=== PATIENT | male | born 1945 | race Caucasian/White ===

== ENCOUNTER 2020-12-20 13:42 | Inpatient (IN) ==
[2020-12-20] MEDS ORDERED: SODIUM CHLORIDE 0.9% 1000ML 1,000 ML IV STA (14:36)
[2020-12-20] MEDS ORDERED: ONDANSETRON INJ 2 MG/ML 2 ML VIAL IV STA (14:36)
[2020-12-20] MEDS ORDERED: SODIUM CHLORIDE 0.9% 500 ML IV STA (14:36)
[2020-12-20 15:02] LABS: Basophils # (auto) 0.02 K/uL (0-0.2); Basophils % (auto) 0.2 %; Eosinophils # (auto) 0.01 K/uL (0-0.5); Eosinophils % (auto) 0.1 %; Hematocrit (blood only) 46.1 % (42-52); Hemoglobin 15.9 g/dL (14.0-18.0); Immature Granulocytes # (auto) 0.05 K/uL (0.00-0.02); Immature Granulocytes % (auto) 0.5 %; Lymphocytes # (auto) 0.74 K/uL (1.2-3.4); Lymphocytes % (auto) 7.6 %; Mean Corpuscular Hemoglobin 32.1 pg (25-34); Mean Corpuscular Hgb Conc 34.5 g/dL (32-36); Mean Corpuscular Volume 92.9 fL (80-100); Monocytes # (auto) 0.66 K/uL (0.11-0.59); Monocytes % (auto) 6.8 %; Neutrophils # (auto) 8.23 K/uL (1.4-6.5); Neutrophils % (auto) 84.8 %; Platelet Count 401 K/uL (130-400); RDW Coefficient of Variation 13.6 % (11.5-14.5); RDW Standard Deviation 46.5 fL (36.4-46.3); Red Blood Count 4.96 M/uL (4.7-6.1); White Blood Count 9.71 K/uL (4.8-10.8)
--- NOTE | 2020-12-20 15:09 | XRay Report ---
XR chest 1V portable CLINICAL HISTORY: Dyspnea, +covid TECHNIQUE: Single frontal radiograph of the chest was obtained. Comparison: None available at the time of this dictation. FINDINGS: No lines and tubes are seen. The cardiomediastinal silhouette is normal. Multifocal airspace opacitie s are seen. No evidence of pleural effusion or pneumothorax. IMPRESSION: Multifocal airspace opacities are seen which likely represent atelectasis, pneumonia, and/or aspirati on. ACT 112: Negative or not required by law. Electronically signed by: Tung Dias M.D. 12/20/2020 3:07 PM
[2020-12-20 15:44] LABS: Alanine Aminotransferase 83 U/L (12-78); Albumin Globulin Ratio 0.6 (0.9-2); Albumin Level 2.8 gm/dl (3.4-5.0); Alkaline Phosphatase 72 U/L (45-117); BUN Creatinine Ratio 23.1 (10-20); Bilirubin,Total 1.3 mg/dl (0.2-1); Blood Urea Nitrogen 24 mg/dl (7-18); Calcium 9.4 mg/dl (8.5-10.1); Carbon Dioxide 23 mmol/L (21-32); Chloride 108 mmol/L (98-107); Est GFR (African American) 83.5 ml/min; Est GFR (Non-African American) 72.1 ml/min; Globulin 4.8 gm/dl (2.5-4.0); Glucose 136 mg/dl (70-99); NT Pro B Type Natriuretic Pept 152 pg/ml (0-900); Sodium 138 mmol/L (136-145); Total Protein 7.6 gm/dl (6.4-8.2); Troponin I < 0.015 ng/ml (0-0.045)
[2020-12-20] MEDS ORDERED: dexAMETHasone**PF** 10 MG/ML VIAL IV ONE (15:49)
[2020-12-20] MEDS ORDERED: ALBUT/IPRATROP 3MG/0.5MG NEB 3 ML VIAL NEB STA (15:52)
[2020-12-20 16:13] LABS: Appearance Urine Clear (Clear); Bacteria Urine Automated Negative (Negative); Bilirubin Urine Negative (Negative); Blood Urine Negative (Negative); Color Urine Orange; Glucose Urine UA Negative (Negative); Ketones Urine Trace (Negative); Leukocyte Esterase Urine Negative (Negative); Nitrite Urine Negative (Negative); Protein Urine 1+ (Negative); RBC Urine Automated 0-4 /hpf (0-4); Specific Gravity Urine 1.029 (1.000-1.030); Urobilinogen Urine Positive (Negative); pH Urine 5.5 (4.5-7.5)
[2020-12-20 16:21] LABS: Potassium 4.2 mmol/L (3.5-5.1)
[2020-12-20 16:26] LABS: Magnesium 2.8 mg/dl (1.8-2.4)
--- NOTE | 2020-12-20 17:06 | Emergency Department Note ---
Impression & Plan COVID-19, Hypoxia, Pneumonia ED Provider Note INFORMANT: Patient ED PROVIDER(S): Jose Purvis MD CHIEF COMPLAINT: Shortness of breath PLAN: Disposition: Admitted Condition: Guarded Outpatient prescription management: none Referral: None MEDICAL DECISION MAKING: Patient presented because of shortness of breath and known Covid infection. A work-up was initiated. His chest x-ray shows significant pneumonia consistent with COVID-19. He was requiring supplemental oxygen via nasal cannula and this had to be increased. He was titrated anoxia mask and then went to high flow oxygen. He was doing better with a high flow oxygen. He was given IV Decadron. He was also given albuterol nebulizer treatment. His hypoxia resolved with the above therapies. He will need further management in the hospital. [facility] Case was discussed. Patient was evaluated in the ER admitted for further management. Triage Nursing notes reviewed and agree them. Vital Signs: reviewed and remarkable for hypoxia Differential diagnosis: Reactive airway disease, pneumonia, pneumothorax, COPD, CHF, infections, cardiac ischemia, pulmonary embolism, musculoskeletal, gastrointestinal, as well as other pathologies. COVID-19, Diagnostics interpreted by me: ECG: Twelve-lead ECG reveals sinus rhythm with PACs at 97 bpm. Poor R wave progression. No ST elevation or depression. No PVCs. Cardiac Monitoring: Cardiac monitoring ordered by me: The patient was placed on continuous cardiac monitoring and observed. It revealed a normal sinus rhythm at 77 beats per minute without ectopy or evidence of dysrhythmia. Imaging studies: Chest x-ray consistent with Covid pneumonia. I refer you to the EMR for further details. HPI: The patient is a 75 year old male who presents to the Emergency Room with complaints of shortness of breath. This started over a week ago and is worsening. The patient also notes the following associated symptoms, cough, fat igue. The patient has been seen at the [facility] and was admitted overnight 5 days ago. He was treated with steroids and discharged with oxygen. The patient states that he has been struggling at home due to the shortness of breath. Current pain is rated as 0/10. Patient is unvaccinated. Pt denies LOC, headache, fevers, chills, diaphoresis, visual changes, neck pain, chest pain, nausea, vomiting, abdominal pain, back pain, melena, hematochezia, urinary symptoms, numbness, focal weakness, lymphadenopathy, rash, or other complaints. ROS: See above HPI for pertinent positives & negatives. A total of 10 systems reviewed and were otherwise negative. PAST MEDICAL HISTORY:See Below , patient denies PAST SURGICAL HISTORY:See Below, appendectomy FAMILY HISTORY:See Below SOCIAL HISTORY:See Below, never-smoker HOME MEDICATIONS:See Below ALLERGIES:See Below VITALS:See Below PHYSICAL EXAMINATION: GENERAL: Awake, alert, dyspneic-appearing, in no distress HENT: Normocephalic, atraumatic. Oropharynx unremarkable. EYES: Normal conjunctiva. Sclera non-icteric. NECK: Inspection normal. Non-tender. Supple. No nuchal rigidity. FROM. No m asses. RESPIRATORY: No wheezes. Scattered rales. Increased respiratory effort. CARDIAC: Normal rate. Normal rhythm. No murmurs. No rubs. Extremities warm and well perfused. Pulses equal. No JVD. GI: Soft, non-distended. No tenderness to palpation. No rebound or guarding. No masses. RECTAL: Deferred. MUSCULOSKELETAL: Atraumatic. Chest examination reveals no tenderness. The back is symmetrical on inspection without obvious abnormality. There is no CVA tenderness to palpation. No joint edema. LOWER EXTREMITIES: Calves are equal size bilaterally and non-tender. Trace edema. No discoloration. NEURO: Normal sensorium. No sensory or motor deficits noted. SKIN: No rash or jaundice noted. CRITICAL CARE: I have personally spent greater than 35 minutes of critical care time in the direct management of this patient. This includes bedside care, interpretation of diagnostic studies, and testing, discussion with consultants, patient, and other required patient management activities. These minutes are in excess of all separately billable procedures. Jose Purvis MD Past Med/Surg History Social History Smoking Status: Never smoker Feels Safe at Home: Yes Results & Data (ED) Vital Signs Vital Signs - 24 hr 12/20/20 13:51 12/20/20 13:56 12/20/20 14:39 Temperature 36.3 C L Temperature Source Temporal Artery Scan Pulse Rate 103 H Pulse Rate [Finger] Respiratory Rate 20 Respiratory Effort / Characteristics Non-Labored Spontaneous Respiratory Depth Normal Respiratory Pattern Regular Blood Pressure 119/83 Blood Pressure [Left Arm] Blood Pressure Mean 95 Blood Pressure Mean [Left Arm] Blood Pressure Position Sitting Pulse Oximetry 83 L 93 Oxygen Delivery Method Room Air Nasal Cannula Oxymask Oxygen Flow Rate 4 6 Fraction of Inspired Oxygen SaO2/FiO2 Ratio Sepsis Recent Fever Within 48 Hours No Sepsis New/Unexplained Change in Mental Status No Sepsis Action Taken by Nursing No Action Required 12/20/20 15:44 12/20/20 16:23 12/20/20 17:05 Temperature Temperature Source Pulse Rate Pulse Rate [Finger] 89 86 77 Respiratory Rate 20 20 24 Respiratory Effort / Characteristics Non-Labored Spontaneous Respiratory Depth Respiratory Pattern Blood Pressure Blood Pressure [Left Arm] 134/94 117/75 Blood Pressure Mean Blood Pressure Mean [Left Arm] 107 89 Blood Pressure Position Pulse Oximetry 83 L 93 93 Oxygen Delivery Method Oxymask High Flow Nasal Cannula High Flow Nasal Cannula Oxygen Flow Rate 7 50 50 Fraction of Inspired Oxygen 100 100 SaO2/FiO2 Ratio 93 Sepsis Recent Fever Within 48 Hours Sepsis New/Unexplained Change in Mental Status Sepsis Action Taken by Nursing Laboratory Data Result diagrams: 12/20/20 14:51 12/20/20 15:57 Lab Results 12/20/20 12/20/20 12/20/20 Range/Units 14:51 14:51 14:55 WBC 9.71 (4.8-10.8) K/uL RBC 4.96 (4.7-6.1) M/uL Hgb 15.9 (14.0-18.0) g/dL Hct 46.1 (42-52) % MCV 92.9 (80-100) fL MCH 32.1 (25-34) pg MCHC 34.5 (32-36) g/dL RDW Std Deviation 46.5 H (36.4-46.3) fL RDW Coeff of Gabriel 13.6 (11.5-14.5) % Plt Count 401 H (130-400) K/uL MPV 10.0 (7.4-10.4) fL Immature Gran % (Auto) 0.5 % Neut % (Auto) 84.8 % Lymph % (Auto) 7.6 % Patrick % (Auto) 6.8 % Eos % (Auto) 0.1 % Baso % (Auto) 0.2 % Neut # (Auto) 8.23 H (1.4-6.5) K/uL Lymph # (Auto) 0.74 L (1.2-3.4) K/uL Patrick # (Auto) 0.66 H (0.11-0.59) K/uL Eos # (Auto) 0.01 (0-0.5) K/uL Baso # (Auto) 0.02 (0-0.2) K/uL Immature Gran # (Auto) 0.05 H (0.00-0.02) K/uL Sodium 138 (136-145) mmol/L Potassium (3.5-5.1) mmol/L Chloride 108 H (98-107) mmol/L Carbon Dioxide 23 (21-32) mmol/L Anion Gap 7.0 (3-11) BUN 24 H (7-18) mg/dl Creatinine 1.02 (0.6-1.4) mg/dl Est Cr Clr Drug Dosing Not Reportable Est GFR ( Amer) 83.5 ml/min Est GFR (Non-Af Amer) 72.1 ml/min BUN/Creatinine Ratio 23.1 H (10-20) Glucose 136 H (70-99) mg/dl Calcium 9.4 (8.5-10.1) mg/dl Magnesium (1.8-2.4) mg/dl Total Bilirubin 1.3 H (0.2-1) mg/dl AST (15-37) U/L ALT 83 H (12-78) U/L Alkaline Phosphatase 72 (45-117) U/L Troponin I < 0.015 (0-0.045) ng/ml NT-Pro-B Natriuret Pep 152 (0-900) pg/ml Total Protein 7.6 (6.4-8.2) gm/dl Albumin 2.8 L (3.4-5.0) gm/dl Globulin 4.8 H (2.5-4.0) gm/dl Albumin/Globulin Ratio 0.6 L (0.9-2) Urine Color Urine Appearance (Clear) Urine pH (4.5-7.5) Ur Specific [place] (1.000-1.030) Urine Protein (Negative) Urine Glucose (UA) (Negative) Urine Ketones (Negative) Urine Blood (Negative) Urine Nitrite (Negative) Urine Bilirubin (Negative) Urine Urobilinogen (Negative) Ur Leukocyte Esterase (Negative) Urine WBC (Auto) (0-5) /hpf Urine RBC (Auto) (0-4) /hpf U Hyaline Cast (Auto) (0-5) /lpf U Epithel Cells (Auto) (0-5) /lpf Urine Bacteria (Auto) (Negative) COVID-19 Eval Order Covid19 at [facility] SARS-CoV-2 (PCR) (Negative) 12/20/20 12/20/20 12/20/20 Range/Units 14:55 15:57 16:05 WBC (4.8-10.8) K/uL RBC (4.7-6.1) M/uL Hgb (14.0-18.0) g/dL Hct (42-52) % MCV (80-100) fL MCH (25-34) pg MCHC (32-36) g/dL RDW Std Deviation (36.4-46.3) fL RDW Coeff of Gabriel (11.5-14.5) % Plt Count (130-400) K/uL MPV (7.4-10.4) fL Immature Gran % (Auto) % Neut % (Auto) % Lymph % (Auto) % Patrick % (Auto) % Eos % (Auto) % Baso % (Auto) % Neut # (Auto) (1.4-6.5) K/uL Lymph # (Auto) (1.2-3.4) K/uL Patrick # (Auto) (0.11-0.59) K/uL Eos # (Auto) (0-0.5) K/uL Baso # (Auto) (0-0.2) K/uL Immature Gran # (Auto) (0.00-0.02) K/uL Sodium (136-145) mmol/L Potassium 4.2 (3.5-5.1) mmol/L Chloride (98-107) mmol/L Carbon Dioxide (21-32) mmol/L Anion Gap (3-11) BUN (7-18) mg/dl Creatinine (0.6-1.4) mg/dl Est Cr Clr Drug Dosing Est GFR ( Amer) ml/min Est GFR (Non-Af Amer) ml/min BUN/Creatinine Ratio (10-20) Glucose (70-99) mg/dl Calcium (8.5-10.1) mg/dl Magnesium 2.8 H (1.8-2.4) mg/dl Total Bilirubin (0.2-1) mg/dl AST 40 H (15-37) U/L ALT (12-78) U/L Alkaline Phosphatase (45-117) U/L Troponin I (0-0.045) ng/ml NT-Pro-B Natriuret Pep (0-900) pg/ml Total Protein (6.4-8.2) gm/dl Albumin (3.4-5.0) gm/dl Globulin (2.5-4.0) gm/dl Albumin/Globulin Ratio (0.9-2) Urine Color [place] Urine Appearance Clear (Clear) Urine pH 5.5 (4.5-7.5) Ur Specific [place] 1.029 (1.000-1.030) Urine Protein 1+ H (Negative) Urine Glucose (UA) Negative (Negative) Urine Ketones Trace H (Negative) Urine Blood Negative (Negative) Urine Nitrite Negative (Negative) Urine Bilirubin Negative (Negative) Urine Urobilinogen Positive H (Negative) Ur Leukocyte Esterase Negative (Negative) Urine WBC (Auto) 1-5 (0-5) /hpf Urine RBC (Auto) 0-4 (0-4) /hpf U Hyaline Cast (Auto) 5-10 H (0-5) /lpf U Epithel Cells (Auto) 5-10 H (0-5) /lpf Urine Bacteria (Auto) Negative (Negative) COVID-19 Eval Order SARS-CoV-2 (PCR) POSITIVE A* (Negative) Administered Medications Sodium Chloride (Nss 1000ml) 1,000 mls @ 125 mls/hr IV .Q8H STA Stop: 12/20/20 22:35 Last Infusion: 12/20/20 16:24 Dose: 0 mls/hr Documented by: [id number] Admin: 12/20/20 15:39 Dose: 125 mls/hr Documented by: [id number] Discontinued Medications Albuterol (Albut/Ipratrop 3mg/0.5mg Neb 3 Ml Vial) 3 ml NEB NOW STA Stop: 12/20/20 15:53 Last Admin: 12/20/20 16:08 Dose: 3 ml Documented by: [id number] Dexamethasone Sodium Phosphate (DexamethasonePf 10 Mg/Ml Vial) 6 mg IV NOW ONE Stop: 12/20/20 15:50 Last Admin: 12/20/20 16:04 Dose: 6 mg Documented by: [id number] Sodium Chloride (Nss) 500 mls @ 999 mls/hr IV .Q31M STA Stop: 12/20/20 15:06 Last Infusion: 12/20/20 16:24 Dose: 0 mls/hr Documented by: [id number] Admin: 12/20/20 15:39 Dose: 999 mls/hr Documented by: [id number] Ondansetron HCl (Ondansetron Inj 2 Mg/Ml 2 Ml Vial) 4 mg IV NOW STA Stop: 12/20/20 14:37 Last Admin: 12/20/20 15:39 Dose: 4 mg Documented by: [id number] Imaging Data Radiologist's Impression: Chest X-Ray 12/20/20 14:36 XR chest 1V portable CLINICAL HISTORY: Dyspnea, +covid TECHNIQUE: Single frontal radiograph of the chest was obtained. Comparison: None available at the time of this dictation. FINDINGS: No lines and tubes are seen. The cardiomediastinal silhouette is normal. Multifocal airspace opacities are seen. No evidence of pleural effusion or pneumothorax. IMPRESSION: Multifocal airspace opacities are seen which likely represent atelectasis, pneumonia, and/or aspiration. ACT 112: Negative or not required by law. Electronically signed by: Tung Dais M.D. 12/20/2020 3:07 PM Discharge Plan Visit Data Chief Complaint: Illness Stated Complaint: PNEUMONIA, COVID+, SOB ED Provider: Jose Purvis Discharge Problem: COVID-19, Hypoxia, Pneumonia Forms Stand Alone Forms: My [facility] Referrals Referrals: PCP,NO [Primary Care Provider] -
--- NOTE | 2020-12-20 17:32 | History & Physical Report ---
Date of Service December 20, 2020 Assessment & Plan (1) Acute respiratory failure: Plan: Approx 12-13 days of symptoms at this point-no remdesivir offered. Pt questioned me about hydroxychloroquine and we discussed why this is inappropriate. He denied using this or other methods of treating this current pneumonia. He reports taking vitamins at home. He was taking prednisone at home but not eating much and ultimately needs hi flow oxygen support at this time. Cont to provide hi flow support and encourage to prone as often as possible. Cont decadron daily. Trend CRP. (2) Pneumonia due to COVID-19 virus: Plan: Cont plan as above. (3) Appetite loss: Plan: 2/2 viral illness. Regular unrestricted diet ordered. Monitor PO intake as this has been poor at home. (4) DVT prophylaxis: Plan: Lovenox Full Code Dispo-to PCU. [facility] History of Present Illness Chief Complaint: worsening shortness of breath Primary Care Provider: NO PCP 75 yo M who presents with worsening shortness of breath. He reports having a nonproductive cough and generalized malaise with some nausea and low appetite since mid November. He then went to an urgent care where he was found to be hypoxic and was then sent to the ER in [place], [place]. There he reports being admitted overnight and was given steroids. He reports a "workup for blood clot" which was negative. He was diagnosed at that time with covid pneumonia and was sent home after one day with oxygen at 4LPM. He reports feeling weak and uncertain on his feet at home, with increasing worsening shortness of breath. His cough has resolved. He denies any fevers, chills, abdominal pain, chest pain, headache, urinary symptoms, GI symptoms. He is still not eating much reportedly eating only applesauce yesterday and nothing today. He is requiring hi flow oxygen supplementation in the ER. He has persistent pneumonia on chest imaging. I contacted his by phone who has similar symptoms and corroborates his story. Allergies Allergy/AdvReac Type Severity Reaction Status Date / Time No Known Allergies Allergy Unverified 12/20/20 18:19 Home Medications Medication Instructions Recorded Confirmed Type albuterol sulfate 90 mcg/actuation 2 puff INHALATION Q4 PRN 12/20/20 12/20/20 History aerosol inhaler prednisone 20 mg tablet 40 mg PO BID 12/20/20 12/20/20 History Past Med/Surg History Medical History No significant medical problems Surgical History History of prostate biopsy S/P appy S/P left rotator cuff repair Family History Family/Other Silicosis Social History Smoking Status: Former smoker Tobacco Type: Cigarettes Years Smoked: 11; Smoking End Date: 1980; Number of Years Since Quit: 49; Hx Alcohol Use: No Hx Substance Use: No Preferred Language: Sami Communication Ability: Effective Check Services Clerk Required: No Beliefs That Will Affect Care: None marital status: Current Living Situation: Spouse Feels Safe at Home: Yes Safety Concerns: Feels Safe At This Time Review of Systems Review of Systems: CONSTITUTIONAL: no fevers or chills ENT: denies sore throat or cough RESPIRATORY: denies cough, +SOB worsening. CARDIOVASCULAR: denies chest pain GASTROINTESTINAL: +malaise, +nausea, -pain MUSCULOSKELETAL: +weakness, +unsteady on his feet. SKIN: no rashes NEUROLOGIC: no sensation loss, denies headache Physical Exam Physical Exam: CONSTITUTIONAL: WNWD, vitals as above, generally well- appearing, NAD EYES: normal conjunctivae, no scleral icterus ENT: external ear and nose normal, oropharynx clear, MMM NECK: trachea midline RESPIRATORY: course rhonchi at bases bilaterally, no wheezing or rales, no increased respiratory effort. CARDIOVASCULAR: regular rate and rhythm, S1 and 2 heard without murmurs, gallops or rubs, no JVD, no peripheral edema CHEST: inspection of chest was normal GASTROINTESTINAL: soft, nontender, ND MUSCULOSKELETAL: strength 5/5 throughout, head is normocephalic and atraumatic SKIN: warm and dry NEUROLOGIC: No facial palsy, no dysarthria. CN 2-12 grossly intact, no sensory deficit, normal cognition, normal speech, no tremor PSYCHIATRIC: alert cooperative and oriented to person, place and time. Results & Data Results & Data ([facility]) Vital Signs (Past 12 Hours) Vital Signs Temp Pulse Pulse Resp BP BP Pulse Ox 12/20/20 17:05 77 24 117/75 93 12/20/20 16:23 86 20 93 12/20/20 15:44 89 20 134/94 83 L 12/20/20 14:39 93 12/20/20 13:51 36.3 C L 103 H 20 119/83 83 L Laboratory Results Short CBC 12/20/20 Range/Units 14:51 WBC 9.71 (4.8-10.8) K/uL Hgb 15.9 (14.0-18.0) g/dL Hct 46.1 (42-52) % Plt Count 401 H (130-400) K/uL BMP 12/20/20 12/20/20 14:51 15:57 Sodium 138 Potassium 4.2 Chloride 108 H Carbon Dioxide 23 BUN 24 H Creatinine 1.02 Glucose 136 H Calcium 9.4 Cardiac Enzymes 12/20/20 Range/Units 14:51 Troponin I < 0.015 (0-0.045) ng/ml Liver Function 12/20/20 12/20/20 Range/Units 14:51 15:57 Total Bilirubin 1.3 H (0.2-1) mg/dl AST 40 H (15-37) U/L ALT 83 H (12-78) U/L Alkaline Phosphatase 72 (45-117) U/L Albumin 2.8 L (3.4-5.0) gm/dl Urine 12/20/20 Range/Units 16:05 Urine Color [place] Urine Appearance Clear (Clear) Urine pH 5.5 (4.5-7.5) Ur Specific [place] 1.029 (1.000-1.030) Urine Protein 1+ H (Negative) Urine Glucose (UA) Negative (Negative) Diagnostic Findings Chest X-Ray 12/20/20 14:36 XR chest 1V portable CLINICAL HISTORY: Dyspnea, +covid TECHNIQUE: Single frontal radiograph of the chest was obtained. Comparison: None available at the time of this dictation. FINDINGS: No lines and tubes are seen. The cardiomediastinal silhouette is normal. Multifocal airspace opacities are seen. No evidence of pleural effusion or pneumothorax. IMPRESSION: Multifocal airspace opacities are seen which likely represent atelectasis, pneumonia, and/or aspiration. ACT 112: Negative or not required by law. Electronically signed by: Tung Dias M.D. 12/20/2020 3:07 PM Medications Administered Code Status & VTE Plan VTE Prophylaxis Plan VTE Prophylaxis will be ordered: Yes
[2020-12-20] MEDS ORDERED: ONDANSETRON INJ 2 MG/ML 2 ML VIAL IV PRN ×2 (18:30→19:19)
[2020-12-20] MEDS ORDERED: POLYETHYLENE (MIRALAX) 17 GM PACK PO PRN (19:19)
[2020-12-20] MEDS ORDERED: PROMETHAZINE HCL 25 MG TAB PO PRN (19:35)
[2020-12-20] MEDS: ASCORBIC ACID 500 MG TAB PO SCH (21:39)
[2020-12-20] MEDS: ENOXAPARIN INJ 40 MG/0.4 ML SYR SQ SCH (21:39)
--- NOTE | 2020-12-21 06:14 | Electrocardiogram Report ---
Test Reason : Blood Pressure : / mmHG Vent. Rate : 097 BPM Atrial Rate : 097 BPM P-R Int : 162 ms QRS Dur : 082 ms QT Int : 338 ms P-R-T Axes : 039 013 047 degrees QTc Int : 429 ms Poor data quality, interpretation may be adversely affected Sinus rhythm with Premature atrial complexes Possible Anterior infarct , age undetermined Abnormal ECG No previous ECGs available Confirmed by Farhad Morel ([id number]) on 12/21/2020 6:14:01 AM Referred By: Confirmed By:Farhad Morel
[2020-12-21 08:24] LABS: Hematocrit (blood only) 45.4 % (42-52); Hemoglobin 15.1 g/dL (14.0-18.0); Mean Corpuscular Hemoglobin 31.7 pg (25-34); Mean Corpuscular Hgb Conc 33.3 g/dL (32-36); Mean Corpuscular Volume 95.4 fL (80-100); Mean Platelet Volume 10.1 fL (7.4-10.4); Platelet Count 351 K/uL (130-400); RDW Coefficient of Variation 13.8 % (11.5-14.5); RDW Standard Deviation 48.4 fL (36.4-46.3); Red Blood Count 4.76 M/uL (4.7-6.1); White Blood Count 10.41 K/uL (4.8-10.8)
[2020-12-21 08:56] LABS: Albumin Level 2.3 gm/dl (3.4-5.0); C Reactive Protein 2.72 mg/dl (0-0.29); Calcium 8.7 mg/dl (8.5-10.1); Creatinine Clr Calc Pharmacy 104.7 ml/min; Est GFR (African American) 105.3 ml/min; Est GFR (Non-African American) 90.9 ml/min; Magnesium 2.8 mg/dl (1.8-2.4); Potassium 4.4 mmol/L (3.5-5.1)
[2020-12-21 08:59] LABS: Albumin Globulin Ratio 0.6 (0.9-2); Globulin 4.1 gm/dl (2.5-4.0); Phosphorus 3.7 mg/dl (2.5-4.9); Total Protein 6.4 gm/dl (6.4-8.2)
[2020-12-21] MEDS: dexAMETHasone 6 MG in SYRINGE 0 ML IV SCH (09:03)
[2020-12-21] MEDS: ZINC SULFATE 220 MG CAPSULE PO SCH (09:04)
[2020-12-21] MEDS: ASCORBIC ACID 500 MG TAB PO SCH ×2 (09:04→19:36)
[2020-12-21] MEDS: CHOLECALCIFEROL 1,000 UNITS 25 MCG TAB PO SCH (09:04)
[2020-12-21 10:44] LABS: Estimated Average Glucose 134 mg/dl; Hemoglobin A1C 6.3 % (4.5-5.6)
[2020-12-21] MEDS ORDERED: FUROSEMIDE 40 MG/4 ML VIAL IV ONE (13:05)
--- NOTE | 2020-12-21 14:24 | Hospitalist Progress Note ---
Date of Service December 21, 2020 Assessment & Plan (1) Acute respiratory failure: Plan: Not being vaccinated for COVID-19 Approx 12-13 days of symptoms at this point-no remdesivir offered. Pt questioned me about hydroxychloroquine and we discussed why this is inappropriate. He denied using this or other methods of treating this current pneumonia. He reports taking vitamins at home. He was taking prednisone at home but not eating much and ultimately needs hi flow oxygen support at this time. Cont to provide hi flow support and encourage to prone as often as possible. Cont decadron daily. Clinically not any better and has been requiring high flow nasal cannula oxygen to maintain saturation CRP has been down to 2.72 from 3.50 on admission We will continue current management and give Lasix 40 mg x 1 today (2) Pneumonia due to COVID-19 virus: Plan: Cont plan as above. (3) Appetite loss: Plan: 2/2 viral illness. Regular unrestricted diet ordered. Monitor PO intake as this has been poor at home. (4) DVT prophylaxis: Plan: Lovenox Full Code Dispo-to PCU. Admission and Anticipated Discharge Date Admission Date: December 20, 2020 Subjective 12/21/2020 The patient was seen and examined in telemetry unit and in the Covid room He has been stable but requiring maximum high flow nasal cannula oxygen to maintain saturation Has cough but denies any pain Review of Systems Review of Systems: All systems reviewed and are unremarkable except as noted below Respiratory: Moderate shortness of breath at rest Physical Exam Physical Exam: Lying in bed with moderate shortness of breath Constitutional: + acute distress (Due to shortness of breath), + ill appearing and average body habitus Eyes: PERRL, conjunctivae normal, anicteric sclerae ENMT: external ear and nose normal, oropharynx normal Neck: trachea midline, no thyromegaly Respiratory: + respiratory distress, + labored breathing and + cough Auscultation: + diminished lung sounds and + crackles (At the bases) Cardiovascular: Rate/Rhythm: regular rate and regular rhythm; not tachycardic Heart Sounds: normal S1 and normal S2; no murmur Extremities: + edema (Trace edema bilaterally) Gastrointestinal (Abdomen): Inspection/Auscultation: normal bowel sounds; abdomen not distended Percussion/Palpation: abdomen soft; abdomen nontender Musculoskeletal: No acute arthritis in any joint Neurologic: Alert, awake and oriented x3. Generally weak and lethargic Lymphatic: no cervical or axillary lymphadenopathy Results & Data Results & Data ([facility]) Vital Signs (Past 12 Hours) Vital Signs Temp Pulse Pulse Resp BP Pulse Ox 12/21/20 11:13 37.0 C 91 H 20 120/77 89 L 12/21/20 10:39 78 28 H 94 12/21/20 08:00 61 12/21/20 07:50 37.0 C 98 H 20 127/83 93 12/21/20 07:29 87 22 95 12/21/20 04:51 70 12/21/20 04:47 37.0 C 101 H 13 114/78 94 12/21/20 03:05 22 94 Laboratory Results Short CBC 12/20/20 12/21/20 Range/Units 14:51 07:39 WBC 9.71 10.41 (4.8-10.8) K/uL Hgb 15.9 15.1 (14.0-18.0) g/dL Hct 46.1 45.4 (42-52) % Plt Count 401 H 351 (130-400) K/uL BMP 12/20/20 12/20/20 12/21/20 14:51 15:57 07:39 Sodium 138 142 Potassium 4.2 4.4 Chloride 108 H 113 H Carbon Dioxide 23 22 BUN 24 H 22 H Creatinine 1.02 0.74 Glucose 136 H 81 Calcium 9.4 8.7 Cardiac Enzymes 12/20/20 Range/Units 14:51 Troponin I < 0.015 (0-0.045) ng/ml Liver Function 12/20/20 12/20/20 12/21/20 Range/Units 14:51 15:57 07:39 Total Bilirubin 1.3 H 1.0 (0.2-1) mg/dl AST 40 H 35 (15-37) U/L ALT 83 H 60 (12-78) U/L Alkaline Phosphatase 72 58 (45-117) U/L Albumin 2.8 L 2.3 L (3.4-5.0) gm/dl Urine 12/20/20 Range/Units 16:05 Urine Color [place] Urine Appearance Clear (Clear) Urine pH 5.5 (4.5-7.5) Ur Specific [place] 1.029 (1.000-1.030) Urine Protein 1+ H (Negative) Urine Glucose (UA) Negative (Negative) Medications Administered Current Inpatient Medications Acetaminophen (Acetaminophen 325 Mg Tab) 650 mg PO Q4H PRN PRN Reason: Pain or Fever Stop: 01/19/21 19:18 Ascorbic Acid (Ascorbic Acid 500 Mg Tab) 500 mg PO BID [facility] Stop: 01/19/21 20:59 Last Admin: 12/21/20 09:04 Dose: 500 mg Documented by: Enoxaparin Sodium (Enoxaparin Inj 40 Mg/0.4 Ml Syr) 40 mg SQ HS [facility] Stop: 01/19/21 20:59 Last Admin: 12/20/20 21:39 Dose: 40 mg Documented by: Dexamethasone 6 mg/ Syringe 1.5 mls @ 1 mls/min IV DAILY [facility] Stop: 01/20/21 08:59 Last Admin: 12/21/20 09:03 Dose: 1 mls/min Documented by: Ondansetron HCl (Ondansetron Inj 2 Mg/Ml 2 Ml Vial) 4 mg IV Q6H PRN PRN Reason: Nausea Stop: 01/19/21 19:18 Polyethylene Glycol (Polyethylene (Miralax) 17 Gm Pack) 17 gm PO DAILY PRN PRN Reason: Constipation Stop: 01/19/21 19:18 Promethazine HCl (Promethazine Hcl 25 Mg Tab) 25 mg PO Q6H PRN PRN Reason: Nausea And Vomiting Stop: 01/19/21 19:34 Vitamin D (Cholecalciferol 1,000 Units 25 Mcg Tab) 1,000 units PO [facility] Stop: 01/20/21 08:59 Last Admin: 12/21/20 09:04 Dose: 1,000 units Documented by: Zinc Sulfate (Zinc Sulfate 220 Mg Capsule) [facility] [place] Stop: 01/20/21 08:59 Last Admin: 12/21/20 09:04 Dose: 220 mg Documented by:
[2020-12-21] MEDS: ENOXAPARIN INJ 40 MG/0.4 ML SYR SQ SCH (19:35)
[2020-12-22 07:17] LABS: BUN Creatinine Ratio 29.2 (10-20); Creatinine Clr Calc Pharmacy 101.7 ml/min; Est GFR (African American) 100.5 ml/min; Est GFR (Non-African American) 86.7 ml/min; Magnesium 2.6 mg/dl (1.8-2.4); Phosphorus 3.2 mg/dl (2.5-4.9); Potassium 3.7 mmol/L (3.5-5.1)
[2020-12-22] MEDS: ASCORBIC ACID 500 MG TAB PO SCH ×2 (08:37→19:35)
[2020-12-22] MEDS: CHOLECALCIFEROL 1,000 UNITS 25 MCG TAB PO SCH (08:37)
[2020-12-22] MEDS: ZINC SULFATE 220 MG CAPSULE PO SCH (08:37)
[2020-12-22] MEDS: dexAMETHasone 6 MG in SYRINGE 0 ML IV SCH (08:38)
[2020-12-22] MEDS ORDERED: POTASSIUM CHLORIDE CRTAB 20 MEQ TABCR PO STA (14:59)
[2020-12-22] MEDS ORDERED: FUROSEMIDE 40 MG/4 ML VIAL IV ONE (14:59)
--- NOTE | 2020-12-22 14:59 | Hospitalist Progress Note ---
Date of Service December 22, 2020 Assessment & Plan (1) Acute respiratory failure: Plan: Not being vaccinated for COVID-19 Approx 12-13 days of symptoms at this point-no remdesivir offered. Pt questioned me about hydroxychloroquine and we discussed why this is inappropriate. He denied using this or other methods of treating this current pneumonia. He reports taking vitamins at home. He was taking prednisone at home but not eating much and ultimately needs hi flow oxygen support at this time. Cont to provide hi flow support and encourage to prone as often as possible. Cont decadron daily. Clinically not any better and has been requiring high flow nasal cannula oxygen to maintain saturation CRP has been down to 2.72 from 3.50 on admission We will continue current management and give Lasix 40 mg x 1 today Clinically better and will give another dose of Lasix today Continue current management (2) Pneumonia due to COVID-19 virus: Plan: Cont plan as above. (3) Appetite loss: Plan: 2/2 viral illness. Regular unrestricted diet ordered. Monitor PO intake as this has been poor at home. (4) DVT prophylaxis: Plan: Lovenox Full Code Dispo-to PCU. Admission and Anticipated Discharge Date Admission Date: December 20, 2020 Subjective 12/21/2020 The patient was seen and examined in telemetry unit and in the Covid room He has been stable but requiring maximum high flow nasal cannula oxygen to maintain saturation Has cough but denies any pain 12/22/2020 The patient was seen and examined in telemetry unit and in the Covid room He has been feeling better but is still requiring 50 L of oxygen with 0.9 FiO2 to maintain saturation Denies any significant symptoms at rest Review of Systems Review of Systems: All systems reviewed and are unremarkable except as noted below Respiratory: Moderate shortness of breath at rest Physical Exam Physical Exam: Lying in bed with moderate shortness of breath Constitutional: + acute distress (Due to shortness of breath), + ill appearing and average body habitus Eyes: PERRL, conjunctivae normal, anicteric sclerae ENMT: external ear and nose normal, oropharynx normal Neck: trachea midline, no thyromegaly Respiratory: + respiratory distress, + labored breathing and + cough Auscultation: + diminished lung sounds and + crackles (At the bases) Cardiovascular: Rate/Rhythm: regular rate and regular rhythm; not tachycardic Heart Sounds: normal S1 and normal S2; no murmur Extremities: + edema (Trace edema bilaterally) Gastrointestinal (Abdomen): Inspection/Auscultation: normal bowel sounds; abdomen not distended Percussion/Palpation: abdomen soft; abdomen nontender Musculoskeletal: No acute arthritis in any joint Neurologic: Alert, awake and oriented x3. Generally weak but no focal sensory and motor deficit appreciated Psychiatric: A+Ox3, euthymic affect Lymphatic: no cervical or axillary lymphadenopathy Results & Data Results & Data ([facility]) Vital Signs (Past 12 Hours) Vital Signs Temp Pulse Pulse Resp BP Pulse Ox 12/22/20 14:52 106 H 24 95 12/22/20 11:21 36.9 C 93 H 20 107/75 91 12/22/20 11:15 89 21 96 12/22/20 08:06 82 20 91 12/22/20 08:00 86 12/22/20 07:00 37.2 C 100 H 20 109/74 87 L Laboratory Results [facility] 12/22/20 05:26 Sodium 136 Potassium 3.7 D Chloride 105 Carbon Dioxide 24 BUN 24 H Creatinine 0.83 Glucose 99 Calcium 9.0 Medications Administered Current Inpatient Medications Acetaminophen (Acetaminophen 325 Mg Tab) 650 mg PO Q4H PRN PRN Reason: Pain or Fever Stop: 01/19/21 19:18 Ascorbic Acid (Ascorbic Acid 500 Mg Tab) 500 mg PO BID EN Stop: 01/19/21 20:59 Last Admin: 12/22/20 08:37 Dose: 500 mg Documented by: Enoxaparin Sodium (Enoxaparin Inj 40 Mg/0.4 Ml Syr) 40 mg SQ HS EN Stop: 01/19/21 20:59 Last Admin: 12/21/20 19:35 Dose: 40 mg Documented by: Dexamethasone 6 mg/ Syringe 1.5 mls @ 1 mls/min IV DAILY EN Stop: 01/20/21 08:59 Last Admin: 12/22/20 08:38 Dose: 1 mls/min Documented by: Ondansetron HCl (Ondansetron Inj 2 Mg/Ml 2 Ml Vial) 4 mg IV Q6H PRN PRN Reason: Nausea Stop: 01/19/21 19:18 Polyethylene Glycol (Polyethylene (Miralax) 17 Gm Pack) 17 gm PO DAILY PRN PRN Reason: Constipation Stop: 01/19/21 19:18 Promethazine HCl (Promethazine Hcl 25 Mg Tab) 25 mg PO Q6H PRN PRN Reason: Nausea And Vomiting Stop: 01/19/21 19:34 Vitamin D (Cholecalciferol 1,000 Units 25 Mcg Tab) 1,000 units PO [facility] Stop: 01/20/21 08:59 Last Admin: 12/22/20 08:37 Dose: 1,000 units Documented by: Zinc Sulfate (Zinc Sulfate 220 Mg Capsule) 220 mg PO [facility] Stop: 01/20/21 08:59 Last Admin: 12/22/20 08:37 Dose: 220 mg Documented by:
[2020-12-22] MEDS: ENOXAPARIN INJ 40 MG/0.4 ML SYR SQ SCH (19:35)
[2020-12-22] MEDS: ACETAMINOPHEN 325 MG TAB PO PRN (19:42)
[2020-12-23] MEDS: CHOLECALCIFEROL 1,000 UNITS 25 MCG TAB PO SCH (08:28)
[2020-12-23] MEDS: ASCORBIC ACID 500 MG TAB PO SCH ×2 (08:28→20:45)
[2020-12-23] MEDS: ZINC SULFATE 220 MG CAPSULE PO SCH (08:28)
[2020-12-23] MEDS: dexAMETHasone 6 MG in SYRINGE 0 ML IV SCH (08:28)
--- NOTE | 2020-12-23 13:50 | Hospitalist Progress Note ---
Date of Service December 23, 2020 Assessment & Plan (1) Acute respiratory failure: Plan: Not being vaccinated for COVID-19 Approx 12-13 days of symptoms at this point-no remdesivir offered. Pt questioned me about hydroxychloroquine and we discussed why this is inappropriate. He denied using this or other methods of treating this current pneumonia. He reports taking vitamins at home. He was taking prednisone at home but not eating much and ultimately needs hi flow oxygen support at this time. Cont to provide hi flow support and encourage to prone as often as possible. Cont decadron daily. Clinically not any better and has been requiring high flow nasal cannula oxygen to maintain saturation CRP has been down to 2.72 from 3.50 on admission Has been getting Lasix intravenously on a day-to-day basis Condition has not improved and is still requiring very high flow oxygen We will check again the inflammatory markers tomorrow (2) Pneumonia due to COVID-19 virus: Plan: Cont plan as above. (3) Appetite loss: Plan: 2/2 viral illness. Regular unrestricted diet ordered. Monitor PO intake as this has been poor at home. (4) DVT prophylaxis: Plan: Lovenox Full Code Dispo-to PCU. We will discuss with the significant other Admission and Anticipated Discharge Date Admission Date: December 20, 2020 Subjective 12/21/2020 The patient was seen and examined in telemetry unit and in the Covid room He has been stable but requiring maximum high flow nasal cannula oxygen to maintain saturation Has cough but denies any pain 12/22/2020 The patient was seen and examined in telemetry unit and in the Covid room He has been feeling better but is still requiring 50 L of oxygen with 0.9 FiO2 to maintain saturation Denies any significant symptoms at rest 12/23/2020 The patient was seen and examined in telemetry unit in the Covid room He has been feeling better but is still requiring very high flow oxygen to maintain saturation So in other words he has not improved Remains weak and lethargic Review of Systems Review of Systems: All systems reviewed and are unremarkable except as noted below Respiratory: Moderate shortness of breath at rest Physical Exam Physical Exam: Lying in bed with moderate shortness of breath Constitutional: + acute distress (Due to shortness of breath), + ill appearing and average body habitus Eyes: PERRL, conjunctivae normal, anicteric sclerae ENMT: external ear and nose normal, oropharynx normal Neck: trachea midline, no thyromegaly Respiratory: + respiratory distress, + labored breathing and + cough Auscultation: + diminished lung sounds and + crackles (At the bases) Cardiovascular: Rate/Rhythm: regular rate and regular rhythm; not tachycardic Heart Sounds: normal S1 and normal S2; no murmur Extremities: + edema (Trace edema bilaterally) Gastrointestinal (Abdomen): Inspection/Auscultation: normal bowel sounds; abdomen not distended Percussion/Palpation: abdomen soft; abdomen nontender Musculoskeletal: No acute arthritis in any joint Neurologic: Alert, awake and oriented x3. Generally very weak and lethargic Psychiatric: A+Ox3, euthymic affect Lymphatic: no cervical or axillary lymphadenopathy Results & Data Results & Data ([facility]) Vital Signs (Past 12 Hours) Vital Signs Temp Pulse Pulse Resp BP Pulse Ox 12/23/20 11:56 36.7 C 85 22 100/61 91 12/23/20 11:10 79 20 91 12/23/20 08:10 36.6 C 85 30 H 119/70 93 12/23/20 08:00 81 12/23/20 05:30 79 25 H 92 12/23/20 03:21 36.8 C 83 22 111/72 90 12/23/20 02:47 73 18 88 L Medications Administered Current Inpatient Medications Acetaminophen (Acetaminophen 325 Mg Tab) 650 mg PO Q4H PRN PRN Reason: Pain or Fever Stop: 01/19/21 19:18 Last Admin: 12/22/20 19:42 Dose: 650 mg Documented by: Ascorbic Acid (Ascorbic Acid 500 Mg Tab) 500 mg PO BID EN Stop: 01/19/21 20:59 Last Admin: 12/23/20 08:28 Dose: 500 mg Documented by: Enoxaparin Sodium (Enoxaparin Inj 40 Mg/0.4 Ml Syr) 40 mg SQ HS EN Stop: 01/19/21 20:59 Last Admin: 12/22/20 19:35 Dose: 40 mg Documented by: Dexamethasone 6 mg/ Syringe 1.5 mls @ 1 mls/min IV DAILY EN Stop: 01/20/21 08:59 Last Admin: 12/23/20 08:28 Dose: 1 mls/min Documented by: Ondansetron HCl (Ondansetron Inj 2 Mg/Ml 2 Ml Vial) 4 mg IV Q6H PRN PRN Reason: Nausea Stop: 01/19/21 19:18 Polyethylene Glycol (Polyethylene (Miralax) 17 Gm Pack) 17 gm PO DAILY PRN PRN Reason: Constipation Stop: 01/19/21 19:18 Promethazine HCl (Promethazine Hcl 25 Mg Tab) 25 mg PO Q6H PRN PRN Reason: Nausea And Vomiting Stop: 01/19/21 19:34 Vitamin D (Cholecalciferol 1,000 Units 25 Mcg Tab) 1,000 units PO [facility] Stop: 01/20/21 08:59 Last Admin: 12/23/20 08:28 Dose: 1,000 units Documented by: Zinc Sulfate (Zinc Sulfate 220 Mg Capsule) 220 mg PO [facility] Stop: 01/20/21 08:59 Last Admin: 12/23/20 08:28 Dose: 220 mg Documented by:
[2020-12-23] MEDS: ENOXAPARIN INJ 40 MG/0.4 ML SYR SQ SCH (20:45)
[2020-12-24 06:34] LABS: Est GFR (African American) 102.5 ml/min; Est GFR (Non-African American) 88.5 ml/min
[2020-12-24] MEDS: ZINC SULFATE 220 MG CAPSULE PO SCH (08:37)
[2020-12-24] MEDS: CHOLECALCIFEROL 1,000 UNITS 25 MCG TAB PO SCH (08:37)
[2020-12-24] MEDS: ASCORBIC ACID 500 MG TAB PO SCH ×2 (08:37→20:07)
[2020-12-24] MEDS: dexAMETHasone 6 MG in SYRINGE 0 ML IV SCH (08:38)
[2020-12-24] MEDS ORDERED: SALINE NASAL 225 SPRAYS, GENTAMICIN SULFATE 60 MG, BARCODE IDENTIFIER 0 EA PRN (11:01)
[2020-12-24] MEDS ORDERED: SODIUM CHLORIDE 0.65% NA SOLN 45 ML (OCEAN) NAE SCH (11:15)
[2020-12-24] MEDS ORDERED: SODIUM CHLORIDE 0.65% NA SOLN 45 ML (OCEAN) PRN (11:28)
--- NOTE | 2020-12-24 13:06 | Hospitalist Progress Note ---
Date of Service December 24, 2020 Assessment & Plan (1) Acute respiratory failure: Plan: Not being vaccinated for COVID-19 Approx 12-13 days of symptoms at this point-no remdesivir offered. Pt questioned me about hydroxychloroquine and we discussed why this is inappropriate. He denied using this or other methods of treating this current pneumonia. He reports taking vitamins at home. He was taking prednisone at home but not eating much and ultimately needs hi flow oxygen support at this time. Cont to provide hi flow support and encourage to prone as often as possible. Cont decadron daily. Clinically not any better and has been requiring high flow nasal cannula oxygen to maintain saturation CRP has been down to 2.72 from 3.50 on admission Has been getting Lasix intravenously on a day-to-day basis Condition has not improved and is still requiring very high flow oxygen Not being any better and the is being informed daily May need intubation for continued care-we will discuss with pulmonary tomorrow (2) Pneumonia due to COVID-19 virus: Plan: Cont plan as above. Condition has not been improving (3) Appetite loss: Plan: 2/2 viral illness. Regular unrestricted diet ordered. Monitor PO intake as this has been poor at home. (4) DVT prophylaxis: Plan: Lovenox Full Code Dispo-to PCU. We will discuss with the significant other Admission and Anticipated Discharge Date Admission Date: December 20, 2020 Subjective 12/21/2020 The patient was seen and examined in telemetry unit and in the Covid room He has been stable but requiring maximum high flow nasal cannula oxygen to maintain saturation Has cough but denies any pain 12/22/2020 The patient was seen and examined in telemetry unit and in the Covid room He has been feeling better but is still requiring 50 L of oxygen with 0.9 FiO2 to maintain saturation Denies any significant symptoms at rest 12/23/2020 The patient was seen and examined in telemetry unit in the Covid room He has been feeling better but is still requiring very high flow oxygen to maintain saturation So in other words he has not improved Remains weak and lethargic 12/24/2020 The patient was seen and examined in telemetry unit and in the Covid room His condition has not improved in any way Still requiring up to 60 L of oxygen with 100% FiO2 to maintain saturation Review of Systems Review of Systems: All systems reviewed and are unremarkable except as noted below Respiratory: Moderate shortness of breath at rest Physical Exam Physical Exam: Lying in bed with moderate shortness of breath Constitutional: + acute distress (Due to shortness of breath), + ill appearing and average body habitus Eyes: PERRL, conjunctivae normal, anicteric sclerae ENMT: external ear and nose normal, oropharynx normal Neck: trachea midline, no thyromegaly Respiratory: + respiratory distress, + labored breathing and + cough Auscultation: + diminished lung sounds and + crackles (At the bases) Cardiovascular: Rate/Rhythm: regular rate and regular rhythm; not tachycardic Heart Sounds: normal S1 and normal S2; no murmur Extremities: + edema (Trace edema bilaterally) Gastrointestinal (Abdomen): Inspection/Auscultation: normal bowel sounds; abdomen not distended Percussion/Palpation: abdomen soft; abdomen nontender Musculoskeletal: No acute arthritis in any joint Neurologic: Alert, awake and oriented x3. He generally very weak and lethargic Psychiatric: A+Ox3, euthymic affect Lymphatic: no cervical or axillary lymphadenopathy Results & Data Results & Data ([facility]) Vital Signs (Past 12 Hours) Vital Signs Temp Pulse Pulse Pulse Resp BP Pulse Ox 12/24/20 12:38 36.8 C 77 20 110/75 94 12/24/20 10:53 87 23 12/24/20 09:36 90 12/24/20 07:38 93 H 25 H 90 12/24/20 07:12 36.6 C 100 H 20 108/71 90 12/24/20 03:32 36.6 C 89 24 107/72 90 12/24/20 01:59 82 20 90 Laboratory Results [facility] 12/24/20 05:35 Creatinine 0.79 Medications Administered Current Inpatient Medications Acetaminophen (Acetaminophen 325 Mg Tab) 650 mg PO Q4H PRN PRN Reason: Pain or Fever Stop: 01/19/21 19:18 Last Admin: 12/22/20 19:42 Dose: 650 mg Documented by: Ascorbic Acid (Ascorbic Acid 500 Mg Tab) 500 mg PO BID [facility] Stop: 01/19/21 20:59 Last Admin: 12/24/20 08:37 Dose: 500 mg Documented by: Enoxaparin Sodium (Enoxaparin Inj 40 Mg/0.4 Ml Syr) 40 mg SQ HS EN Stop: 01/19/21 20:59 Last Admin: 12/23/20 20:45 Dose: 40 mg Documented by: Dexamethasone 6 mg/ Syringe 1.5 mls @ 1 mls/min IV DAILY [facility] Stop: 01/20/21 08:59 Last Admin: 12/24/20 08:38 Dose: 1 mls/min Documented by: Ondansetron HCl (Ondansetron Inj 2 Mg/Ml 2 Ml Vial) 4 mg IV Q6H PRN PRN Reason: Nausea Stop: 01/19/21 19:18 Polyethylene Glycol (Polyethylene (Miralax) 17 Gm Pack) 17 gm PO DAILY PRN PRN Reason: Constipation Stop: 01/19/21 19:18 Promethazine HCl (Promethazine Hcl 25 Mg Tab) 25 mg PO Q6H PRN PRN Reason: Nausea And Vomiting Stop: 01/19/21 19:34 Sodium Chloride (Sodium Chloride 0.65% Na Soln 45 Ml ([place])) 0 sprays NA QID PRN PRN Reason: Dryness Stop: 01/23/21 11:27 Vitamin D (Cholecalciferol 1,000 Units 25 Mcg Tab) 1,000 units PO [facility] Stop: 01/20/21 08:59 Last Admin: 12/24/20 08:37 Dose: 1,000 units Documented by: Zinc Sulfate (Zinc Sulfate 220 Mg Capsule) 220 mg PO [facility] Stop: 01/20/21 08:59 Last Admin: 12/24/20 08:37 Dose: 220 mg Documented by:
[2020-12-24] MEDS: ENOXAPARIN INJ 40 MG/0.4 ML SYR SQ SCH (20:07)
[2020-12-25 07:20] LABS: Basophils # (auto) 0.01 K/uL (0-0.2); Basophils % (auto) 0.1 %; Eosinophils # (auto) 0.16 K/uL (0-0.5); Eosinophils % (auto) 1.2 %; Hematocrit (blood only) 44.7 % (42-52); Hemoglobin 15.2 g/dL (14.0-18.0); Immature Granulocytes # (auto) 0.07 K/uL (0.00-0.02); Immature Granulocytes % (auto) 0.5 %; Lymphocytes # (auto) 0.83 K/uL (1.2-3.4); Lymphocytes % (auto) 6.4 %; Mean Corpuscular Hemoglobin 32.1 pg (25-34); Mean Corpuscular Volume 94.5 fL (80-100); Mean Platelet Volume 10.4 fL (7.4-10.4); Monocytes # (auto) 0.72 K/uL (0.11-0.59); Monocytes % (auto) 5.6 %; Neutrophils % (auto) 86.2 %; Platelet Count 363 K/uL (130-400); RDW Coefficient of Variation 13.5 % (11.5-14.5); RDW Standard Deviation 46.8 fL (36.4-46.3); Red Blood Count 4.73 M/uL (4.7-6.1); White Blood Count 12.89 K/uL (4.8-10.8)
[2020-12-25 08:08] LABS: BUN Creatinine Ratio 30.9 (10-20); C Reactive Protein 7.64 mg/dl (0-0.29); Calcium 9.2 mg/dl (8.5-10.1); Creatinine Clr Calc Pharmacy 93.3 ml/min; Est GFR (African American) 100.5 ml/min; Est GFR (Non-African American) 86.7 ml/min; Potassium 4.1 mmol/L (3.5-5.1)
[2020-12-25 08:09] LABS: Phosphorus 3.4 mg/dl (2.5-4.9)
[2020-12-25] MEDS: ASCORBIC ACID 500 MG TAB PO SCH ×2 (08:25→20:36)
[2020-12-25] MEDS: ZINC SULFATE 220 MG CAPSULE PO SCH (08:25)
[2020-12-25] MEDS: dexAMETHasone 6 MG in SYRINGE 0 ML IV SCH (08:25)
[2020-12-25] MEDS: CHOLECALCIFEROL 1,000 UNITS 25 MCG TAB PO SCH (08:25)
--- NOTE | 2020-12-25 15:05 | Hospitalist Progress Note ---
Date of Service December 25, 2020 Assessment & Plan (1) Acute respiratory failure: Plan: Not being vaccinated for COVID-19 Approx 12-13 days of symptoms at this point-no remdesivir offered. Pt questioned me about hydroxychloroquine and we discussed why this is inappropriate. He denied using this or other methods of treating this current pneumonia. He reports taking vitamins at home. He was taking prednisone at home but not eating much and ultimately needs hi flow oxygen support at this time. Cont to provide hi flow support and encourage to prone as often as possible. Cont decadron daily. Clinically not any better and has been requiring high flow nasal cannula oxygen to maintain saturation CRP has been down to 2.72 from 3.50 on admission Has been getting Lasix intravenously on a day-to-day basis Condition has not improved and is still requiring very high flow oxygen Not being any better and the is being informed daily May need intubation for continued care-we will discuss with pulmonary tomorrow Condition has been deteriorating and discussed with him about possible intubation to continue care but he disagreed He does not need any artificial ventilation We will continue current management (2) Pneumonia due to COVID-19 virus: Plan: Cont plan as above. Condition has not been improving Condition has been deteriorating (3) Appetite loss: Plan: 2/2 viral illness. Regular unrestricted diet ordered. Monitor PO intake as this has been poor at home. (4) DVT prophylaxis: Plan: Lovenox Full Code Dispo-to PCU. We will discuss with the significant other and let her know about the decision of no ventilator Admission and Anticipated Discharge Date Admission Date: December 20, 2020 Subjective 12/21/2020 The patient was seen and examined in telemetry unit and in the Covid room He has been stable but requiring maximum high flow nasal cannula oxygen to maintain saturation Has cough but denies any pain 12/22/2020 The patient was seen and examined in telemetry unit and in the Covid room He has been feeling better but is still requiring 50 L of oxygen with 0.9 FiO2 to maintain saturation Denies any significant symptoms at rest 12/23/2020 The patient was seen and examined in telemetry unit in the Covid room He has been feeling better but is still requiring very high flow oxygen to maintain saturation So in other words he has not improved Remains weak and lethargic 12/24/2020 The patient was seen and examined in telemetry unit and in the Covid room His condition has not improved in any way Still requiring up to 60 L of oxygen with 100% FiO2 to maintain saturation 12/25/2020 The patient was seen and examined in telemetry unit and in the Covid room He has not been doing well Still requiring 60 L of oxygen to maintain saturation Remains very weak and lethargic Review of Systems Review of Systems: All systems reviewed and are unremarkable except as noted below Respiratory: Moderate shortness of breath at rest Physical Exam Physical Exam: Lying in bed with moderate shortness of breath Constitutional: + acute distress (Due to shortness of breath), + ill appearing and average body habitus Eyes: PERRL, conjunctivae normal, anicteric sclerae ENMT: external ear and nose normal, oropharynx normal Neck: trachea midline, no thyromegaly Respiratory: + respiratory distress, + labored breathing and + cough Auscultation: + diminished lung sounds and + crackles (At the bases) Cardiovascular: Rate/Rhythm: regular rate and regular rhythm; not tachycardic Heart Sounds: normal S1 and normal S2; no murmur Extremities: + edema (Trace edema bilaterally) Gastrointestinal (Abdomen): Inspection/Auscultation: normal bowel sounds; abdomen not distended Percussion/Palpation: abdomen soft; abdomen nontender Musculoskeletal: Extremely weak and lethargic but no acute arthritis in any joint Psychiatric: A+Ox3, euthymic affect Lymphatic: no cervical or axillary lymphadenopathy Results & Data Results & Data ([facility]) Vital Signs (Past 12 Hours) Vital Signs Temp Pulse Pulse Pulse Resp BP Pulse Ox 12/25/20 14:19 97 H 23 93 12/25/20 11:13 36.6 C 83 22 115/77 94 12/25/20 11:10 80 22 90 12/25/20 09:00 91 H 12/25/20 07:48 71 24 90 12/25/20 07:25 71 22 91 12/25/20 07:00 36.6 C 109 H 22 115/68 92 12/25/20 03:47 36.4 C L 88 23 117/77 91 Laboratory Results Short CBC 12/25/20 Range/Units 06:07 WBC 12.89 H (4.8-10.8) K/uL Hgb 15.2 (14.0-18.0) g/dL Hct 44.7 (42-52) % Plt Count 363 (130-400) K/uL BMP 12/25/20 06:07 Sodium 139 Potassium 4.1 Chloride 106 Carbon Dioxide 24 BUN 26 H Creatinine 0.83 Glucose 95 Calcium 9.2 Medications Administered Current Inpatient Medications Acetaminophen (Acetaminophen 325 Mg Tab) 650 mg PO Q4H PRN PRN Reason: Pain or Fever Stop: 01/19/21 19:18 Last Admin: 12/22/20 19:42 Dose: 650 mg Documented by: Ascorbic Acid (Ascorbic Acid 500 Mg Tab) 500 mg PO BID EN Stop: 01/19/21 20:59 Last Admin: 12/25/20 08:25 Dose: 500 mg Documented by: Enoxaparin Sodium (Enoxaparin Inj 40 Mg/0.4 Ml Syr) 40 mg SQ HS EN Stop: 01/19/21 20:59 Last Admin: 12/24/20 20:07 Dose: 40 mg Documented by: Dexamethasone 6 mg/ Syringe 1.5 mls @ 1 mls/min IV DAILY EN Stop: 01/20/21 08:59 Last Admin: 12/25/20 08:25 Dose: 1 mls/min Documented by: Ondansetron HCl (Ondansetron Inj 2 Mg/Ml 2 Ml Vial) 4 mg IV Q6H PRN PRN Reason: Nausea Stop: 01/19/21 19:18 Polyethylene Glycol (Polyethylene (Miralax) 17 Gm Pack) 17 gm PO DAILY PRN PRN Reason: Constipation Stop: 01/19/21 19:18 Promethazine HCl (Promethazine Hcl 25 Mg Tab) 25 mg PO Q6H PRN PRN Reason: Nausea And Vomiting Stop: 01/19/21 19:34 Sodium Chloride (Sodium Chloride 0.65% Na Soln 45 Ml ([place])) 0 sprays NA QID PRN PRN Reason: Dryness Stop: 01/23/21 11:27 Vitamin D (Cholecalciferol 1,000 Units 25 Mcg Tab) 1,000 units PO [facility] Stop: 01/20/21 08:59 Last Admin: 12/25/20 08:25 Dose: 1,000 units Documented by: Zinc Sulfate (Zinc Sulfate 220 Mg Capsule) 220 mg PO [facility]AM EN Stop: 01/20/21 08:59 Last Admin: 12/25/20 08:25 Dose: 220 mg Documented by:
[2020-12-25] MEDS: ENOXAPARIN INJ 40 MG/0.4 ML SYR SQ SCH (20:36)
[2020-12-26] MEDS: dexAMETHasone 6 MG in SYRINGE 0 ML IV SCH (09:57)
[2020-12-26] MEDS: ZINC SULFATE 220 MG CAPSULE PO SCH (09:58)
[2020-12-26] MEDS: ASCORBIC ACID 500 MG TAB PO SCH ×2 (09:58→20:06)
[2020-12-26] MEDS: CHOLECALCIFEROL 1,000 UNITS 25 MCG TAB PO SCH (09:58)
--- NOTE | 2020-12-26 15:19 | Hospitalist Progress Note ---
Date of Service December 26, 2020 Assessment & Plan (1) Acute respiratory failure: Plan: Not being vaccinated for COVID-19 Approx 12-13 days of symptoms at this point-no remdesivir offered. Pt questioned me about hydroxychloroquine and we discussed why this is inappropriate. He denied using this or other methods of treating this current pneumonia. He reports taking vitamins at home. He was taking prednisone at home but not eating much and ultimately needs hi flow oxygen support at this time. Cont to provide hi flow support and encourage to prone as often as possible. Cont decadron daily. Clinically not any better and has been requiring high flow nasal cannula oxygen to maintain saturation CRP has been down to 2.72 from 3.50 on admission Has been getting Lasix intravenously on a day-to-day basis Condition has not improved and is still requiring very high flow oxygen Not being any better and the is being informed daily May need intubation for continued care-we will discuss with pulmonary tomorrow Condition has been deteriorating and discussed with him about possible intubation to continue care but he disagreed He does not need any artificial ventilation Condition has been changed and still requiring very high flow oxygen to maintain saturation. Cumulative balance is -245 6 mL (2) Pneumonia due to COVID-19 virus: Plan: Cont plan as above. Condition has not been improving Condition has been deteriorating (3) Appetite loss: Plan: 2/2 viral illness. Regular unrestricted diet ordered. Monitor PO intake as this has been poor at home. (4) DVT prophylaxis: Plan: Lovenox Full Code Dispo-to PCU. We will discuss with the significant other and let her know about the decision of no ventilator Admission and Anticipated Discharge Date Admission Date: December 20, 2020 Subjective 12/21/2020 The patient was seen and examined in telemetry unit and in the Covid room He has been stable but requiring maximum high flow nasal cannula oxygen to maintain saturation Has cough but denies any pain 12/22/2020 The patient was seen and examined in telemetry unit and in the Covid room He has been feeling better but is still requiring 50 L of oxygen with 0.9 FiO2 to maintain saturation Denies any significant symptoms at rest 12/23/2020 The patient was seen and examined in telemetry unit in the Covid room He has been feeling better but is still requiring very high flow oxygen to maintain saturation So in other words he has not improved Remains weak and lethargic 12/24/2020 The patient was seen and examined in telemetry unit and in the Covid room His condition has not improved in any way Still requiring up to 60 L of oxygen with 100% FiO2 to maintain saturation 12/25/2020 The patient was seen and examined in telemetry unit and in the Covid room He has not been doing well Still requiring 60 L of oxygen to maintain saturation Remains very weak and lethargic 12/26/2020 The patient was seen and examined in telemetry unit and in the Covid room He has not been feeling any better and is still requiring 50 to 60 L of 95% oxygen to maintain saturation Discussed about CODE STATUS and he mentioned he does not want to be intubated Remains very lethargic Review of Systems Review of Systems: All systems reviewed and are unremarkable except as noted below Respiratory: Moderate shortness of breath at rest Physical Exam Physical Exam: Lying in bed with moderate shortness of breath Constitutional: + acute distress (Due to shortness of breath), + ill appearing and average body habitus Eyes: PERRL, conjunctivae normal, anicteric sclerae ENMT: external ear and nose normal, oropharynx normal Neck: trachea midline, no thyromegaly Respiratory: + respiratory distress, + labored breathing and + cough Auscultation: + diminished lung sounds and + crackles (At the bases) Cardiovascular: Rate/Rhythm: regular rate and regular rhythm; not tachycardic Heart Sounds: normal S1 and normal S2; no murmur Extremities: + edema (Trace edema bilaterally) Gastrointestinal (Abdomen): Inspection/Auscultation: normal bowel sounds; abdomen not distended Percussion/Palpation: abdomen soft; abdomen nontender Musculoskeletal: No acute arthritis in any joint Neurologic: Alert, awake. Generally very weak and lethargic. Moving all the limbs equally Psychiatric: A+Ox3, euthymic affect Lymphatic: no cervical or axillary lymphadenopathy Results & Data Results & Data ([facility]) Vital Signs (Past 12 Hours) Vital Signs Temp Pulse Pulse Pulse Resp BP Pulse Ox 12/26/20 14:42 90 22 94 12/26/20 11:27 36.6 C 90 20 116/75 94 12/26/20 10:45 96 H 23 91 12/26/20 08:00 36.6 C 102 H 89 20 131/89 94 12/26/20 06:11 102 H 30 H 93 12/26/20 04:39 92 H 23 93 Medications Administered Current Inpatient Medications Acetaminophen (Acetaminophen 325 Mg Tab) 650 mg PO Q4H PRN PRN Reason: Pain or Fever Stop: 01/19/21 19:18 Last Admin: 12/22/20 19:42 Dose: 650 mg Documented by: Ascorbic Acid (Ascorbic Acid 500 Mg Tab) 500 mg PO BID [facility] Stop: 01/19/21 20:59 Last Admin: 12/26/20 09:58 Dose: 500 mg Documented by: Enoxaparin Sodium (Enoxaparin Inj 40 Mg/0.4 Ml Syr) 40 mg SQ HS [facility] Stop: 01/19/21 20:59 Last Admin: 12/25/20 20:36 Dose: 40 mg Documented by: Dexamethasone 6 mg/ Syringe 1.5 mls @ 1 mls/min IV DAILY [facility] Stop: 01/20/21 08:59 Last Admin: 12/26/20 09:57 Dose: 1 mls/min Documented by: Ondansetron HCl (Ondansetron Inj 2 Mg/Ml 2 Ml Vial) 4 mg IV Q6H PRN PRN Reason: Nausea Stop: 01/19/21 19:18 Polyethylene Glycol (Polyethylene (Miralax) 17 Gm Pack) 17 gm PO DAILY PRN PRN Reason: Constipation Stop: 01/19/21 19:18 Promethazine HCl (Promethazine Hcl 25 Mg Tab) 25 mg PO Q6H PRN PRN Reason: Nausea And Vomiting Stop: 01/19/21 19:34 Sodium Chloride (Sodium Chloride 0.65% Na Soln 45 Ml ([place])) 0 sprays NA QID PRN PRN Reason: Dryness Stop: 01/23/21 11:27 Vitamin D (Cholecalciferol 1,000 Units 25 Mcg Tab) 1,000 units PO QAM [facility] Stop: 01/20/21 08:59 Last Admin: 12/26/20 09:58 Dose: 1,000 units Documented by: Zinc Sulfate (Zinc Sulfate 220 Mg Capsule) 220 mg PO QAM [facility] Stop: 01/20/21 08:59 Last Admin: 12/26/20 09:58 Dose: 220 mg Documented by:
[2020-12-26] MEDS ORDERED: FUROSEMIDE 40 MG/4 ML VIAL IV ONE (15:29)
[2020-12-26] MEDS: ENOXAPARIN INJ 40 MG/0.4 ML SYR SQ SCH (20:06)
[2020-12-27 06:33] LABS: Basophils # (auto) 0.02 K/uL (0-0.2); Basophils % (auto) 0.1 %; Eosinophils # (auto) 0.18 K/uL (0-0.5); Eosinophils % (auto) 1.3 %; Hematocrit (blood only) 43.6 % (42-52); Hemoglobin 14.8 g/dL (14.0-18.0); Immature Granulocytes # (auto) 0.07 K/uL (0.00-0.02); Immature Granulocytes % (auto) 0.5 %; Lymphocytes # (auto) 1.11 K/uL (1.2-3.4); Mean Corpuscular Hgb Conc 33.9 g/dL (32-36); Mean Corpuscular Volume 94.4 fL (80-100); Mean Platelet Volume 10.2 fL (7.4-10.4); Monocytes # (auto) 0.82 K/uL (0.11-0.59); Monocytes % (auto) 5.9 %; Neutrophils % (auto) 84.2 %; Platelet Count 359 K/uL (130-400); RDW Coefficient of Variation 13.4 % (11.5-14.5); RDW Standard Deviation 46.1 fL (36.4-46.3); Red Blood Count 4.62 M/uL (4.7-6.1)
[2020-12-27 07:02] LABS: BUN Creatinine Ratio 37.8 (10-20); Calcium 9.1 mg/dl (8.5-10.1); Creatinine Clr Calc Pharmacy 101.9 ml/min; Est GFR (African American) 104.2 ml/min; Est GFR (Non-African American) 89.9 ml/min; Magnesium 2.2 mg/dl (1.8-2.4); Potassium 3.9 mmol/L (3.5-5.1)
[2020-12-27] MEDS: ZINC SULFATE 220 MG CAPSULE PO SCH (08:47)
[2020-12-27] MEDS: CHOLECALCIFEROL 1,000 UNITS 25 MCG TAB PO SCH (08:47)
[2020-12-27] MEDS: ASCORBIC ACID 500 MG TAB PO SCH ×2 (08:48→19:58)
[2020-12-27] MEDS: dexAMETHasone 6 MG in SYRINGE 0 ML IV SCH (08:58)
--- NOTE | 2020-12-27 16:14 | Hospitalist Progress Note ---
Date of Service December 27, 2020 Assessment & Plan (1) Acute respiratory failure: Plan: Not being vaccinated for COVID-19 Approx 12-13 days of symptoms at this point-no remdesivir offered. Pt questioned me about hydroxychloroquine and we discussed why this is inappropriate. He denied using this or other methods of treating this current pneumonia. He reports taking vitamins at home. He was taking prednisone at home but not eating much and ultimately needs hi flow oxygen support at this time. Cont to provide hi flow support and encourage to prone as often as possible. Cont decadron daily. Clinically not any better and has been requiring high flow nasal cannula oxygen to maintain saturation CRP has been down to 2.72 from 3.50 on admission Has been getting Lasix intravenously on a day-to-day basis Condition has not improved and is still requiring very high flow oxygen Not being any better and the is being informed daily May need intubation for continued care-we will discuss with pulmonary tomorrow Condition has been deteriorating and discussed with him about possible intubation to continue care but he disagreed He feels better but still requiring high flow oxygen to maintain saturation He has been in cumulative negative balance so far and will not give any Lasix due to low blood pressure (2) Pneumonia due to COVID-19 virus: Plan: Cont plan as above. Condition has not been improving Condition has been deteriorating His questions were answered appropriately (3) Appetite loss: Plan: 2/2 viral illness. Regular unrestricted diet ordered. Monitor PO intake as this has been poor at home. (4) DVT prophylaxis: Plan: Lovenox Full Code Dispo-to PCU. We will discuss with the significant other and let her know about the decision of no ventilator Discussed with his in detail who wanted to have hydroxychloroquine for her which was denied Admission and Anticipated Discharge Date Admission Date: December 20, 2020 Subjective 12/21/2020 The patient was seen and examined in telemetry unit and in the Covid room He has been stable but requiring maximum high flow nasal cannula oxygen to maintain saturation Has cough but denies any pain 12/22/2020 The patient was seen and examined in telemetry unit and in the Covid room He has been feeling better but is still requiring 50 L of oxygen with 0.9 FiO2 to maintain saturation Denies any significant symptoms at rest 12/23/2020 The patient was seen and examined in telemetry unit in the Covid room He has been feeling better but is still requiring very high flow oxygen to maintain saturation So in other words he has not improved Remains weak and lethargic 12/24/2020 The patient was seen and examined in telemetry unit and in the Covid room His condition has not improved in any way Still requiring up to 60 L of oxygen with 100% FiO2 to maintain saturation 12/25/2020 The patient was seen and examined in telemetry unit and in the Covid room He has not been doing well Still requiring 60 L of oxygen to maintain saturation Remains very weak and lethargic 12/26/2020 The patient was seen and examined in telemetry unit and in the Covid room He has not been feeling any better and is still requiring 50 to 60 L of 95% oxygen to maintain saturation Discussed about CODE STATUS and he mentioned he does not want to be intubated Remains very lethargic 12/27/2020 The patient was seen and examined in telemetry unit and in the Covid room He feels better but is still requiring very high flow nasal cannula oxygen to maintain saturation He remains weak and lethargic His cough seems to be controlled Review of Systems Review of Systems: All systems reviewed and are unremarkable except as noted below Respiratory: Moderate shortness of breath at rest Physical Exam Physical Exam: Lying in bed with moderate shortness of breath Constitutional: + acute distress (Due to shortness of breath), + ill appearing and average body habitus Eyes: PERRL, conjunctivae normal, anicteric sclerae ENMT: external ear and nose normal, oropharynx normal Neck: trachea midline, no thyromegaly Respiratory: + respiratory distress, + labored breathing and + cough Auscultation: + diminished lung sounds and + crackles (At the bases) Cardiovascular: Rate/Rhythm: regular rate and regular rhythm; not tachycardic Heart Sounds: normal S1 and normal S2; no murmur Extremities: + edema (Trace edema bilaterally) Gastrointestinal (Abdomen): Inspection/Auscultation: normal bowel sounds; abdomen not distended Percussion/Palpation: abdomen soft; abdomen nontender Musculoskeletal: No acute arthritis in any joint Neurologic: Alert, awake and oriented x3. Generally very weak and lethargic. No focal neuro deficit Psychiatric: A+Ox3, euthymic affect Lymphatic: no cervical or axillary lymphadenopathy Results & Data Results & Data ([facility]) Vital Signs (Past 12 Hours) Vital Signs Temp Pulse Pulse Resp BP Pulse Ox 12/27/20 15:03 37.1 C 89 20 97/73 L 98 12/27/20 11:16 103 H 24 91 12/27/20 08:00 99 H 12/27/20 07:08 36.3 C L 86 20 106/78 96 12/27/20 06:15 116 H 23 88 L Laboratory Results Short CBC 12/27/20 Range/Units 06:01 WBC 13.90 H (4.8-10.8) K/uL Hgb 14.8 (14.0-18.0) g/dL Hct 43.6 (42-52) % Plt Count 359 (130-400) K/uL BMP 12/27/20 06:01 Sodium 138 Potassium 3.9 Chloride 105 Carbon Dioxide 27 BUN 29 H Creatinine 0.76 Glucose 95 Calcium 9.1 Medications Administered Current Inpatient Medications Acetaminophen (Acetaminophen 325 Mg Tab) 650 mg PO Q4H PRN PRN Reason: Pain or Fever Stop: 01/19/21 19:18 Last Admin: 12/22/20 19:42 Dose: 650 mg Documented by: Ascorbic Acid (Ascorbic Acid 500 Mg Tab) 500 mg PO BID EN Stop: 01/19/21 20:59 Last Admin: 12/27/20 08:48 Dose: 500 mg Documented by: Enoxaparin Sodium (Enoxaparin Inj 40 Mg/0.4 Ml Syr) 40 mg SQ HS EN Stop: 01/19/21 20:59 Last Admin: 12/26/20 20:06 Dose: 40 mg Documented by: Dexamethasone 6 mg/ Syringe 1.5 mls @ 1 mls/min IV DAILY EN Stop: 01/20/21 08:59 Last Admin: 12/27/20 08:58 Dose: 1 mls/min Documented by: Ondansetron HCl (Ondansetron Inj 2 Mg/Ml 2 Ml Vial) 4 mg IV Q6H PRN PRN Reason: Nausea Stop: 01/19/21 19:18 Polyethylene Glycol (Polyethylene (Miralax) 17 Gm Pack) 17 gm PO DAILY PRN PRN Reason: Constipation Stop: 01/19/21 19:18 Promethazine HCl (Promethazine Hcl 25 Mg Tab) 25 mg PO Q6H PRN PRN Reason: Nausea And Vomiting Stop: 01/19/21 19:34 Sodium Chloride (Sodium Chloride 0.65% Na Soln 45 Ml ([place])) 0 sprays NA QID PRN PRN Reason: Dryness Stop: 01/23/21 11:27 Vitamin D (Cholecalciferol 1,000 Units 25 Mcg Tab) 1,000 units PO [facility] Stop: 01/20/21 08:59 Last Admin: 12/27/20 08:47 Dose: 1,000 units Documented by: Zinc Sulfate (Zinc Sulfate 220 Mg Capsule) 220 mg PO [facility] Stop: 01/20/21 08:59 Last Admin: 12/27/20 08:47 Dose: 220 mg Documented by:
[2020-12-27] MEDS: ENOXAPARIN INJ 40 MG/0.4 ML SYR SQ SCH (19:57)
[2020-12-28] MEDS: ASCORBIC ACID 500 MG TAB PO SCH ×2 (08:04→20:52)
[2020-12-28] MEDS: ZINC SULFATE 220 MG CAPSULE PO SCH (08:05)
[2020-12-28] MEDS: CHOLECALCIFEROL 1,000 UNITS 25 MCG TAB PO SCH (08:05)
[2020-12-28] MEDS: dexAMETHasone 6 MG in SYRINGE 0 ML IV SCH (08:05)
[2020-12-28] MEDS ORDERED: FUROSEMIDE INJ 20 MG/2 ML VIAL IV ONE (14:52)
--- NOTE | 2020-12-28 14:53 | Hospitalist Progress Note ---
Date of Service December 28, 2020 Assessment & Plan (1) Acute respiratory failure: Plan: Not being vaccinated for COVID-19 Approx 12-13 days of symptoms at this point-no remdesivir offered. He was taking prednisone at home but not eating much and ultimately needs hi flow oxygen support at this time. Cont to provide hi flow support and encourage to prone as often as possible. Cont decadron daily. Currently remains on the high flow nasal cannula. We will give IV Lasix 20 mg now. (2) Pneumonia due to COVID-19 virus: Plan: Management as above. (3) Appetite loss: Plan: 2/2 viral illness. Remains on regular diet. Monitor PO intake as this has been poor at home. (4) DVT prophylaxis: Plan: Lovenox Full Code Dispo-to PCU. Admission and Anticipated Discharge Date Admission Date: December 20, 2020 Subjective Patient is awake and alert. Reports he is doing okay but shortness of breath persist. Does have minimal nonproductive cough. Denies any chest pain or abdominal pain. Has any nausea or vomiting. Appetite is okay. Review of Systems Review of Systems: All systems reviewed & are unremarkable except as noted in HPI & below Physical Exam Physical Exam: General: A&Ox3 HENT: NCAT, MMM, EOMI Eyes: PERRLA Neck: Supple, normal range of motion CVS: normal rate and rhythm Resp: b/l coarse breath sounds Abdomen: Soft, ND/NT, +BS Extremities: No c/c/e Neuro: face symmetric, no gross focal deficits appreciated Skin: warm and dry MSK: no joint swelling/erythema Results & Data Results & Data ([facility]) Vital Signs (Past 12 Hours) Vital Signs Temp Pulse Pulse Pulse Resp BP Pulse Ox 12/28/20 14:44 36.5 C 99 H 20 109/80 89 L 12/28/20 10:59 36.5 C 88 21 96/74 L 91 12/28/20 10:58 90 22 92 12/28/20 08:05 93/68 L 12/28/20 08:00 83 12/28/20 07:37 37.5 C 80 18 84/52 L 94 12/28/20 07:03 75 18 96 12/28/20 03:34 97 12/28/20 03:12 37.0 C 85 17 90/65 L 92
[2020-12-28] MEDS: ENOXAPARIN INJ 40 MG/0.4 ML SYR SQ SCH (20:52)
[2020-12-28] MEDS: ACETAMINOPHEN 325 MG TAB PO PRN (20:52)
[2020-12-29 07:12] LABS: Basophils # (auto) 0.02 K/uL (0-0.2); Basophils % (auto) 0.2 %; Eosinophils # (auto) 0.19 K/uL (0-0.5); Eosinophils % (auto) 1.5 %; Hematocrit (blood only) 43.7 % (42-52); Hemoglobin 14.7 g/dL (14.0-18.0); Immature Granulocytes # (auto) 0.06 K/uL (0.00-0.02); Immature Granulocytes % (auto) 0.5 %; Lymphocytes # (auto) 1.51 K/uL (1.2-3.4); Lymphocytes % (auto) 11.6 %; Mean Corpuscular Hemoglobin 32.1 pg (25-34); Mean Corpuscular Hgb Conc 33.6 g/dL (32-36); Mean Corpuscular Volume 95.4 fL (80-100); Mean Platelet Volume 10.4 fL (7.4-10.4); Monocytes # (auto) 0.85 K/uL (0.11-0.59); Monocytes % (auto) 6.5 %; Neutrophils % (auto) 79.7 %; Platelet Count 347 K/uL (130-400); RDW Coefficient of Variation 13.3 % (11.5-14.5); RDW Standard Deviation 46.4 fL (36.4-46.3); Red Blood Count 4.58 M/uL (4.7-6.1); White Blood Count 13.03 K/uL (4.8-10.8)
[2020-12-29 07:45] LABS: BUN Creatinine Ratio 35.4 (10-20); Creatinine Clr Calc Pharmacy 99.3 ml/min; Est GFR (African American) 103.1 ml/min; Est GFR (Non-African American) 88.9 ml/min; Potassium 3.8 mmol/L (3.5-5.1)
[2020-12-29] MEDS: dexAMETHasone 6 MG in SYRINGE 0 ML IV SCH (08:31)
[2020-12-29] MEDS: CHOLECALCIFEROL 1,000 UNITS 25 MCG TAB PO SCH (08:32)
[2020-12-29] MEDS: ASCORBIC ACID 500 MG TAB PO SCH ×2 (08:32→21:15)
[2020-12-29] MEDS: ZINC SULFATE 220 MG CAPSULE PO SCH (08:32)
[2020-12-29] MEDS ORDERED: DOCUSATE SODIUM 100 MG CAP PO ONE (11:53)
[2020-12-29] MEDS ORDERED: bisacodyL 10 MG SUPP PR PRN (11:53)
--- NOTE | 2020-12-29 11:54 | Hospitalist Progress Note ---
Date of Service December 29, 2020 Assessment & Plan (1) Acute respiratory failure: Plan: Not being vaccinated for COVID-19 Approx 12-13 days of symptoms at this point-no remdesivir offered. He was taking prednisone at home but not eating much and ultimately needs hi flow oxygen support at this time. Cont to provide hi flow support and encourage to prone as often as possible. Cont decadron daily. Currently remains on the high flow nasal cannula. Adequate urine output. Negative balance. Work with therapy once he is more stable. (2) Pneumonia due to COVID-19 virus: Plan: Management as above. (3) Appetite loss: Plan: 2/2 viral illness. Remains on regular diet. Monitor PO intake as this has been poor at home. Remains on Senna/Colace/MiraLAX and lsuppository as needed for constipation. (4) DVT prophylaxis: Plan: Lovenox Full Code Dispo-to PCU. Admission and Anticipated Discharge Date Admission Date: December 20, 2020 Subjective Awake, alert and oriented. Remains on the high flow nasal cannula. Desaturated into the seventies this morning when attempting to get out of the bed. Denies any shortness of breath or any worsening cough. Appetite is improving. Review of Systems Review of Systems: All systems reviewed & are unremarkable except as noted in HPI & below Physical Exam Physical Exam: General: A&Ox3 HENT: NCAT, MMM, EOMI Eyes: PERRLA Neck: Supple, normal range of motion CVS: normal rate and rhythm Resp: b/l coarse breath sounds Abdomen: Soft, ND/NT Extremities: No c/c/e Neuro: face symmetric, no gross focal deficits appreciated Skin: warm and dry MSK: no joint swelling/erythema Results & Data Results & Data ([facility]) Vital Signs (Past 12 Hours) Vital Signs Temp Pulse Pulse Pulse Resp BP Pulse Ox 12/29/20 11:14 36.7 C 108 H 31 H 103/73 90 12/29/20 10:53 116 H 24 91 12/29/20 08:00 81 12/29/20 07:19 100 H 22 91 12/29/20 07:15 36.8 C 105 H 19 108/75 92 12/29/20 03:40 37.0 C 74 16 105/68 92 12/29/20 02:02 66 16 97 12/28/20 23:58 85
[2020-12-29] MEDS: SENNA 8.6 MG TAB PO SCH (13:41)
[2020-12-29] MEDS: ACETAMINOPHEN 325 MG TAB PO PRN (21:14)
[2020-12-29] MEDS: ENOXAPARIN INJ 40 MG/0.4 ML SYR SQ SCH (21:15)
[2020-12-30 06:56] LABS: Creatinine Clr Calc Pharmacy 113.9 ml/min; Est GFR (Non-African American) 94.1 ml/min
[2020-12-30] MEDS: ASCORBIC ACID 500 MG TAB PO SCH ×2 (08:11→20:43)
[2020-12-30] MEDS: ZINC SULFATE 220 MG CAPSULE PO SCH (08:12)
[2020-12-30] MEDS: CHOLECALCIFEROL 1,000 UNITS 25 MCG TAB PO SCH (08:12)
[2020-12-30] MEDS: SENNA 8.6 MG TAB PO SCH (08:12)
[2020-12-30] MEDS: dexAMETHasone 6 MG in SYRINGE 0 ML IV SCH (09:48)
--- NOTE | 2020-12-30 14:26 | Hospitalist Progress Note ---
Date of Service December 30, 2020 Assessment & Plan (1) Acute respiratory failure: Plan: 2/2 covid pneumonia. Unvaccinated patient with prolonged symptoms so no antiviral therapy offered. He has completed ten days of decadron therapy at this time. Will hold for now. Cont hi flow oxygen support at this time. (2) Pneumonia due to COVID-19 virus: Plan: Plan as above. (3) Appetite loss: Plan: 2/2 viral illness. This is improved per his report. Remains on regular diet. Monitor PO intake as this has been poor at home. Remains on Senna/Colace/MiraLAX and suppository as needed for constipation. Ambulate with assistance as tolerated. (4) DVT prophylaxis: Plan: Lovenox Full Code Dispo-cont PCU monitoring. I contacted his by phone for an update. She was asking about giving him hydroxychloroquine and we went through some of the side effects and the lack of evidence on this. Amena Smith [facility] and Anticipated Discharge Date Admission Date: December 20, 2020 Subjective 75 yo M admitted with acute respiratory failure 2/2 covid pneumonia. He remains on the hi flow nasal canula Denies worsening of SOB PRoning every night Reports unsuccessful attempt 3 days ago to get out of bed to chair. Constipated, recent suppository. No BM for 4 days per his report. Tolerating PO and no fevers, or chills Overall he feels he is improving. Review of Systems Review of Systems: All systems were reviewed and negative except as indicated in subjective above. Physical Exam Physical Exam: CONSTITUTIONAL: WNWD, vitals as above, generally well- appearing, NAD EYES: normal conjunctivae, no scleral icterus ENT: external ear and nose normal, oropharynx clear, MMM NECK: trachea midline RESPIRATORY: course rhonchi at bases bilaterally, no wheezing or rales, no increased respiratory effort. CARDIOVASCULAR: regular rate and rhythm, S1 and 2 heard without murmurs, gallops or rubs, no JVD, no peripheral edema CHEST: inspection of chest was normal GASTROINTESTINAL: soft, nontender, ND MUSCULOSKELETAL: generalized weakness, head is normocephalic and atraumatic, no gross focal deficits. SKIN: warm and dry NEUROLOGIC: No facial palsy, no dysarthria. CN 2-12 grossly intact, no sensory deficit, normal cognition, normal speech, no tremor PSYCHIATRIC: alert cooperative and oriented to person, place and time. Results & Data Results & Data ([facility]) Vital Signs (Past 12 Hours) Vital Signs Temp Pulse Pulse Resp BP Pulse Ox 12/30/20 13:53 95 H 26 H 91 12/30/20 11:31 36.7 C 88 16 126/86 92 12/30/20 11:04 97 H 16 92 12/30/20 08:03 36.9 C 92 H 18 122/82 88 L 12/30/20 07:20 91 H 16 91 12/30/20 04:21 105 H 12/30/20 03:55 37.1 C 94 H 16 93/60 L 92 Laboratory Results BMP 12/30/20 05:27 Creatinine 0.68 Medications Administered Current Inpatient Medications Acetaminophen (Acetaminophen 325 Mg Tab) 650 mg PO Q4H PRN PRN Reason: Pain or Fever Stop: 01/19/21 19:18 Last Admin: 12/29/20 21:14 Dose: 650 mg Documented by: Ascorbic Acid (Ascorbic Acid 500 Mg Tab) 500 mg PO BID EN Stop: 01/19/21 20:59 Last Admin: 12/30/20 08:11 Dose: 500 mg Documented by: Bisacodyl (Bisacodyl 10 Mg Supp) 10 mg MA DAILY PRN PRN Reason: Constipation Stop: 01/28/21 11:52 Last Admin: 12/30/20 13:45 Dose: 10 mg Documented by: Enoxaparin Sodium (Enoxaparin Inj 40 Mg/0.4 Ml Syr) 40 mg SQ HS EN Stop: 01/19/21 20:59 Last Admin: 12/29/20 21:15 Dose: 40 mg Documented by: Dexamethasone 6 mg/ Syringe 1.5 mls @ 1 mls/min IV DAILY EN Stop: 01/20/21 08:59 Last Admin: 12/30/20 09:48 Dose: 1 mls/min Documented by: Ondansetron HCl (Ondansetron Inj 2 Mg/Ml 2 Ml Vial) 4 mg IV Q6H PRN PRN Reason: Nausea Stop: 01/19/21 19:18 Polyethylene Glycol (Polyethylene (Miralax) 17 Gm Pack) 17 gm PO DAILY PRN PRN Reason: Constipation Stop: 01/19/21 19:18 Promethazine HCl (Promethazine Hcl 25 Mg Tab) 25 mg PO Q6H PRN PRN Reason: Nausea And Vomiting Stop: 01/19/21 19:34 Sennosides (Senna 8.6 Mg Tab) 8.6 mg PO [facility] Stop: 01/28/21 11:59 Last Admin: 12/30/20 08:12 Dose: 8.6 mg Documented by: Sodium Chloride (Sodium Chloride 0.65% Na Soln 45 Ml ([place])) 0 sprays NA QID PRN PRN Reason: Dryness Stop: 01/23/21 11:27 Vitamin D (Cholecalciferol 1,000 Units 25 Mcg Tab) 1,000 units PO [facility] Stop: 01/20/21 08:59 Last Admin: 12/30/20 08:12 Dose: 1,000 units Documented by: Zinc Sulfate (Zinc Sulfate 220 Mg Capsule) 220 mg PO [facility] Stop: 01/20/21 08:59 Last Admin: 12/30/20 08:12 Dose: 220 mg Documented by:
[2020-12-30] MEDS: ENOXAPARIN INJ 40 MG/0.4 ML SYR SQ SCH (20:42)
[2020-12-31] MEDS: CHOLECALCIFEROL 1,000 UNITS 25 MCG TAB PO SCH (08:37)
[2020-12-31] MEDS: ASCORBIC ACID 500 MG TAB PO SCH ×2 (08:37→20:30)
[2020-12-31] MEDS: ZINC SULFATE 220 MG CAPSULE PO SCH (08:38)
[2020-12-31] MEDS: SENNA 8.6 MG TAB PO SCH (08:38)
--- NOTE | 2020-12-31 11:01 | Hospitalist Progress Note ---
Date of Service December 31, 2020 Assessment & Plan (1) Acute respiratory failure: Plan: 2/2 covid pneumonia. Unvaccinated patient with prolonged symptoms so no antiviral therapy offered. He has completed ten days of decadron therapy at this time. Holding further steroids. Cont hi flow oxygen support at this time. Adding daily Lasix to elp deal with inflammation. Monitor daily lytes, renal function. (2) Pneumonia due to COVID-19 virus: Plan: Plan as above. (3) Appetite loss: Plan: 2/2 viral illness. This is improved per his report. Remains on regular diet. Monitor PO intake as this has been poor at home. Remains on Senna/Colace/MiraLAX and suppository as needed for constipation. Ambulate with assistance as tolerated. (4) Acute urinary retention: Plan: 700cc urinary retention on bladder scan, Wagoner placed. TOV in a few days. (5) Constipation: Plan: resolved overnight (6) DVT prophylaxis: Plan: Lovenox Full Code Dispo-cont PCU monitoring. Amena Smith DO [facility] Hospitalist Admission and Anticipated Discharge Date Admission Date: December 20, 2020 Subjective 75 yo M admitted with acute respiratory failure 2/2 covid pneumonia. He remains on the hi flow nasal canula Denies worsening of SOB Acute urinary retention developed overnight Constipation somewhat improved today Wagoner catheter placed and he feels much better Not coughing or having any fever. Tolerating PO Review of Systems Review of Systems: All systems were reviewed and negative except as indicated in subjective above. Physical Exam Physical Exam: CONSTITUTIONAL: WNWD, vitals as above, generally well- appearing, NAD EYES: normal conjunctivae, no scleral icterus ENT: external ear and nose normal, oropharynx clear, MMM NECK: trachea midline RESPIRATORY: crackles on right lung palumbo, no wheezing or rales, no increased respiratory effort. CARDIOVASCULAR: regular rate and rhythm, S1 and 2 heard without murmurs, gallops or rubs, no JVD, no peripheral edema CHEST: inspection of chest was normal GASTROINTESTINAL: soft, nontender, ND, no guarding. MUSCULOSKELETAL: generalized weakness, head is normocephalic and atraumatic, no gross focal deficits. SKIN: warm and dry NEUROLOGIC: No facial palsy, no dysarthria. CN 2-12 grossly intact, no sensory deficit, normal cognition, normal speech, no tremor PSYCHIATRIC: alert cooperative and oriented to person, place and time. Results & Data Results & Data ([facility]) Vital Signs (Past 12 Hours) Vital Signs Temp Pulse Pulse Resp BP Pulse Ox 12/31/20 08:00 87 12/31/20 07:50 36.6 C 95 H 22 121/77 93 12/31/20 07:21 81 18 91 12/31/20 03:30 86 22 90 12/31/20 03:13 37 C 97 H 14 112/65 12/31/20 01:17 EST 96 H Medications Administered Current Inpatient Medications Acetaminophen (Acetaminophen 325 Mg Tab) 650 mg PO Q4H PRN PRN Reason: Pain or Fever Stop: 01/19/21 19:18 Last Admin: 12/29/20 21:14 Dose: 650 mg Documented by: Ascorbic Acid (Ascorbic Acid 500 Mg Tab) 500 mg PO BID EN Stop: 01/19/21 20:59 Last Admin: 12/31/20 08:37 Dose: 500 mg Documented by: Bisacodyl (Bisacodyl 10 Mg Supp) 10 mg [place] DAILY PRN PRN Reason: Constipation Stop: 01/28/21 11:52 Last Admin: 12/30/20 13:45 Dose: 10 mg Documented by: Enoxaparin Sodium (Enoxaparin Inj 40 Mg/0.4 Ml Syr) 40 mg SQ HS EN Stop: 01/19/21 20:59 Last Admin: 12/30/20 20:42 Dose: 40 mg Documented by: Dexamethasone 6 mg/ Syringe 1.5 mls @ 1 mls/min IV DAILY EN Stop: 01/20/21 08:59 Last Admin: 12/30/20 09:48 Dose: 1 mls/min Documented by: Ondansetron HCl (Ondansetron Inj 2 Mg/Ml 2 Ml Vial) 4 mg IV Q6H PRN PRN Reason: Nausea Stop: 01/19/21 19:18 Polyethylene Glycol (Polyethylene (Miralax) 17 Gm Pack) 17 gm PO DAILY PRN PRN Reason: Constipation Stop: 01/19/21 19:18 Promethazine HCl (Promethazine Hcl 25 Mg Tab) 25 mg PO Q6H PRN PRN Reason: Nausea And Vomiting Stop: 01/19/21 19:34 Sennosides (Senna 8.6 Mg Tab) [facility] Stop: 01/28/21 11:59 Last Admin: 12/31/20 08:38 Dose: 8.6 mg Documented by: Sodium Chloride (Sodium Chloride 0.65% Na Soln 45 Ml ([place])) 0 sprays NA QID PRN PRN Reason: Dryness Stop: 01/23/21 11:27 Vitamin D (Cholecalciferol 1,000 Units 25 Mcg Tab) 1,000 units PO [facility] Stop: 01/20/21 08:59 Last Admin: 12/31/20 08:37 Dose: 1,000 units Documented by: Zinc Sulfate (Zinc Sulfate 220 Mg Capsule) 220 mg PO [facility] Stop: 01/20/21 08:59 Last Admin: 12/31/20 08:38 Dose: 220 mg Documented by:
[2020-12-31] MEDS ORDERED: FUROSEMIDE INJ 20 MG/2 ML VIAL IV ONE (19:51)
[2020-12-31] MEDS: ENOXAPARIN INJ 40 MG/0.4 ML SYR SQ SCH (20:30)
[2021-01-01 07:03] LABS: Hematocrit (blood only) 41.3 % (42-52); Hemoglobin 14.1 g/dL (14.0-18.0); Mean Corpuscular Hemoglobin 31.8 pg (25-34); Mean Corpuscular Hgb Conc 34.1 g/dL (32-36); Mean Platelet Volume 9.7 fL (7.4-10.4); Platelet Count 331 K/uL (130-400); RDW Coefficient of Variation 13.5 % (11.5-14.5); RDW Standard Deviation 46.2 fL (36.4-46.3); Red Blood Count 4.44 M/uL (4.7-6.1); White Blood Count 8.04 K/uL (4.8-10.8)
[2021-01-01 07:47] LABS: BUN Creatinine Ratio 31.1 (10-20); C Reactive Protein 1.4 mg/dl (0-0.29); Calcium 8.7 mg/dl (8.5-10.1); Creatinine Clr Calc Pharmacy 104.7 ml/min; Est GFR (African American) 105.3 ml/min; Est GFR (Non-African American) 90.9 ml/min; Potassium 4.2 mmol/L (3.5-5.1)
[2021-01-01] MEDS: ASCORBIC ACID 500 MG TAB PO SCH ×2 (07:54→20:09)
[2021-01-01] MEDS: CHOLECALCIFEROL 1,000 UNITS 25 MCG TAB PO SCH (07:55)
[2021-01-01] MEDS: ZINC SULFATE 220 MG CAPSULE PO SCH (07:55)
[2021-01-01] MEDS: SENNA 8.6 MG TAB PO SCH (07:55)
[2021-01-01] MEDS: FUROSEMIDE INJ 20 MG/2 ML VIAL IV SCH (08:08)
[2021-01-01] MEDS: POTASSIUM CHLORIDE CRTAB 20 MEQ TABCR PO SCH (08:08)
--- NOTE | 2021-01-01 13:49 | Hospitalist Progress Note ---
Date of Service January 01, 2021 Assessment & Plan (1) Acute respiratory failure: Plan: 2/2 covid pneumonia. Unvaccinated patient with prolonged symptoms so no antiviral therapy offered. He has completed ten days of decadron therapy at this time. Holding further steroids. Continue IV Lasix 20 mg daily to keep a negative balance. Continue to monitor ins and outs along with daily weights. Courage incentive spirometer. Continue to work with PT/OT. (2) Pneumonia due to COVID-19 virus: Plan: Plan as above. (3) Appetite loss: Plan: 2/2 viral illness. It is improving. Remains on Senna/Colace/MiraLAX and suppository as needed for constipation. Ambulate with assistance as tolerated. (4) Acute urinary retention: Plan: Plan to have voiding trial prior to discharge. (5) Constipation: Plan: resolved overnight (6) DVT prophylaxis: Plan: Lovenox Full Code Dispo-cont PCU monitoring. Admission and Anticipated Discharge Date Admission Date: December 20, 2020 Subjective Doing okay this morning. Sitting on the recliner. Remains on high flow nasal cannula. No new symptoms or worsening of his respiratory symptoms. Review of system is negative. Review of Systems Review of Systems: All systems reviewed & are unremarkable except as noted in HPI & below Physical Exam Physical Exam: General: A&Ox3 HENT: NCAT, MMM, EOMI Eyes: PERRLA Neck: Supple, normal range of motion CVS: normal rate and rhythm Resp: b/l coarse breath sounds Abdomen: Soft, ND/NT Extremities: No c/c/e Neuro: face symmetric, no gross focal deficits appreciated Skin: warm and dry MSK: no joint swelling/erythema Results & Data Results & Data ([facility]) Vital Signs (Past 12 Hours) Vital Signs Temp Pulse Resp BP Pulse Ox 01/01/21 11:00 35.6 C L 106 H 24 91/66 L 95 01/01/21 07:27 36.6 C 84 17 100/69 95 01/01/21 02:57 36.8 C 94 H 25 H 116/78 94
[2021-01-01] MEDS: ENOXAPARIN INJ 40 MG/0.4 ML SYR SQ SCH (20:10)
[2021-01-02 08:32] LABS: Creatinine Clr Calc Pharmacy 104.7 ml/min; Est GFR (African American) 105.3 ml/min; Est GFR (Non-African American) 90.9 ml/min
[2021-01-02] MEDS: CHOLECALCIFEROL 1,000 UNITS 25 MCG TAB PO SCH (08:46)
[2021-01-02] MEDS: ASCORBIC ACID 500 MG TAB PO SCH ×2 (08:46→19:31)
[2021-01-02] MEDS: FUROSEMIDE INJ 20 MG/2 ML VIAL IV SCH (08:46)
[2021-01-02] MEDS: POTASSIUM CHLORIDE CRTAB 20 MEQ TABCR PO SCH (08:46)
[2021-01-02] MEDS: ZINC SULFATE 220 MG CAPSULE PO SCH (08:46)
[2021-01-02] MEDS: SENNA 8.6 MG TAB PO SCH (08:47)
--- NOTE | 2021-01-02 12:30 | Hospitalist Progress Note ---
Date of Service January 02, 2021 Assessment & Plan (1) Acute respiratory failure: Plan: 2/2 covid pneumonia. Unvaccinated patient with prolonged symptoms so no antiviral therapy offered. He has completed ten days of decadron therapy at this time. Holding further steroids. Continue IV Lasix 20 mg daily to keep a negative balance. Continue to monitor ins and outs along with daily weights. Courage incentive spirometer. Continue to work with PT/OT. Urine output of 1 L in the last 24 hours. (2) Pneumonia due to COVID-19 virus: Plan: Plan as above. (3) Appetite loss: Plan: 2/2 viral illness. It is improving. (4) Acute urinary retention: Plan: Plan to have voiding trial prior to discharge. (5) Constipation: Plan: resolved Remains on Senna/Colace/MiraLAX and suppository as needed for constipation. Ambulate with assistance as tolerated. (6) DVT prophylaxis: Plan: Lovenox Full Code Dispo-cont PCU monitoring. Admission and Anticipated Discharge Date Admission Date: December 20, 2020 Subjective Patient is resting comfortably. Did have a bowel movement earlier this morning. Appetite is improving. Remains on 13 L of nasal cannula today. Review of Systems Review of Systems: All systems reviewed & are unremarkable except as noted in HPI & below Physical Exam 2 Physical Exam: General: A&Ox3 HENT: NCAT, MMM, EOMI Eyes: PERRLA Neck: Supple, normal range of motion CVS: normal rate and rhythm Resp: b/l coarse breath sounds Abdomen: Soft, ND/NT Extremities: No c/c/e Neuro: face symmetric, no gross focal deficits appreciated Skin: warm and dry MSK: no joint swelling/erythema Wagoner catheter in place. Results & Data Results & Data ([facility]) Vital Signs (Past 12 Hours) Vital Signs Temp Pulse Pulse Resp BP Pulse Ox 01/02/21 11:13 36.9 C 100 H 19 92/69 L 90 01/02/21 08:00 98 H 01/02/21 07:20 36.7 C 92 H 19 102/69 95 01/02/21 06:45 94 01/02/21 04:30 95 01/02/21 03:07 37.2 C 98 H 18 101/69 91
[2021-01-02] MEDS: ENOXAPARIN INJ 40 MG/0.4 ML SYR SQ SCH (19:32)
[2021-01-03] MEDS: CHOLECALCIFEROL 1,000 UNITS 25 MCG TAB PO SCH (08:33)
[2021-01-03] MEDS: SENNA 8.6 MG TAB PO SCH (08:33)
[2021-01-03] MEDS: ZINC SULFATE 220 MG CAPSULE PO SCH (08:33)
[2021-01-03] MEDS: ASCORBIC ACID 500 MG TAB PO SCH ×2 (08:33→20:08)
[2021-01-03] MEDS: POTASSIUM CHLORIDE CRTAB 20 MEQ TABCR PO SCH (08:33)
[2021-01-03] MEDS: FUROSEMIDE INJ 20 MG/2 ML VIAL IV SCH (19:04)
[2021-01-03] MEDS: ENOXAPARIN INJ 40 MG/0.4 ML SYR SQ SCH (20:08)
--- NOTE | 2021-01-03 20:27 | Hospitalist Progress Note ---
Date of Service January 03, 2021 Assessment & Plan (1) Acute respiratory failure: Plan: 2/2 covid pneumonia. Unvaccinated patient with prolonged symptoms so no antiviral therapy offered. He has completed ten days of decadron therapy at this time. Holding further steroids. Continues IV Lasix 20 mg daily to keep a negative balance--somewhat hypotensive today so this was stopped. Continue to monitor ins and outs along with daily weights. Courage incentive spirometer. Continue to work with PT/OT to improve strength and endurance. (2) Pneumonia due to COVID-19 virus: Plan: Plan as above. (3) Appetite loss: Plan: 2/2 viral illness. It is improving. Cont to encourage PO intake. (4) Acute urinary retention: Plan: Paiz catheter placed several days ago, TOV now as patient is experiencing some discomfort with the catheter. (5) Constipation: Plan: resolved. Remains on Senna/Colace/MiraLAX and suppository as needed for constipation. Ambulate with assistance as tolerated. (6) DVT prophylaxis: Plan: Lovenox Full Code Dispo-cont PCU monitoring. Amena Smith DO [facility] Hospitalist Admission and Anticipated Discharge Date Admission Date: December 20, 2020 Subjective 75 yo M admitted with acute respiratory failure 2/2 covid pneumonia. Denies worsening of SOB Some penile tip pain related to paiz catheter, we discussed a TOV. denies cough, fevers, chills, pain or other issues today Reports being OOB to chair. Review of Systems Review of Systems: All systems were reviewed and negative except as indicated in subjective above. Physical Exam Physical Exam: CONSTITUTIONAL: WNWD, vitals as above, generally well- appearing, NAD EYES: normal conjunctivae, no scleral icterus ENT: external ear and nose normal, oropharynx clear, MMM NECK: trachea midline RESPIRATORY: crackles to left base, no wheezing or rales, no increased respiratory effort. CARDIOVASCULAR: regular rate and rhythm, S1 and 2 heard without murmurs, gallops or rubs, no JVD, no peripheral edema CHEST: inspection of chest was normal GASTROINTESTINAL: soft, nontender, ND, no guarding. MUSCULOSKELETAL: generalized weakness, head is normocephalic and atraumatic, no gross focal deficits. SKIN: warm and dry NEUROLOGIC: No facial palsy, no dysarthria. CN 2-12 grossly intact, no sensory deficit, normal cognition, normal speech, no tremor PSYCHIATRIC: alert cooperative and oriented to person, place and time. Results & Data Results & Data ([facility]) Vital Signs (Past 12 Hours) Vital Signs Temp Pulse Pulse Resp BP Pulse Ox 01/03/21 19:14 36.8 C 102 H 14 97/62 L 91 01/03/21 15:48 36.9 C 97 H 25 H 101/74 92 01/03/21 15:25 87 01/03/21 11:20 36 C L 103 H 18 93/57 L 95 01/03/21 09:00 110 H 17 95/70 L 95 Medications Administered Current Inpatient Medications Acetaminophen (Acetaminophen 325 Mg Tab) 650 mg PO Q4H PRN PRN Reason: Pain or Fever Stop: 01/19/21 19:18 Last Admin: 12/29/20 21:14 Dose: 650 mg Documented by: Ascorbic Acid (Ascorbic Acid 500 Mg Tab) 500 mg PO BID EN Stop: 01/19/21 20:59 Last Admin: 01/03/21 20:08 Dose: 500 mg Documented by: Bisacodyl (Bisacodyl 10 Mg Supp) 10 mg [place] DAILY PRN PRN Reason: Constipation Stop: 01/28/21 11:52 Last Admin: 12/30/20 13:45 Dose: 10 mg Documented by: Enoxaparin Sodium (Enoxaparin Inj 40 Mg/0.4 Ml Syr) 40 mg SQ HS EN Stop: 01/19/21 20:59 Last Admin: 01/03/21 20:08 Dose: 40 mg Documented by: Furosemide (Furosemide Inj 20 Mg/2 Ml Vial) 20 mg IV DAILY EN Stop: 01/31/21 08:59 Last Admin: 01/03/21 19:04 Dose: Not Given Documented by: Dexamethasone 6 mg/ Syringe 1.5 mls @ 1 mls/min IV DAILY EN Stop: 01/20/21 08:59 Last Admin: 12/30/20 09:48 Dose: 1 mls/min Documented by: Ondansetron HCl (Ondansetron Inj 2 Mg/Ml 2 Ml Vial) 4 mg IV Q6H PRN PRN Reason: Nausea Stop: 01/19/21 19:18 Polyethylene Glycol (Polyethylene (Miralax) 17 Gm Pack) 17 gm PO DAILY PRN PRN Reason: Constipation Stop: 01/19/21 19:18 Last Admin: 01/02/21 03:30 Dose: 17 gm Documented by: Potassium Chloride (Potassium Chloride Crtab 20 Meq Tabcr) 20 meq PO [facility] Stop: 01/31/21 08:59 Last Admin: 01/03/21 08:33 Dose: 20 meq Documented by: Promethazine HCl (Promethazine Hcl 25 Mg Tab) 25 mg PO Q6H PRN PRN Reason: Nausea And Vomiting Stop: 01/19/21 19:34 Sennosides (Senna 8.6 Mg Tab) 8.6 mg PO [facility] Stop: 01/28/21 11:59 Last Admin: 01/03/21 08:33 Dose: 8.6 mg Documented by: Sodium Chloride (Sodium Chloride 0.65% Na Soln 45 Ml ([place])) 0 sprays NA QID PRN PRN Reason: Dryness Stop: 01/23/21 11:27 Vitamin D (Cholecalciferol 1,000 Units 25 Mcg Tab) 1,000 units PO [facility] Stop: 01/20/21 08:59 Last Admin: 01/03/21 08:33 Dose: 1,000 units Documented by: Zinc Sulfate (Zinc Sulfate 220 Mg Capsule) 220 mg PO [facility] Stop: 01/20/21 08:59 Last Admin: 01/03/21 08:33 Dose: 220 mg Documented by:
[2021-01-04 06:02] LABS: Hematocrit (blood only) 38.6 % (42-52); Hemoglobin 13.1 g/dL (14.0-18.0); Mean Corpuscular Hemoglobin 31.6 pg (25-34); Mean Corpuscular Hgb Conc 33.9 g/dL (32-36); Mean Platelet Volume 9.6 fL (7.4-10.4); Platelet Count 320 K/uL (130-400); RDW Coefficient of Variation 13.6 % (11.5-14.5); RDW Standard Deviation 46.5 fL (36.4-46.3); Red Blood Count 4.15 M/uL (4.7-6.1); White Blood Count 7.25 K/uL (4.8-10.8)
[2021-01-04 06:34] LABS: BUN Creatinine Ratio 24.4 (10-20); Calcium 8.5 mg/dl (8.5-10.1); Creatinine Clr Calc Pharmacy 96.8 ml/min; Magnesium 2.2 mg/dl (1.8-2.4); Phosphorus 3.3 mg/dl (2.5-4.9); Potassium 4.3 mmol/L (3.5-5.1)
[2021-01-04] MEDS: ASCORBIC ACID 500 MG TAB PO SCH ×2 (08:21→20:25)
[2021-01-04] MEDS: POTASSIUM CHLORIDE CRTAB 20 MEQ TABCR PO SCH (08:21)
[2021-01-04] MEDS: CHOLECALCIFEROL 1,000 UNITS 25 MCG TAB PO SCH (08:22)
[2021-01-04] MEDS: ZINC SULFATE 220 MG CAPSULE PO SCH (08:22)
[2021-01-04] MEDS: SENNA 8.6 MG TAB PO SCH (08:23)
--- NOTE | 2021-01-04 10:59 | Hospitalist Progress Note ---
Date of Service January 04, 2021 Assessment & Plan (1) Acute respiratory failure: Plan: 2/2 covid pneumonia. Unvaccinated patient with prolonged symptoms so no antiviral therapy offered. He has completed ten days of decadron therapy at this time. Holding further steroids. Was receiving daily Lasix but this was held 2/2 relative hypotension. Continue to monitor ins and outs along with daily weights. Courage incentive spirometer. Continue to work with PT/OT to improve strength and endurance. (2) Pneumonia due to COVID-19 virus: Plan: Plan as above. (3) Appetite loss: Plan: 2/2 viral illness. It is improving. Cont to encourage PO intake. (4) Acute urinary retention: Plan: Wagoner catheter placed several days ago, TOV successful overnight. (5) Constipation: Plan: resolved. Remains on current bowel regimen. Ambulate with assistance as tolerated. (6) DVT prophylaxis: Plan: Lovenox Full Code Dispo-cont PCU monitoring. Discussed with Dr. Garcia from infection control that patient should be fine to come off isolation when bed available. Amena Smith DO [facility] Hospitalist Admission and Anticipated Discharge Date Admission Date: December 20, 2020 Subjective 75 yo M admitted with acute respiratory failure 2/2 covid pneumonia. Denies worsening of SOB Passed his TOV overnight and penile tip discomfort is resolved. denies cough, fevers, chills, pain or other issues today Continues to try and get OOB to chair Review of Systems Review of Systems: All systems were reviewed and negative except as indicated in subjective above. Physical Exam Physical Exam: CONSTITUTIONAL: WNWD, vitals as above, generally well- appearing, NAD EYES: normal conjunctivae, no scleral icterus ENT: external ear and nose normal, oropharynx clear, MMM NECK: trachea midline RESPIRATORY: crackles to bilateral bases, no wheezing or rales, no increased respiratory effort. CARDIOVASCULAR: regular rate and rhythm, S1 and 2 heard without murmurs, gallops or rubs, no JVD, no peripheral edema CHEST: inspection of chest was normal GASTROINTESTINAL: soft, nontender, ND, no guarding. MUSCULOSKELETAL: generalized weakness, head is normocephalic and atraumatic, no gross focal deficits. SKIN: warm and dry NEUROLOGIC: No facial palsy, no dysarthria. CN 2-12 grossly intact, no sensory deficit, normal cognition, normal speech, no tremor PSYCHIATRIC: alert cooperative and oriented to person, place and time. Results & Data Results & Data ([facility]) Vital Signs (Past 12 Hours) Vital Signs Temp Pulse Pulse Resp BP Pulse Ox 01/04/21 07:07 36.6 C 97 H 20 104/73 94 01/04/21 03:14 36.5 C 94 H 23 83/58 L 93 01/03/21 23:47 90 Laboratory Results Short CBC 01/04/21 Range/Units 05:47 WBC 7.25 (4.8-10.8) K/uL Hgb 13.1 L (14.0-18.0) g/dL Hct 38.6 L (42-52) % Plt Count 320 (130-400) K/uL BMP 01/04/21 05:47 Sodium 135 L Potassium 4.3 Chloride 104 Carbon Dioxide 30 BUN 20 H Creatinine 0.80 Glucose 106 H Calcium 8.5 Medications Administered Current Inpatient Medications Acetaminophen (Acetaminophen 325 Mg Tab) 650 mg PO Q4H PRN PRN Reason: Pain or Fever Stop: 01/19/21 19:18 Last Admin: 12/29/20 21:14 Dose: 650 mg Documented by: Ascorbic Acid (Ascorbic Acid 500 Mg Tab) 500 mg PO BID EN Stop: 01/19/21 20:59 Last Admin: 01/04/21 08:21 Dose: 500 mg Documented by: Bisacodyl (Bisacodyl 10 Mg Supp) 10 mg [place] DAILY PRN PRN Reason: Constipation Stop: 01/28/21 11:52 Last Admin: 12/30/20 13:45 Dose: 10 mg Documented by: Enoxaparin Sodium (Enoxaparin Inj 40 Mg/0.4 Ml Syr) 40 mg SQ HS EN Stop: 01/19/21 20:59 Last Admin: 01/03/21 20:08 Dose: 40 mg Documented by: Furosemide (Furosemide Inj 20 Mg/2 Ml Vial) 20 mg IV DAILY EN Stop: 01/31/21 08:59 Last Admin: 01/03/21 19:04 Dose: Not Given Documented by: Dexamethasone 6 mg/ Syringe 1.5 mls @ 1 mls/min IV DAILY EN Stop: 01/20/21 08:59 Last Admin: 12/30/20 09:48 Dose: 1 mls/min Documented by: Ondansetron HCl (Ondansetron Inj 2 Mg/Ml 2 Ml Vial) 4 mg IV Q6H PRN PRN Reason: Nausea Stop: 01/19/21 19:18 Polyethylene Glycol (Polyethylene (Miralax) 17 Gm Pack) 17 gm PO DAILY PRN PRN Reason: Constipation Stop: 01/19/21 19:18 Last Admin: 01/02/21 03:30 Dose: 17 gm Documented by: Potassium Chloride (Potassium Chloride Crtab 20 Meq Tabcr) [address] [facility] Stop: 01/31/21 08:59 Last Admin: 01/04/21 08:21 Dose: 20 meq Documented by: Promethazine HCl (Promethazine Hcl 25 Mg Tab) 25 mg PO Q6H PRN PRN Reason: Nausea And Vomiting Stop: 01/19/21 19:34 Sennosides (Senna 8.6 Mg Tab) 8.[address] [facility] Stop: 01/28/21 11:59 Last Admin: 01/04/21 08:23 Dose: Not Given Documented by: Sodium Chloride (Sodium Chloride 0.65% Na Soln 45 Ml ([place])) 0 sprays NA QID PRN PRN Reason: Dryness Stop: 01/23/21 11:27 Vitamin D (Cholecalciferol 1,000 Units 25 Mcg Tab) 1,[address] [facility] Stop: 01/20/21 08:59 Last Admin: 01/04/21 08:22 Dose: 1,000 units Documented by: Zinc Sulfate (Zinc Sulfate 220 Mg Capsule) [address] [facility] Stop: 01/20/21 08:59 Last Admin: 01/04/21 08:22 Dose: 220 mg Documented by:
[2021-01-04] MEDS: ENOXAPARIN INJ 40 MG/0.4 ML SYR SQ SCH (20:24)
[2021-01-05 05:04] LABS: Creatinine Clr Calc Pharmacy 93.3 ml/min; Est GFR (African American) 100.5 ml/min; Est GFR (Non-African American) 86.7 ml/min
[2021-01-05] MEDS: CHOLECALCIFEROL 1,000 UNITS 25 MCG TAB PO SCH (08:34)
[2021-01-05] MEDS: POTASSIUM CHLORIDE CRTAB 20 MEQ TABCR PO SCH (08:34)
[2021-01-05] MEDS: ASCORBIC ACID 500 MG TAB PO SCH ×2 (08:34→20:23)
[2021-01-05] MEDS: ZINC SULFATE 220 MG CAPSULE PO SCH (08:34)
[2021-01-05] MEDS: SENNA 8.6 MG TAB PO SCH (08:34)
[2021-01-05] MEDS ORDERED: SODIUM CHLORIDE 0.9% 1000ML 500 ML IV ONE (12:36)
[2021-01-05] MEDS ORDERED: OPTIRAY 320 125ml IV ONE (17:12)
--- NOTE | 2021-01-05 18:02 | CT Scan Report ---
CT angio chest PE protocol CLINICAL HISTORY: PE Covid positive. Chest pain. TECHNIQUE: Multidetector row helical CT of the chest was performed. Coronal and sagittal reformations were obtained. Automated dose lowering techniques and/or adjustment according to patient size were u tilized for this exam. Comparison: Comparison is made to chest one view 12/20/2020 FINDINGS: Lungs and pleura: Diffuse groundglass, consolidative, and reticular opacities are seen in the bilater al lungs. Heart and pericardium: Heart size is normal. No pericardial effusion. Vessels: No evidence of pulmonary embolism. The ascending aorta measures 41 mm. Mediastinum and chelita: Pneumomediastinum is noted. Chest wall and lower neck: Unremarkable. Abdomen: A hiatal hernia is seen. Scattered hepatic cysts are seen. Bones: Degenerative changes in the thoracic spine. IMPRESSION: 1. No evidence of pulmonary embolism. 2. Multifocal groundglass and consolidative opacities are compatible with history of Covid pneumonia . ACT 112: Negative or not required by law. Electronically signed by: Tung Dias M.D. 01/05/2021 6:01 PM
--- NOTE | 2021-01-05 18:11 | Hospitalist Progress Note ---
Date of Service January 05, 2021 Assessment & Plan (1) Acute respiratory failure: Plan: 2/2 covid pneumonia. Unvaccinated patient with prolonged symptoms so no antiviral therapy offered. He has completed ten days of decadron therapy at this time. Holding further steroids. Was receiving daily Lasix but this was held 2/2 relative hypotension. Continue to monitor ins and outs along with daily weights. Courage incentive spirometer. Continue to work with PT/OT to improve strength and endurance. (2) Pneumonia due to COVID-19 virus: Plan: Plan as above. (3) Appetite loss: Plan: 2/2 viral illness. It is improving. Cont to encourage PO intake. (4) Acute urinary retention: Plan: Wagoner catheter placed several days ago, TOV successful overnight. Continues to urinary spontaneously. (5) Constipation: Plan: resolved. Remains on current bowel regimen. Ambulate with assistance as tolerated. (6) DVT prophylaxis: Plan: Lovenox Full Code Dispo-cont PCU monitoring. Discussed with Dr. Garcia from infection control that patient should be fine to come off isolation when bed available. Amena Smith DO [facility] Hospitalist Admission and Anticipated Discharge Date Admission Date: December 20, 2020 Subjective 75 yo M admitted with acute respiratory failure 2/2 covid pneumonia. Denies worsening of SOB denies cough, fevers, chills, pain or other issues today Continues to try and get OOB to chair -was out for 4 hours today discussed possible transfer to rehab next week Review of Systems Review of Systems: All systems were reviewed and negative except as indicated in subjective above. Physical Exam Physical Exam: CONSTITUTIONAL: WNWD, vitals as above, generally well- appearing, NAD EYES: normal conjunctivae, no scleral icterus ENT: external ear and nose normal, oropharynx clear, MMM NECK: trachea midline RESPIRATORY: crackles to bilateral bases, no wheezing or rales, no increased respiratory effort. CARDIOVASCULAR: regular rate and rhythm, S1 and 2 heard without murmurs, gallops or rubs, no JVD, no peripheral edema CHEST: inspection of chest was normal GASTROINTESTINAL: soft, nontender, ND, no guarding. MUSCULOSKELETAL: generalized weakness, head is normocephalic and atraumatic, no gross focal deficits. SKIN: warm and dry NEUROLOGIC: No facial palsy, no dysarthria. CN 2-12 grossly intact, no sensory deficit, normal cognition, normal speech, no tremor PSYCHIATRIC: alert cooperative and oriented to person, place and time. Results & Data Results [facility]) Vital Signs (Past 12 Hours) Vital Signs Temp Pulse Pulse Resp BP Pulse Ox 01/05/21 16:00 81 01/05/21 14:56 36.6 C 97 H 18 100/71 93 01/05/21 14:45 96/65 L 01/05/21 10:47 36.2 C L 98 H 21 92/63 L 96 01/05/21 07:40 81 01/05/21 07:22 36.3 C L 83 18 97/68 L 95 Laboratory Results BMP 01/05/21 04:35 Creatinine 0.83 Diagnostic Findings Chest CTA 01/05/21 15:18 CT angio chest PE protocol CLINICAL HISTORY: PE Covid positive. Chest pain. TECHNIQUE: Multidetector row helical CT of the chest was performed. Coronal and sagittal reformations were obtained. Automated dose lowering techniques and/or adjustment according to patient size were utilized for this exam. Comparison: Comparison is made to chest one view 12/20/2020 FINDINGS: Lungs and pleura: Diffuse groundglass, consolidative, and reticular opacities are seen in the bilateral lungs. Heart and pericardium: Heart size is normal. No pericardial effusion. Vessels: No evidence of pulmonary embolism. The ascending aorta measures 41 mm. Mediastinum and chelita: Pneumomediastinum is noted. Chest wall and lower neck: Unremarkable. Abdomen: A hiatal hernia is seen. Scattered hepatic cysts are seen. Bones: Degenerative changes in the thoracic spine. IMPRESSION: 1. No evidence of pulmonary embolism. 2. Multifocal groundglass and consolidative opacities are compatible with history of Covid pneumonia. ACT 112: Negative or not required by law. Electronically signed by: Tung Dias M.D. 01/05/2021 6:01 PM Medications Administered Current Inpatient Medications Acetaminophen (Acetaminophen 325 Mg Tab) 650 mg PO Q4H PRN PRN Reason: Pain or Fever Stop: 01/19/21 19:18 Last Admin: 12/29/20 21:14 Dose: 650 mg Documented by: Ascorbic Acid (Ascorbic Acid 500 Mg Tab) 500 mg PO BID EN Stop: 01/19/21 20:59 Last Admin: 01/05/21 08:34 Dose: 500 mg Documented by: Bisacodyl (Bisacodyl 10 Mg Supp) 10 mg [place] DAILY PRN PRN Reason: Constipation Stop: 01/28/21 11:52 Last Admin: 12/30/20 13:45 Dose: 10 mg Documented by: Enoxaparin Sodium (Enoxaparin Inj 40 Mg/0.4 Ml Syr) 40 mg SQ HS [facility] Stop: 01/19/21 20:59 Last Admin: 01/04/21 20:24 Dose: 40 mg Documented by: Furosemide (Furosemide Inj 20 Mg/2 Ml Vial) 20 mg IV DAILY [facility] Stop: 01/31/21 08:59 Last Admin: 01/03/21 19:04 Dose: Not Given Documented by: Dexamethasone 6 mg/ Syringe 1.5 mls @ 1 mls/min IV DAILY [facility] Stop: 01/20/21 08:59 Last Admin: 12/30/20 09:48 Dose: 1 mls/min Documented by: Ondansetron HCl (Ondansetron Inj 2 Mg/Ml 2 Ml Vial) 4 mg IV Q6H PRN PRN Reason: Nausea Stop: 01/19/21 19:18 Polyethylene Glycol (Polyethylene (Miralax) 17 Gm Pack) 17 gm PO DAILY PRN PRN Reason: Constipation Stop: 01/19/21 19:18 Last Admin: 01/02/21 03:30 Dose: 17 gm Documented by: Potassium Chloride (Potassium Chloride Crtab 20 Meq Tabcr) 20 meq PO [facility] Stop: 01/31/21 08:59 Last Admin: 01/05/21 08:34 Dose: 20 meq Documented by: Promethazine HCl (Promethazine Hcl 25 Mg Tab) 25 mg PO Q6H PRN PRN Reason: Nausea And Vomiting Stop: 01/19/21 19:34 Sennosides (Senna 8.6 Mg Tab) 8.6 mg PO [facility] Stop: 01/28/21 11:59 Last Admin: 01/05/21 08:34 Dose: 8.6 mg Documented by: Sodium Chloride (Sodium Chloride 0.65% Na Soln 45 Ml ([place])) 0 sprays NA QID PRN PRN Reason: Dryness Stop: 01/23/21 11:27 Vitamin D (Cholecalciferol 1,000 Units 25 Mcg Tab) 1,000 units PO [facility] Stop: 01/20/21 08:59 Last Admin: 01/05/21 08:34 Dose: 1,000 units Documented by: Zinc Sulfate (Zinc Sulfate 220 Mg Capsule) 220 mg PO [facility] Stop: 01/20/21 08:59 Last Admin: 01/05/21 08:34 Dose: 220 mg Documented by:
[2021-01-05] MEDS: ENOXAPARIN INJ 40 MG/0.4 ML SYR SQ SCH (20:22)
[2021-01-06] MEDS: POTASSIUM CHLORIDE CRTAB 20 MEQ TABCR PO SCH (08:31)
[2021-01-06] MEDS: CHOLECALCIFEROL 1,000 UNITS 25 MCG TAB PO SCH (08:32)
[2021-01-06] MEDS: ASCORBIC ACID 500 MG TAB PO SCH ×2 (08:32→20:13)
[2021-01-06] MEDS: SENNA 8.6 MG TAB PO SCH ×2 (08:32→08:35)
[2021-01-06] MEDS: ZINC SULFATE 220 MG CAPSULE PO SCH (08:32)
[2021-01-06] MEDS: ACETAMINOPHEN 325 MG TAB PO PRN ×2 (08:34→15:27)
[2021-01-06 09:06] LABS: Basophils # (auto) 0.03 K/uL (0-0.2); Basophils % (auto) 0.5 %; Eosinophils # (auto) 0.42 K/uL (0-0.5); Eosinophils % (auto) 6.8 %; Hemoglobin 13.6 g/dL (14.0-18.0); Immature Granulocytes # (auto) 0.02 K/uL (0.00-0.02); Immature Granulocytes % (auto) 0.3 %; Lymphocytes # (auto) 0.83 K/uL (1.2-3.4); Lymphocytes % (auto) 13.3 %; Mean Corpuscular Hemoglobin 31.5 pg (25-34); Mean Corpuscular Hgb Conc 33.2 g/dL (32-36); Mean Corpuscular Volume 94.9 fL (80-100); Mean Platelet Volume 9.4 fL (7.4-10.4); Monocytes # (auto) 0.32 K/uL (0.11-0.59); Monocytes % (auto) 5.1 %; Platelet Count 275 K/uL (130-400); RDW Coefficient of Variation 13.8 % (11.5-14.5); RDW Standard Deviation 47.9 fL (36.4-46.3); Red Blood Count 4.32 M/uL (4.7-6.1); White Blood Count 6.22 K/uL (4.8-10.8)
[2021-01-06 09:30] LABS: Albumin Globulin Ratio 0.5 (0.9-2); Albumin Level 2.1 gm/dl (3.4-5.0); Bilirubin,Total 0.6 mg/dl (0.2-1); Calcium 8.5 mg/dl (8.5-10.1); Creatinine Clr Calc Pharmacy 99.3 ml/min; Est GFR (African American) 103.1 ml/min; Est GFR (Non-African American) 88.9 ml/min; Globulin 4.5 gm/dl (2.5-4.0); Potassium 4.2 mmol/L (3.5-5.1); Total Protein 6.6 gm/dl (6.4-8.2)
[2021-01-06 09:33] LABS: Appearance Urine Clear (Clear); Bilirubin Urine Negative (Negative); Blood Urine Negative (Negative); Color Urine Yellow; Glucose Urine UA Negative (Negative); Ketones Urine Negative (Negative); Leukocyte Esterase Urine Negative (Negative); Nitrite Urine Negative (Negative); Protein Urine Negative (Negative); Specific Gravity Urine 1.024 (1.000-1.030); Urobilinogen Urine Negative (Negative)
--- NOTE | 2021-01-06 15:35 | Hospitalist Progress Note ---
Date of Service January 06, 2021 Assessment & Plan (1) Acute respiratory failure: Plan: 2/2 covid pneumonia. Improving slowly with time. Unvaccinated patient with prolonged symptoms so no antiviral therapy offered. He has completed ten days of decadron therapy at this time. Holding further steroids. Was receiving daily Lasix but this was held 2/2 relative hypotension. Continue to monitor ins and outs along with daily weights. Courage incentive spirometer. Continue to work with PT/OT to improve strength and endurance. (2) Fever: Plan: Uncertain etiology, chest CT ruled out blood clot, worsening pneumonia or other concerning infectious lesions in the chest yesterday. UA performed today was clear, procalcitonin and lactate negative. He is remained relatively hypotensive and more tachycardic today. Question low p.o. intake and dehydration. We will continue with some IV fluids overnight to see if this helps. Continue to monitor fever curve closely and obtain CBC in a.m. (3) Pneumonia due to COVID-19 virus: Plan: Plan as above. (4) Appetite loss: Plan: 2/2 viral illness. It is improving. Cont to encourage PO intake. (5) Acute urinary retention: Plan: Wagoner catheter placed several days ago, TOV successful overnight. Continues to urinary spontaneously. (6) Constipation: Plan: resolved. Remains on current bowel regimen. Ambulate with assistance as tolerated. (7) DVT prophylaxis: Plan: Lovenox Full Code Dispo-cont PCU monitoring. Discussed with Dr. Garcia from infection control that patient should be fine to come off isolation when bed available. Amena Smith DO [facility] Hospitalist Admission and Anticipated Discharge Date Admission Date: December 20, 2020 Subjective 75 yo M admitted with acute respiratory failure 2/2 covid pneumonia. Denies worsening of SOB denies cough, +chills today and patient has been febrile with uncertain etiology. Continues to desaturate with exertion. Review of Systems Review of Systems: All systems were reviewed and negative except as indicated in subjective above. Physical Exam Physical Exam: CONSTITUTIONAL: WNWD, vitals as above, generally well- appearing, NAD EYES: normal conjunctivae, no scleral icterus ENT: external ear and nose normal, oropharynx clear, MMM NECK: trachea midline RESPIRATORY: crackles to bilateral bases, no wheezing or rales, no increased respiratory effort. CARDIOVASCULAR: regular rate and rhythm, S1 and 2 heard without murmurs, gallops or rubs, no JVD, no peripheral edema CHEST: inspection of chest was normal GASTROINTESTINAL: soft, nontender, ND, no guarding. MUSCULOSKELETAL: generalized weakness, head is normocephalic and atraumatic, no gross focal deficits. SKIN: warm and dry NEUROLOGIC: No facial palsy, no dysarthria. CN 2-12 grossly intact, no sensory deficit, normal cognition, normal speech, no tremor PSYCHIATRIC: alert cooperative and oriented to person, place and time. Results & Data Results & Data ([facility]) Vital Signs (Past 12 Hours) Vital Signs Temp Pulse Pulse Resp BP Pulse Ox 01/06/21 11:14 37.0 C 103 H 22 97/61 L 94 01/06/21 08:33 37.3 C 01/06/21 08:00 107 H 01/06/21 07:47 38.2 C H 95 H 31 H 119/70 94 Laboratory Results Short CBC 01/06/21 Range/Units 08:39 WBC 6.22 (4.8-10.8) K/uL Hgb 13.6 L (14.0-18.0) g/dL Hct 41.0 L (42-52) % Plt Count 275 (130-400) K/uL BMP 01/06/21 08:39 Sodium 136 Potassium 4.2 Chloride 103 Carbon Dioxide 28 BUN 12 Creatinine 0.78 Glucose 106 H Calcium 8.5 Liver Function 01/06/21 Range/Units 08:39 Total Bilirubin 0.6 (0.2-1) mg/dl AST 25 (15-37) U/L ALT 109 H (12-78) U/L Alkaline Phosphatase 70 (45-117) U/L Albumin 2.1 L (3.4-5.0) gm/dl Urine 01/06/21 Range/Units 09:21 Urine Color Yellow Urine Appearance Clear (Clear) Urine pH 7.0 (4.5-7.5) Ur Specific [place] 1.024 (1.000-1.030) Urine Protein Negative (Negative) Urine Glucose (UA) Negative (Negative) Medications Administered Current Inpatient Medications Acetaminophen (Acetaminophen 325 Mg Tab) 650 mg PO Q4H PRN PRN Reason: Pain or Fever Stop: 01/19/21 19:18 Last Admin: 01/06/21 15:27 Dose: 650 mg Documented by: Ascorbic Acid (Ascorbic Acid 500 Mg Tab) 500 mg PO BID [facility] Stop: 01/19/21 20:59 Last Admin: 01/06/21 08:32 Dose: 500 mg Documented by: Bisacodyl (Bisacodyl 10 Mg Supp) 10 mg [place] DAILY PRN PRN Reason: Constipation Stop: 01/28/21 11:52 Last Admin: 12/30/20 13:45 Dose: 10 mg Documented by: Enoxaparin Sodium (Enoxaparin Inj 40 Mg/0.4 Ml Syr) 40 mg SQ HS [facility] Stop: 01/19/21 20:59 Last Admin: 01/05/21 20:22 Dose: 40 mg Documented by: Furosemide (Furosemide Inj 20 Mg/2 Ml Vial) 20 mg IV DAILY [facility] Stop: 01/31/21 08:59 Last Admin: 01/03/21 19:04 Dose: Not Given Documented by: Dexamethasone 6 mg/ Syringe 1.5 mls @ 1 mls/min IV DAILY [facility] Stop: 01/20/21 08:59 Last Admin: 12/30/20 09:48 Dose: 1 mls/min Documented by: Ondansetron HCl (Ondansetron Inj 2 Mg/Ml 2 Ml Vial) 4 mg IV Q6H PRN PRN Reason: Nausea Stop: 01/19/21 19:18 Polyethylene Glycol (Polyethylene (Miralax) 17 Gm Pack) 17 gm PO DAILY PRN PRN Reason: Constipation Stop: 01/19/21 19:18 Last Admin: 01/02/21 03:30 Dose: 17 gm Documented by: Potassium Chloride (Potassium Chloride Crtab 20 Meq Tabcr) 20 meq PO QAM [facility] Stop: 01/31/21 08:59 Last Admin: 01/06/21 08:31 Dose: 20 meq Documented by: Promethazine HCl (Promethazine Hcl 25 Mg Tab) 25 mg PO Q6H PRN PRN Reason: Nausea And Vomiting Stop: 01/19/21 19:34 Sennosides (Senna 8.6 Mg Tab) 8.6 mg PO QAM [facility] Stop: 01/28/21 11:59 Last Admin: 01/06/21 08:35 Dose: Not Given Documented by: Sodium Chloride (Sodium Chloride 0.65% Na Soln 45 Ml ([place])) 0 sprays NA QID PRN PRN Reason: Dryness Stop: 01/23/21 11:27 Vitamin D (Cholecalciferol 1,000 Units 25 Mcg Tab) 1,000 units PO [facility] Stop: 01/20/21 08:59 Last Admin: 01/06/21 08:32 Dose: 1,000 units Documented by: Zinc Sulfate (Zinc Sulfate 220 Mg Capsule) 220 mg PO [facility] Stop: 01/20/21 08:59 Last Admin: 01/06/21 08:32 Dose: 220 mg Documented by:
[2021-01-06] MEDS ORDERED: SODIUM CHLORIDE 0.9% 1000ML 1,000 ML IV SCH (18:45)
[2021-01-06] MEDS: ENOXAPARIN INJ 40 MG/0.4 ML SYR SQ SCH (20:13)
[2021-01-07 07:07] LABS: Hemoglobin 11.8 g/dL (14.0-18.0); Mean Corpuscular Hemoglobin 31.2 pg (25-34); Mean Corpuscular Hgb Conc 32.8 g/dL (32-36); Mean Corpuscular Volume 95.2 fL (80-100); Mean Platelet Volume 9.3 fL (7.4-10.4); Platelet Count 268 K/uL (130-400); RDW Coefficient of Variation 13.9 % (11.5-14.5); RDW Standard Deviation 48.1 fL (36.4-46.3); Red Blood Count 3.78 M/uL (4.7-6.1); White Blood Count 4.79 K/uL (4.8-10.8)
[2021-01-07 07:26] LABS: BUN Creatinine Ratio 17.1 (10-20); Calcium 8.2 mg/dl (8.5-10.1); Creatinine Clr Calc Pharmacy 133.5 ml/min; Est GFR (African American) 116.4 ml/min; Est GFR (Non-African American) 100.4 ml/min
[2021-01-07] MEDS: SENNA 8.6 MG TAB PO SCH (08:18)
[2021-01-07] MEDS: POTASSIUM CHLORIDE CRTAB 20 MEQ TABCR PO SCH (08:18)
[2021-01-07] MEDS: ZINC SULFATE 220 MG CAPSULE PO SCH (08:18)
[2021-01-07] MEDS: CHOLECALCIFEROL 1,000 UNITS 25 MCG TAB PO SCH (08:18)
[2021-01-07] MEDS: ASCORBIC ACID 500 MG TAB PO SCH ×2 (08:19→21:27)
[2021-01-07 13:02] LABS: Hematocrit (blood only) 43.8 % (42-52); Hemoglobin 14.4 g/dL (14.0-18.0)
--- NOTE | 2021-01-07 15:11 | Hospitalist Progress Note ---
Date of Service January 07, 2021 Assessment & Plan (1) Acute respiratory failure: Plan: 2/2 covid pneumonia. Improving slowly with time. Unvaccinated patient with prolonged symptoms so no antiviral therapy offered. He has completed ten days of decadron therapy at this time. Was receiving daily Lasix but this was held 2/2 relative hypotension. Continue to monitor ins and outs along with daily weights. Courage incentive spirometer. Continue to work with PT/OT to improve strength and endurance. (2) Fever: Plan: workup negative, doesn't appears to be a true fever. Cont to monitor closely (3) Pneumonia due to COVID-19 virus: Plan: Plan as above. (4) Appetite loss: Plan: 2/2 viral illness. It is improving. Cont to encourage PO intake. (5) Acute urinary retention: Plan: Wagoner catheter placed several days ago, TOV successful overnight. Continues to urinary spontaneously. (6) Constipation: Plan: resolved. Remains on current bowel regimen. Ambulate with assistance as tolerated. (7) DVT prophylaxis: Plan: Lovenox Full Code Dispo-cont PCU monitoring. Discussed with Dr. Garcia from infection control that patient should be fine to come off isolation when bed available. Amena Smith DO [facility] Hospitalist Admission and Anticipated Discharge Date Admission Date: December 20, 2020 Subjective 75 yo M admitted with acute respiratory failure 2/2 covid pneumonia. Denies worsening of SOB denies cough, +chills today when moving from bedside chair to bed again, resolves with arm blankets. Do not believe the elevated temp is a true fever. Continues to desaturate with exertion. Review of Systems Review of Systems: All systems were reviewed and negative except as indicated in subjective above. Physical Exam Physical Exam: CONSTITUTIONAL: WNWD, vitals as above, generally well- appearing, NAD EYES: normal conjunctivae, no scleral icterus ENT: external ear and nose normal, oropharynx clear, MMM NECK: trachea midline RESPIRATORY: crackles to bilateral bases, no wheezing or rales, no increased respiratory effort. CARDIOVASCULAR: regular rate and rhythm, S1 and 2 heard without murmurs, gallops or rubs, no JVD, no peripheral edema CHEST: inspection of chest was normal GASTROINTESTINAL: soft, nontender, ND, no guarding. MUSCULOSKELETAL: generalized weakness, head is normocephalic and atraumatic, no gross focal deficits. SKIN: warm and dry NEUROLOGIC: No facial palsy, no dysarthria. CN 2-12 grossly intact, no sensory deficit, normal cognition, normal speech, no tremor PSYCHIATRIC: alert cooperative and oriented to person, place and time. Results & Data Results & Data ([facility]) Vital Signs (Past 12 Hours) Vital Signs Temp Pulse Pulse Pulse Resp BP Pulse Ox 01/07/21 12:13 37.0 C 84 21 91/66 L 96 01/07/21 08:10 36.9 C 91 H 25 H 102/64 92 01/07/21 08:00 96 H 01/07/21 04:11 36.8 C 93 H 16 101/63 95 Laboratory Results Short CBC 01/07/21 01/07/21 Range/Units 06:26 12:49 WBC 4.79 L (4.8-10.8) K/uL Hgb 11.8 L 14.4 (14.0-18.0) g/dL Hct 36.0 L 43.8 (42-52) % Plt Count 268 (130-400) K/uL BMP 01/07/21 06:26 Sodium 137 Potassium 4.0 Chloride 105 Carbon Dioxide 26 BUN 10 Creatinine 0.58 L Glucose 100 H Calcium 8.2 L Medications Administered Current Inpatient Medications Acetaminophen (Acetaminophen 325 Mg Tab) 650 mg PO Q4H PRN PRN Reason: Pain or Fever Stop: 01/19/21 19:18 Last Admin: 01/06/21 15:27 Dose: 650 mg Documented by: Ascorbic Acid (Ascorbic Acid 500 Mg Tab) 500 mg PO BID EN Stop: 01/19/21 20:59 Last Admin: 01/07/21 08:19 Dose: 500 mg Documented by: Bisacodyl (Bisacodyl 10 Mg Supp) 10 mg [place] DAILY PRN PRN Reason: Constipation Stop: 01/28/21 11:52 Last Admin: 12/30/20 13:45 Dose: 10 mg Documented by: Enoxaparin Sodium (Enoxaparin Inj 40 Mg/0.4 Ml Syr) 40 mg SQ HS EN Stop: 01/19/21 20:59 Last Admin: 01/06/21 20:13 Dose: 40 mg Documented by: Ondansetron HCl (Ondansetron Inj 2 Mg/Ml 2 Ml Vial) 4 mg IV Q6H PRN PRN Reason: Nausea Stop: 01/19/21 19:18 Polyethylene Glycol (Polyethylene (Miralax) 17 Gm Pack) 17 gm PO DAILY PRN PRN Reason: Constipation Stop: 01/19/21 19:18 Last Admin: 01/02/21 03:30 Dose: 17 gm Documented by: Potassium Chloride (Potassium Chloride Crtab 20 Meq Tabcr) [facility] Stop: 01/31/21 08:59 Last Admin: 01/07/21 08:18 Dose: 20 meq Documented by: Promethazine HCl (Promethazine Hcl 25 Mg Tab) 25 mg PO Q6H PRN PRN Reason: Nausea And Vomiting Stop: 01/19/21 19:34 Sennosides (Senna 8.6 Mg Tab) 8.6 mg PO [facility] Stop: 01/28/21 11:59 Last Admin: 01/07/21 08:18 Dose: 8.6 mg Documented by: Sodium Chloride (Sodium Chloride 0.65% Na Soln 45 Ml ([place])) 0 sprays NA QID PRN PRN Reason: Dryness Stop: 01/23/21 11:27 Vitamin D (Cholecalciferol 1,000 Units 25 Mcg Tab) 1,000 units PO [facility] Stop: 01/20/21 08:59 Last Admin: 01/07/21 08:18 Dose: 1,000 units Documented by: Zinc Sulfate (Zinc Sulfate 220 Mg Capsule) [facility] Stop: 01/20/21 08:59 Last Admin: 01/07/21 08:18 Dose: 220 mg Documented by:
[2021-01-07] MEDS: ENOXAPARIN INJ 40 MG/0.4 ML SYR SQ SCH (21:27)
[2021-01-08] MEDS: POTASSIUM CHLORIDE CRTAB 20 MEQ TABCR PO SCH (08:17)
[2021-01-08] MEDS: ASCORBIC ACID 500 MG TAB PO SCH ×2 (08:17→20:10)
[2021-01-08] MEDS: ZINC SULFATE 220 MG CAPSULE PO SCH (08:17)
[2021-01-08] MEDS: CHOLECALCIFEROL 1,000 UNITS 25 MCG TAB PO SCH (08:18)
[2021-01-08] MEDS: SENNA 8.6 MG TAB PO SCH (08:18)
--- NOTE | 2021-01-08 15:12 | Hospitalist Progress Note ---
Date of Service January 08, 2021 Assessment & Plan (1) Acute respiratory failure: Plan: 2/2 covid pneumonia. Improving slowly with time. Unvaccinated patient with prolonged symptoms so no antiviral therapy offered. He has completed ten days of decadron therapy at this time. Was receiving daily Lasix but this was held 2/2 relative hypotension. Continue to monitor ins and outs along with daily weights. Courage incentive spirometer. Continue to work with PT/OT to improve strength and endurance. (2) Fever: Plan: resolved, no evidence of infection. (3) Pneumonia due to COVID-19 virus: Plan: Plan as above. (4) Appetite loss: Plan: 2/2 viral illness. It is improving. Cont to encourage PO intake. (5) Acute urinary retention: Plan: Wagoner catheter placed several days ago, TOV successful overnight. Continues to urinary spontaneously. (6) Constipation: Plan: resolved. Remains on current bowel regimen. Ambulate with assistance as tolerated. (7) DVT prophylaxis: Plan: Lovenox Full Code Dispo-cont PCU monitoring. Discussed with Dr. Garcia from infection control that patient should be fine to come off isolation when bed available. Amena Smith DO [facility] Hospitalist Admission and Anticipated Discharge Date Admission Date: December 20, 2020 Subjective 75 yo M admitted with acute respiratory failure 2/2 covid pneumonia. Denies worsening of SOB denies cough, fevers or chills. Was OOB to chair for 3 hours. PT/OT reordered. Review of Systems Review of Systems: All systems were reviewed and negative except as indicated in subjective above. Physical Exam Physical Exam: CONSTITUTIONAL: WNWD, vitals as above, generally well- appearing, NAD EYES: normal conjunctivae, no scleral icterus ENT: external ear and nose normal, oropharynx clear, MMM NECK: trachea midline RESPIRATORY: crackles throughout all lung [place], no wheezing or rales, no increased respiratory effort. CARDIOVASCULAR: regular rate and rhythm, S1 and 2 heard without murmurs, gallops or rubs, no JVD, no peripheral edema CHEST: inspection of chest was normal GASTROINTESTINAL: soft, nontender, ND, no guarding. MUSCULOSKELETAL: generalized weakness, head is normocephalic and atraumatic, no gross focal deficits. SKIN: warm and dry NEUROLOGIC: No facial palsy, no dysarthria. CN 2-12 grossly intact, no sensory deficit, normal cognition, normal speech, no tremor PSYCHIATRIC: alert cooperative and oriented to person, place and time. Results & Data Results & Data ([facility]) Vital Signs (Past 12 Hours) Vital Signs Temp Pulse Pulse Resp BP Pulse Ox 01/08/21 11:35 37.0 C 101 H 25 H 102/68 90 01/08/21 09:28 105 H 01/08/21 07:32 37.0 C 74 21 115/72 97 01/08/21 03:57 36.7 C 87 23 101/66 96 Medications Administered Current Inpatient Medications Acetaminophen (Acetaminophen 325 Mg Tab) 650 mg PO Q4H PRN PRN Reason: Pain or Fever Stop: 01/19/21 19:18 Last Admin: 01/06/21 15:27 Dose: 650 mg Documented by: Ascorbic Acid (Ascorbic Acid 500 Mg Tab) 500 mg PO BID [facility] Stop: 01/19/21 20:59 Last Admin: 01/08/21 08:17 Dose: 500 mg Documented by: Bisacodyl (Bisacodyl 10 Mg Supp) 10 mg [place] DAILY PRN PRN Reason: Constipation Stop: 01/28/21 11:52 Last Admin: 12/30/20 13:45 Dose: 10 mg Documented by: Enoxaparin Sodium (Enoxaparin Inj 40 Mg/0.4 Ml Syr) 40 mg SQ HS EN Stop: 01/19/21 20:59 Last Admin: 01/07/21 21:27 Dose: 40 mg Documented by: Ondansetron HCl (Ondansetron Inj 2 Mg/Ml 2 Ml Vial) 4 mg IV Q6H PRN PRN Reason: Nausea Stop: 01/19/21 19:18 Polyethylene Glycol (Polyethylene (Miralax) 17 Gm Pack) 17 gm PO DAILY PRN PRN Reason: Constipation Stop: 01/19/21 19:18 Last Admin: 01/02/21 03:30 Dose: 17 gm Documented by: Potassium Chloride (Potassium Chloride Crtab 20 Meq Tabcr) 20 meq PO QAM [facility] Stop: 01/31/21 08:59 Last Admin: 01/08/21 08:17 Dose: 20 meq Documented by: Promethazine HCl (Promethazine Hcl 25 Mg Tab) 25 mg PO Q6H PRN PRN Reason: Nausea And Vomiting Stop: 01/19/21 19:34 Sennosides (Senna 8.6 Mg Tab) 8.6 mg PO [facility] Stop: 01/28/21 11:59 Last Admin: 01/08/21 08:18 Dose: 8.6 mg Documented by: Sodium Chloride (Sodium Chloride 0.65% Na Soln 45 Ml ([place])) 0 sprays NA QID PRN PRN Reason: Dryness Stop: 01/23/21 11:27 Vitamin D (Cholecalciferol 1,000 Units 25 Mcg Tab) 1,000 units PO [facility] Stop: 01/20/21 08:59 Last Admin: 01/08/21 08:18 Dose: 1,000 units Documented by: Zinc Sulfate (Zinc Sulfate 220 Mg Capsule) 220 mg PO [facility] Stop: 01/20/21 08:59 Last Admin: 01/08/21 08:17 Dose: 220 mg Documented by:
[2021-01-08] MEDS: ENOXAPARIN INJ 40 MG/0.4 ML SYR SQ SCH (20:10)
[2021-01-09] MEDS: POTASSIUM CHLORIDE CRTAB 20 MEQ TABCR PO SCH (08:55)
[2021-01-09] MEDS: ASCORBIC ACID 500 MG TAB PO SCH ×2 (08:55→20:29)
[2021-01-09] MEDS: ZINC SULFATE 220 MG CAPSULE PO SCH (08:56)
[2021-01-09] MEDS: CHOLECALCIFEROL 1,000 UNITS 25 MCG TAB PO SCH (08:56)
[2021-01-09] MEDS: SENNA 8.6 MG TAB PO SCH (08:56)
--- NOTE | 2021-01-09 19:34 | Hospitalist Progress Note ---
Date of Service January 09, 2021 Assessment & Plan (1) Acute respiratory failure: Plan: 2/2 covid pneumonia. Improving slowly with time. Unvaccinated patient with prolonged symptoms so no antiviral therapy offered. He has completed ten days of decadron therapy at this time. Was receiving daily Lasix but this was held 2/2 relative hypotension. Continue to monitor ins and outs along with daily weights. Courage incentive spirometer. Continue to work with PT/OT to improve strength and endurance. (2) Fever: Plan: resolved, no evidence of infection. (3) Pneumonia due to COVID-19 virus: Plan: Plan as above. (4) Appetite loss: Plan: 2/2 viral illness. It is improving. Cont to encourage PO intake. (5) Acute urinary retention: Plan: resolved. (6) Constipation: Plan: resolved. Remains on current bowel regimen. Ambulate with assistance as tolerated. (7) DVT prophylaxis: Plan: Lovenox Full Code Dispo-cont PCU monitoring. Discussed with Dr. Garcia from infection control that patient should be fine to come off isolation when bed available. Amena Smith DO [facility] Hospitalist Admission and Anticipated Discharge Date Admission Date: December 20, 2020 Subjective 75 yo M admitted with acute respiratory failure 2/2 covid pneumonia. Denies worsening of SOB denies cough, fevers or chills. Was OOB to chair for 3 hours. Walked to bathroom with PT Per nursing can require up to 15LPM with ambulation 3LPM at rest Review of Systems Review of Systems: All systems were reviewed and negative except as indicated in subjective above. Physical Exam Physical Exam: CONSTITUTIONAL: WNWD, vitals as above, generally well- appearing, NAD EYES: normal conjunctivae, no scleral icterus ENT: external ear and nose normal, oropharynx clear, MMM NECK: trachea midline RESPIRATORY: crackles in bases bilaterally, no wheezing or rales, no increased respiratory effort. CARDIOVASCULAR: regular rate and rhythm, S1 and 2 heard without murmurs, gallops or rubs, no JVD, no peripheral edema CHEST: inspection of chest was normal GASTROINTESTINAL: soft, nontender, ND, no guarding. MUSCULOSKELETAL: generalized weakness, head is normocephalic and atraumatic, no gross focal deficits. SKIN: warm and dry NEUROLOGIC: No facial palsy, no dysarthria. CN 2-12 grossly intact, no sensory deficit, normal cognition, normal speech, no tremor PSYCHIATRIC: alert cooperative and oriented to person, place and time. Results & Data Results & Data ([facility]) Vital Signs (Past 12 Hours) Vital Signs Temp Pulse Pulse Resp BP Pulse Ox Pulse Ox 01/09/21 18:37 93 01/09/21 15:19 36.9 C 94 H 20 101/53 L 96 01/09/21 15:10 96 H 01/09/21 11:33 36.9 C 104 H 20 90/56 L 93 01/09/21 08:00 109 H Medications Administered Current Inpatient Medications Acetaminophen (Acetaminophen 325 Mg Tab) 650 mg PO Q4H PRN PRN Reason: Pain or Fever Stop: 01/19/21 19:18 Last Admin: 01/06/21 15:27 Dose: 650 mg Documented by: Ascorbic Acid (Ascorbic Acid 500 Mg Tab) 500 mg PO BID [facility] Stop: 01/19/21 20:59 Last Admin: 01/09/21 08:55 Dose: 500 mg Documented by: Bisacodyl (Bisacodyl 10 Mg Supp) 10 mg [place] DAILY PRN PRN Reason: Constipation Stop: 01/28/21 11:52 Last Admin: 12/30/20 13:45 Dose: 10 mg Documented by: Enoxaparin Sodium (Enoxaparin Inj 40 Mg/0.4 Ml Syr) 40 mg SQ HS [facility] Stop: 01/19/21 20:59 Last Admin: 01/08/21 20:10 Dose: 40 mg Documented by: Ondansetron HCl (Ondansetron Inj 2 Mg/Ml 2 Ml Vial) 4 mg IV Q6H PRN PRN Reason: Nausea Stop: 01/19/21 19:18 Polyethylene Glycol (Polyethylene (Miralax) 17 Gm Pack) 17 gm PO DAILY PRN PRN Reason: Constipation Stop: 01/19/21 19:18 Last Admin: 01/02/21 03:30 Dose: 17 gm Documented by: Potassium Chloride (Potassium Chloride Crtab 20 Meq Tabcr) 20 meq PO QAM [facility] Stop: 01/31/21 08:59 Last Admin: 01/09/21 08:55 Dose: 20 meq Documented by: Promethazine HCl (Promethazine Hcl 25 Mg Tab) 25 mg PO Q6H PRN PRN Reason: Nausea And Vomiting Stop: 01/19/21 19:34 Sennosides (Senna 8.6 Mg Tab) 8.6 mg PO [facility] Stop: 01/28/21 11:59 Last Admin: 01/09/21 08:56 Dose: Not Given Documented by: Sodium Chloride (Sodium Chloride 0.65% Na Soln 45 Ml ([place])) 0 sprays NA QID PRN PRN Reason: Dryness Stop: 01/23/21 11:27 Vitamin D (Cholecalciferol 1,000 Units 25 Mcg Tab) 1,000 units PO [facility] Stop: 01/20/21 08:59 Last Admin: 01/09/21 08:56 Dose: 1,000 units Documented by: Zinc Sulfate (Zinc Sulfate 220 Mg Capsule) 220 mg PO [facility] Stop: 01/20/21 08:59 Last Admin: 01/09/21 08:56 Dose: 220 mg Documented by:
[2021-01-09] MEDS: ENOXAPARIN INJ 40 MG/0.4 ML SYR SQ SCH (20:29)
[2021-01-10] MEDS: ASCORBIC ACID 500 MG TAB PO SCH ×2 (08:00→21:00)
[2021-01-10] MEDS: POTASSIUM CHLORIDE CRTAB 20 MEQ TABCR PO SCH (08:00)
[2021-01-10] MEDS: CHOLECALCIFEROL 1,000 UNITS 25 MCG TAB PO SCH (08:01)
[2021-01-10] MEDS: SENNA 8.6 MG TAB PO SCH (08:01)
[2021-01-10] MEDS: ZINC SULFATE 220 MG CAPSULE PO SCH (08:01)
--- NOTE | 2021-01-10 19:39 | Hospitalist Progress Note ---
Date of Service January 10, 2021 Assessment & Plan (1) Acute respiratory failure: Plan: 2/2 covid pneumonia. Improving slowly with time. Unvaccinated patient with prolonged symptoms so no antiviral therapy offered. He has completed ten days of decadron therapy at this time. Was receiving daily Lasix but this was held 2/2 relative hypotension. Continue to monitor ins and outs along with daily weights. Courage incentive spirometer. Continue to work with PT/OT to improve strength and endurance. (2) Fever: Plan: resolved, no evidence of infection. (3) Pneumonia due to COVID-19 virus: Plan: Plan as above. (4) Appetite loss: Plan: 2/2 viral illness. It is improving. Cont to encourage PO intake. (5) Acute urinary retention: Plan: resolved. (6) Constipation: Plan: resolved. Remains on current bowel regimen. Ambulate with assistance as tolerated. (7) DVT prophylaxis: Plan: Lovenox Full Code Dispo-cont PCU monitoring. Discussed with Dr. Garcia from infection control that patient should be fine to come off isolation when bed available. Amena Smith DO [facility] Hospitalist Admission and Anticipated Discharge Date Admission Date: December 20, 2020 Subjective 75 yo M admitted with acute respiratory failure 2/2 covid pneumonia. Denies worsening of SOB denies cough, fevers or chills. Was OOB to chair for 3 hours. Walked to bathroom with PT Per nursing can require up to 15LPM with ambulation 3LPM at rest No real changes-[facility]erral [facility]. Review of Systems Review of Systems: All systems were reviewed and negative except as indicated in subjective above. Physical Exam Physical Exam: CONSTITUTIONAL: WNWD, vitals as above, generally well- appearing, NAD EYES: normal conjunctivae, no scleral icterus ENT: external ear and nose normal, oropharynx clear, MMM NECK: trachea midline RESPIRATORY: crackles in bases bilaterally, no wheezing or rales, no increased respiratory effort. CARDIOVASCULAR: regular rate and rhythm, S1 and 2 heard without murmurs, gallops or rubs, no JVD, no peripheral edema CHEST: inspection of chest was normal GASTROINTESTINAL: soft, nontender, ND, no guarding. MUSCULOSKELETAL: generalized weakness, head is normocephalic and atraumatic, no gross focal deficits. SKIN: warm and dry NEUROLOGIC: No facial palsy, no dysarthria. CN 2-12 grossly intact, no sensory deficit, normal cognition, normal speech, no tremor PSYCHIATRIC: alert cooperative and oriented to person, place and time. Results & Data Results & Data ([facility]) Vital Signs (Past 12 Hours) Vital Signs Temp Pulse Pulse Pulse Resp BP Pulse Ox 01/10/21 19:12 36.6 C 94 H 16 99/61 L 94 01/10/21 15:44 36.8 C 96 H 27 H 92/62 L 95 01/10/21 15:00 69 01/10/21 11:54 35.8 C L 109 H 30 H 94/62 L 90 01/10/21 08:00 96 H Medications Administered Current Inpatient Medications Acetaminophen (Acetaminophen 325 Mg Tab) 650 mg PO Q4H PRN PRN Reason: Pain or Fever Stop: 01/19/21 19:18 Last Admin: 01/06/21 15:27 Dose: 650 mg Documented by: Ascorbic Acid (Ascorbic Acid 500 Mg Tab) 500 mg PO BID EN Stop: 01/19/21 20:59 Last Admin: 01/10/21 08:00 Dose: 500 mg Documented by: Bisacodyl (Bisacodyl 10 Mg Supp) 10 mg [place] DAILY PRN PRN Reason: Constipation Stop: 01/28/21 11:52 Last Admin: 12/30/20 13:45 Dose: 10 mg Documented by: Enoxaparin Sodium (Enoxaparin Inj 40 Mg/0.4 Ml Syr) 40 mg SQ HS EN Stop: 01/19/21 20:59 Last Admin: 01/09/21 20:29 Dose: 40 mg Documented by: Ondansetron HCl (Ondansetron Inj 2 Mg/Ml 2 Ml Vial) 4 mg IV Q6H PRN PRN Reason: Nausea Stop: 01/19/21 19:18 Polyethylene Glycol (Polyethylene (Miralax) 17 Gm Pack) 17 gm PO DAILY PRN PRN Reason: Constipation Stop: 01/19/21 19:18 Last Admin: 01/02/21 03:30 Dose: 17 gm Documented by: Potassium Chloride (Potassium Chloride Crtab 20 Meq Tabcr) 20 meq PO QAM EN Stop: 01/31/21 08:59 Last Admin: 01/10/21 08:00 Dose: 20 meq Documented by: Promethazine HCl (Promethazine Hcl 25 Mg Tab) 25 mg PO Q6H PRN PRN Reason: Nausea And Vomiting Stop: 01/19/21 19:34 Sennosides (Senna 8.6 Mg Tab) 8.6 mg PO [facility] Stop: 01/28/21 11:59 Last Admin: 01/10/21 08:01 Dose: Not Given Documented by: Sodium Chloride (Sodium Chloride 0.65% Na Soln 45 Ml ([place])) 0 sprays NA QID PRN PRN Reason: Dryness Stop: 01/23/21 11:27 Vitamin D (Cholecalciferol 1,000 Units 25 Mcg Tab) 1,000 units PO [facility] Stop: 01/20/21 08:59 Last Admin: 01/10/21 08:01 Dose: 1,000 units Documented by: Zinc Sulfate (Zinc Sulfate 220 Mg Capsule) 220 mg PO [facility] Stop: 01/20/21 08:59 Last Admin: 01/10/21 08:01 Dose: 220 mg Documented by:
[2021-01-10] MEDS: ENOXAPARIN INJ 40 MG/0.4 ML SYR SQ SCH (21:00)
[2021-01-11 07:03] LABS: Hematocrit (blood only) 37.2 % (42-52); Hemoglobin 12.5 g/dL (14.0-18.0); Mean Corpuscular Hemoglobin 31.9 pg (25-34); Mean Corpuscular Hgb Conc 33.6 g/dL (32-36); Mean Corpuscular Volume 94.9 fL (80-100); Mean Platelet Volume 9.5 fL (7.4-10.4); Platelet Count 306 K/uL (130-400); RDW Coefficient of Variation 14.6 % (11.5-14.5); Red Blood Count 3.92 M/uL (4.7-6.1); White Blood Count 5.57 K/uL (4.8-10.8)
[2021-01-11 07:39] LABS: BUN Creatinine Ratio 18.9 (10-20); Calcium 8.4 mg/dl (8.5-10.1); Est GFR (African American) 111.8 ml/min; Est GFR (Non-African American) 96.5 ml/min; Potassium 4.2 mmol/L (3.5-5.1)
[2021-01-11] MEDS: ASCORBIC ACID 500 MG TAB PO SCH ×2 (08:57→20:18)
[2021-01-11] MEDS: POTASSIUM CHLORIDE CRTAB 20 MEQ TABCR PO SCH (08:57)
[2021-01-11] MEDS: SENNA 8.6 MG TAB PO SCH (08:57)
[2021-01-11] MEDS: CHOLECALCIFEROL 1,000 UNITS 25 MCG TAB PO SCH (08:58)
[2021-01-11] MEDS: ZINC SULFATE 220 MG CAPSULE PO SCH (08:58)
--- NOTE | 2021-01-11 20:15 | Hospitalist Progress Note ---
Date of Service January 11, 2021 Assessment & Plan (1) Acute respiratory failure: Plan: 2/2 covid pneumonia. Improving slowly with time. Unvaccinated patient with prolonged symptoms so no antiviral therapy offered. He has completed ten days of decadron therapy at this time. Was receiving daily Lasix but this was held 2/2 relative hypotension. Continue to monitor ins and outs along with daily weights. Courage incentive spirometer. Continue to work with PT/OT to improve strength and endurance. (2) Pneumonia due to COVID-19 virus: Plan: Plan as above. (3) Acute urinary retention: Plan: resolved. (4) Constipation: Plan: resolved. Remains on current bowel regimen. Ambulate with assistance as tolerated. (5) DVT prophylaxis: Plan: Lovenox Full Code Dispo-cont PCU monitoring. Discussed with Dr. Garcia from infection control that patient should be fine to come off isolation when bed available. Amena Smith DO [facility] Hospitalist Admission and Anticipated Discharge Date Admission Date: December 20, 2020 Subjective 75 yo M admitted with acute respiratory failure 2/2 covid pneumonia. No changes today Denies worsening of SOB denies cough, fevers or chills. Was OOB to chair for 3 hours. Walked to bathroom with PT Per nursing can require up to 15LPM with ambulation 3LPM at rest [facility] [place]. Approximately 1 minute SVT in the 170s on monitor. Spontaneously resolved to normal sinus rhythm. Patient was talking on the phone and asymptomatic at this time. Of note, when I walked in he was talking on the phone with his mask off eating a chocolate ice cream. His oxygen level was 82-85 at that time. Review of Systems Review of Systems: All systems were reviewed and negative except as indicated in subjective above. Physical Exam Physical Exam: CONSTITUTIONAL: WNWD, vitals as above, generally well- appearing, NAD EYES: normal conjunctivae, no scleral icterus ENT: external ear and nose normal, oropharynx clear, MMM NECK: trachea midline RESPIRATORY: Clear to auscultation throughout no wheezing or rales, no increased respiratory effort. CARDIOVASCULAR: regular rate and rhythm, S1 and 2 heard without murmurs, gallops or rubs, no JVD, no peripheral edema CHEST: inspection of chest was normal GASTROINTESTINAL: soft, nontender, ND, no guarding. MUSCULOSKELETAL: generalized weakness, head is normocephalic and atraumatic, no gross focal deficits. SKIN: warm and dry NEUROLOGIC: No facial palsy, no dysarthria. CN 2-12 grossly intact, no sensory deficit, normal cognition, normal speech, no tremor PSYCHIATRIC: alert cooperative and oriented to person, place and time. Results & Data Results & Data ([facility]) Vital Signs (Past 12 Hours) Vital Signs Temp Pulse Resp BP BP Pulse Ox 01/11/21 20:09 36.4 C L 94 H 24 93/71 L 90 01/11/21 16:12 36.4 C L 95 H 18 100/64 90 01/11/21 16:00 91 Laboratory Results Short CBC 01/11/21 Range/Units 06:33 WBC 5.57 (4.8-10.8) K/uL Hgb 12.5 L (14.0-18.0) g/dL Hct 37.2 L (42-52) % Plt Count 306 (130-400) K/uL BMP 01/11/21 06:33 Sodium 141 Potassium 4.2 Chloride 107 Carbon Dioxide 27 BUN 12 Creatinine 0.64 Glucose 102 H Calcium 8.4 L Medications Administered Current Inpatient Medications Acetaminophen (Acetaminophen 325 Mg Tab) 650 mg PO Q4H PRN PRN Reason: Pain or Fever Stop: 01/19/21 19:18 Last Admin: 01/06/21 15:27 Dose: 650 mg Documented by: Ascorbic Acid (Ascorbic Acid 500 Mg Tab) 500 mg PO BID EN Stop: 01/19/21 20:59 Last Admin: 01/11/21 08:57 Dose: 500 mg Documented by: Bisacodyl (Bisacodyl 10 Mg Supp) 10 mg [place] DAILY PRN PRN Reason: Constipation Stop: 01/28/21 11:52 Last Admin: 12/30/20 13:45 Dose: 10 mg Documented by: Enoxaparin Sodium (Enoxaparin Inj 40 Mg/0.4 Ml Syr) 40 mg SQ HS EN Stop: 01/19/21 20:59 Last Admin: 01/10/21 21:00 Dose: 40 mg Documented by: Ondansetron HCl (Ondansetron Inj 2 Mg/Ml 2 Ml Vial) 4 mg IV Q6H PRN PRN Reason: Nausea Stop: 11/26/21 19:18 Polyethylene Glycol (Polyethylene (Miralax) 17 Gm Pack) 17 gm PO DAILY PRN PRN Reason: Constipation Stop: 01/19/21 19:18 Last Admin: 01/02/21 03:30 Dose: 17 gm Documented by: Potassium Chloride (Potassium Chloride Crtab 20 Meq Tabcr) [facility] Stop: 01/31/21 08:59 Last Admin: 01/11/21 08:57 Dose: 20 meq Documented by: Promethazine HCl (Promethazine Hcl 25 Mg Tab) 25 mg PO Q6H PRN PRN Reason: Nausea And Vomiting Stop: 01/19/21 19:34 Sennosides (Senna 8.6 Mg Tab) 8.6 mg PO [facility] Stop: 01/28/21 11:59 Last Admin: 01/11/21 08:57 Dose: 8.6 mg Documented by: Sodium Chloride (Sodium Chloride 0.65% Na Soln 45 Ml ([place])) 0 sprays NA QID PRN PRN Reason: Dryness Stop: 01/23/21 11:27 Vitamin D (Cholecalciferol 1,000 Units 25 Mcg Tab) 1,000 units PO [facility] Stop: 01/20/21 08:59 Last Admin: 01/11/21 08:58 Dose: 1,000 units Documented by: Zinc Sulfate (Zinc Sulfate 220 Mg Capsule) 220 mg PO [facility] Stop: 01/20/21 08:59 Last Admin: 01/11/21 08:58 Dose: 220 mg Documented by:
[2021-01-11] MEDS: ENOXAPARIN INJ 40 MG/0.4 ML SYR SQ SCH (20:18)
[2021-01-12] MEDS: ZINC SULFATE 220 MG CAPSULE PO SCH (08:02)
[2021-01-12] MEDS: POTASSIUM CHLORIDE CRTAB 20 MEQ TABCR PO SCH (08:02)
[2021-01-12] MEDS: ASCORBIC ACID 500 MG TAB PO SCH ×2 (08:02→19:57)
[2021-01-12] MEDS: SENNA 8.6 MG TAB PO SCH (08:03)
[2021-01-12] MEDS: CHOLECALCIFEROL 1,000 UNITS 25 MCG TAB PO SCH (08:03)
--- NOTE | 2021-01-12 19:19 | Hospitalist Progress Note ---
Date of Service January 12, 2021 Assessment & Plan (1) Acute respiratory failure: Plan: 2/2 covid pneumonia. Improving slowly with time. Unvaccinated patient with prolonged symptoms so no antiviral therapy offered. He has completed ten days of decadron therapy at this time. Was receiving daily Lasix but this was held 2/2 relative hypotension. Continue to monitor ins and outs along with daily weights. Courage incentive spirometer. Continue to work with PT/OT to improve strength and endurance. Tachycardia present rather consistently. Will add low dose beta taylor in an effort to improve his hemodynamics somewhat. (2) Pneumonia due to COVID-19 virus: Plan: Plan as above. (3) Acute urinary retention: Plan: resolved. (4) Constipation: Plan: resolved. Remains on current bowel regimen. Ambulate with assistance as tolerated. (5) DVT prophylaxis: Plan: Lovenox Full Code Dispo-cont PCU monitoring. Discussed with Dr. Garcia from infection control that patient should be fine to come off isolation when bed available. Awaiting decision after the weekend on LTAC vs SNF. [facility] and Anticipated Discharge Date Admission Date: December 20, 2020 Subjective 75 yo M admitted with acute respiratory failure 2/2 covid pneumonia. No changes today Denies worsening of SOB denies cough, fevers or chills. Was OOB to chair for several hours. Review of Systems Review of Systems: All systems were reviewed and negative except as indicated in subjective above. Physical Exam Physical Exam: CONSTITUTIONAL: WNWD, vitals as above, generally well- appearing, NAD EYES: normal conjunctivae, no scleral icterus ENT: external ear and nose normal, oropharynx clear, MMM NECK: trachea midline RESPIRATORY: Clear to auscultation throughout no wheezing or rales, no increased respiratory effort. CARDIOVASCULAR: regular rate and rhythm, S1 and 2 heard without murmurs, gallops or rubs, no JVD, no peripheral edema CHEST: inspection of chest was normal GASTROINTESTINAL: soft, nontender, ND, no guarding. MUSCULOSKELETAL: generalized weakness, head is normocephalic and atraumatic, no gross focal deficits. SKIN: warm and dry NEUROLOGIC: No facial palsy, no dysarthria. CN 2-12 grossly intact, no sensory deficit, normal cognition, normal speech, no tremor PSYCHIATRIC: alert cooperative and oriented to person, place and time. Results & Data Results & Data ([facility]) Vital Signs (Past 12 Hours) Vital Signs Temp Pulse Pulse Resp BP BP Pulse Ox 01/12/21 16:00 36.5 C 86 18 106/61 95 01/12/21 11:34 100 H 20 90/63 L 93 01/12/21 09:00 73 Medications Administered Current Inpatient Medications Acetaminophen (Acetaminophen 325 Mg Tab) 650 mg PO Q4H PRN PRN Reason: Pain or Fever Stop: 01/19/21 19:18 Last Admin: 01/06/21 15:27 Dose: 650 mg Documented by: Ascorbic Acid (Ascorbic Acid 500 Mg Tab) 500 mg PO BID EN Stop: 01/19/21 20:59 Last Admin: 01/12/21 08:02 Dose: 500 mg Documented by: Bisacodyl (Bisacodyl 10 Mg Supp) 10 mg [place] DAILY PRN PRN Reason: Constipation Stop: 01/28/21 11:52 Last Admin: 12/30/20 13:45 Dose: 10 mg Documented by: Enoxaparin Sodium (Enoxaparin Inj 40 Mg/0.4 Ml Syr) 40 mg SQ HS EN Stop: 01/19/21 20:59 Last Admin: 01/11/21 20:18 Dose: 40 mg Documented by: Ondansetron HCl (Ondansetron Inj 2 Mg/Ml 2 Ml Vial) 4 mg IV Q6H PRN PRN Reason: Nausea Stop: 01/19/21 19:18 Polyethylene Glycol (Polyethylene (Miralax) 17 Gm Pack) 17 gm PO DAILY PRN PRN Reason: Constipation Stop: 01/19/21 19:18 Last Admin: 01/02/21 03:30 Dose: 17 gm Documented by: Potassium Chloride (Potassium Chloride Crtab 20 Meq Tabcr) 20 meq PO QAM EN Stop: 01/31/21 08:59 Last Admin: 01/12/21 08:02 Dose: 20 meq Documented by: Promethazine HCl (Promethazine Hcl 25 Mg Tab) 25 mg PO Q6H PRN PRN Reason: Nausea And Vomiting Stop: 01/19/21 19:34 Sennosides (Senna 8.6 Mg Tab) 8.6 mg PO QAM [facility] Stop: 01/28/21 11:59 Last Admin: 01/12/21 08:03 Dose: 8.6 mg Documented by: Sodium Chloride (Sodium Chloride 0.65% Na Soln 45 Ml ([place])) 0 sprays NA QID PRN PRN Reason: Dryness Stop: 01/23/21 11:27 Vitamin D (Cholecalciferol 1,000 Units 25 Mcg Tab) 1,000 units PO [facility] Stop: 01/20/21 08:59 Last Admin: 01/12/21 08:03 Dose: 1,000 units Documented by: Zinc Sulfate (Zinc Sulfate 220 Mg Capsule) 220 mg PO [facility] Stop: 01/20/21 08:59 Last Admin: 01/12/21 08:02 Dose: 220 mg Documented by:
[2021-01-12] MEDS: ENOXAPARIN INJ 40 MG/0.4 ML SYR SQ SCH (19:56)
[2021-01-12] MEDS: METOPROLOL TARTRATE 25 MG TAB PO SCH (22:18)
[2021-01-13] MEDS: CHOLECALCIFEROL 1,000 UNITS 25 MCG TAB PO SCH (09:13)
[2021-01-13] MEDS: METOPROLOL TARTRATE 25 MG TAB PO SCH ×2 (09:13→20:55)
[2021-01-13] MEDS: ASCORBIC ACID 500 MG TAB PO SCH ×2 (09:13→20:55)
[2021-01-13] MEDS: ZINC SULFATE 220 MG CAPSULE PO SCH (09:13)
[2021-01-13] MEDS: POTASSIUM CHLORIDE CRTAB 20 MEQ TABCR PO SCH (09:16)
[2021-01-13] MEDS: SENNA 8.6 MG TAB PO SCH (09:18)
--- NOTE | 2021-01-13 19:35 | Hospitalist Progress Note ---
Date of Service January 13, 2021 Assessment & Plan (1) Acute respiratory failure: (2) Pneumonia due to COVID-19 virus: Plan: Present on admission with worsening shortness of breath CTA chest showed no evidence of pulmonary embolism. Multifocal groundglass and consolidative opacities are compatible with history of Covid pneumonia. Unvaccinated patient with prolonged symptoms so no antiviral therapy offered. He has completed ten days of decadron therapy at this time. Was receiving daily Lasix but this was held 2/2 relative hypotension. Continue to monitor ins and outs along with daily weights. Continue incentive spirometer. Continue to work with PT/OT to improve strength and endurance. Continue oxygen supplement (3) Acute urinary retention: Plan: resolved. (4) Tachycardia: Plan: Heart rate improved Continue metoprolol 12.5 twice daily Continue monitor closely (5) Constipation: Plan: resolved. Remains on current bowel regimen. Ambulate with assistance as tolerated. (6) DVT prophylaxis: Plan: Lovenox Full Code Dispo-cont PCU monitoring. Discussed with Dr. Garcia from infection control that patient should be fine to come off isolation when bed available. Awaiting decision after the weekend on LTAC vs SNF. Admission and Anticipated Discharge Date Admission Date: December 20, 2020 Subjective Patient was seen and examined for follow-up of shortness of breath due to COVID- 19 Sitting in chair with no distress watching [employer] game Said his breathing is stable Continue to require oxygen supplement Denies any chest pain, palpitation, dizziness, and fever Review of Systems Review of Systems: All systems reviewed & are unremarkable except as noted in Subjective Physical Exam Physical Exam: General- No acute distress Head- atraumatic Eyes- PERRL, EOMI, ENT- oropharynx clear Neck- supple, no JVD Lungs-+diminished breath sounds Heart- regular rhythm; no murmur Abdomen- normal bowel sounds, soft, nontender Extremities- no calf tenderness Neuro- alert, oriented x 3; PERRL, EOMI; no facial palsy; no dysarthria Skin- warm & dry Results & Data Results & Data ([facility]) Vital Signs (Past 12 Hours) Vital Signs Temp Pulse Pulse Resp BP Pulse Ox 01/13/21 16:00 78 01/13/21 15:13 36.4 C L 80 20 93/62 L 95 01/13/21 11:34 36.5 C 80 16 99/64 L 96 11/20/21 08:00 93 H
[2021-01-13] MEDS: ENOXAPARIN INJ 40 MG/0.4 ML SYR SQ SCH (20:55)
[2021-01-14] MEDS: CHOLECALCIFEROL 1,000 UNITS 25 MCG TAB PO SCH (08:19)
[2021-01-14] MEDS: ASCORBIC ACID 500 MG TAB PO SCH ×2 (08:19→20:39)
[2021-01-14] MEDS: METOPROLOL TARTRATE 25 MG TAB PO SCH ×2 (08:20→20:39)
[2021-01-14] MEDS: SENNA 8.6 MG TAB PO SCH (08:35)
[2021-01-14] MEDS: POTASSIUM CHLORIDE CRTAB 20 MEQ TABCR PO SCH (08:35)
[2021-01-14] MEDS: ZINC SULFATE 220 MG CAPSULE PO SCH (08:35)
--- NOTE | 2021-01-14 14:56 | Hospitalist Progress Note ---
Date of Service January 14, 2021 Assessment & Plan (1) Acute respiratory failure: (2) Pneumonia due to COVID-19 virus: Plan: Present on admission with worsening shortness of breath CTA chest showed no evidence of pulmonary embolism. Multifocal groundglass and consolidative opacities are compatible with history of Covid pneumonia. Unvaccinated patient with prolonged symptoms so no antiviral therapy offered. He has completed ten days of decadron therapy at this time. Was receiving daily Lasix but this was held 2/2 relative hypotension. Lungs are more clear now. Continue incentive spirometer. Continue to work with PT/OT to improve strength and endurance. Continue oxygen supplementation--main thing we are now seeing is his higher need for oxygen supplementation wtih exertion as opposed to rest. (3) Acute urinary retention: Plan: resolved. (4) Tachycardia: Plan: Heart rate improved Continue metoprolol 12.5 twice daily Continue monitor closely (5) Constipation: Plan: resolved. Remains on current bowel regimen. Ambulate with assistance as tolerated. (6) DVT prophylaxis: Plan: Lovenox Full Code Dispo-cont PCU monitoring. Plan for SNF transition this week. Amena Smith DO [facility] Hospitalist Admission and Anticipated Discharge Date Admission Date: December 20, 2020 Subjective 75 yo M admitted with acute respiratory failure 2/2 covid pneumonia. No changes today Denies worsening of SOB denies cough, fevers or chills. Was OOB to chair for several hours. Now off isolation and expecting to see his family for the first time in just a few minutes. Doing very well overall. Review of Systems Review of Systems: All systems were reviewed and negative except as indicated in subjective above. Physical Exam Physical Exam: CONSTITUTIONAL: WNWD, vitals as above, generally well- appearing, NAD EYES: normal conjunctivae, no scleral icterus ENT: external ear and nose normal, oropharynx clear, MMM NECK: trachea midline RESPIRATORY: Clear to auscultation throughout no wheezing or rales, no increased respiratory effort. CARDIOVASCULAR: regular rate and rhythm, S1 and 2 heard without murmurs, gallops or rubs, no JVD, no peripheral edema CHEST: inspection of chest was normal GASTROINTESTINAL: soft, nontender, ND, no guarding. MUSCULOSKELETAL: generalized weakness, head is normocephalic and atraumatic, no gross focal deficits. SKIN: warm and dry NEUROLOGIC: No facial palsy, no dysarthria. CN 2-12 grossly intact, no sensory deficit, normal cognition, normal speech, no tremor PSYCHIATRIC: alert cooperative and oriented to person, place and time. Results & Data Results & Data ([facility]) Vital Signs (Past 12 Hours) Vital Signs Temp Pulse Pulse Resp BP BP Pulse Ox 01/14/21 11:24 36.5 C 76 20 108/67 95 01/14/21 07:49 36.6 C 88 18 100/70 90 01/14/21 07:24 77 01/14/21 03:41 37.0 C 88 20 91/66 L 95 Medications Administered Current Inpatient Medications Acetaminophen (Acetaminophen 325 Mg Tab) 650 mg PO Q4H PRN PRN Reason: Pain or Fever Stop: 01/19/21 19:18 Last Admin: 01/06/21 15:27 Dose: 650 mg Documented by: Ascorbic Acid (Ascorbic Acid 500 Mg Tab) 500 mg PO BID [facility] Stop: 01/19/21 20:59 Last Admin: 01/14/21 08:19 Dose: 500 mg Documented by: Bisacodyl (Bisacodyl 10 Mg Supp) 10 mg [place] DAILY PRN PRN Reason: Constipation Stop: 01/28/21 11:52 Last Admin: 12/30/20 13:45 Dose: 10 mg Documented by: Enoxaparin Sodium (Enoxaparin Inj 40 Mg/0.4 Ml Syr) 40 mg SQ HS [facility] Stop: 01/19/21 20:59 Last Admin: 01/13/21 20:55 Dose: 40 mg Documented by: Metoprolol Tartrate (Metoprolol Tartrate 25 Mg Tab) 12.5 mg PO BID [facility] Stop: 02/11/21 21:39 Last Admin: 01/14/21 08:20 Dose: 12.5 mg Documented by: Ondansetron HCl (Ondansetron Inj 2 Mg/Ml 2 Ml Vial) 4 mg IV Q6H PRN PRN Reason: Nausea Stop: 01/19/21 19:18 Polyethylene Glycol (Polyethylene (Miralax) 17 Gm Pack) 17 gm PO DAILY PRN PRN Reason: Constipation Stop: 01/19/21 19:18 Last Admin: 01/02/21 03:30 Dose: 17 gm Documented by: Potassium Chloride (Potassium Chloride Crtab 20 Meq Tabcr) 20 meq PO QAM [facility] Stop: 01/31/21 08:59 Last Admin: 01/14/21 08:35 Dose: 20 meq Documented by: Promethazine HCl (Promethazine Hcl 25 Mg Tab) 25 mg PO Q6H PRN PRN Reason: Nausea And Vomiting Stop: 01/19/21 19:34 Sennosides (Senna 8.6 Mg Tab) 8.6 mg PO [facility] Stop: 01/28/21 11:59 Last Admin: 01/14/21 08:35 Dose: Not Given Documented by: Sodium Chloride (Sodium Chloride 0.65% Na Soln 45 Ml ([place])) 0 sprays NA QID PRN PRN Reason: Dryness Stop: 01/23/21 11:27 Vitamin D (Cholecalciferol 1,000 Units 25 Mcg Tab) 1,000 units PO [facility] Stop: 01/20/21 08:59 Last Admin: 01/14/21 08:19 Dose: 1,000 units Documented by: Zinc Sulfate (Zinc Sulfate 220 Mg Capsule) 220 mg PO [facility] Stop: 01/20/21 08:59 Last Admin: 01/14/21 08:35 Dose: 220 mg Documented by:
[2021-01-14] MEDS: ENOXAPARIN INJ 40 MG/0.4 ML SYR SQ SCH (20:38)
[2021-01-15 06:30] LABS: Hematocrit (blood only) 38.4 % (42-52); Hemoglobin 12.7 g/dL (14.0-18.0); Mean Corpuscular Hemoglobin 31.7 pg (25-34); Mean Corpuscular Hgb Conc 33.1 g/dL (32-36); Mean Corpuscular Volume 95.8 fL (80-100); Mean Platelet Volume 9.1 fL (7.4-10.4); Platelet Count 335 K/uL (130-400); RDW Coefficient of Variation 15.1 % (11.5-14.5); RDW Standard Deviation 52.9 fL (36.4-46.3); Red Blood Count 4.01 M/uL (4.7-6.1); White Blood Count 5.49 K/uL (4.8-10.8)
[2021-01-15 07:06] LABS: BUN Creatinine Ratio 18.5 (10-20); Calcium 8.4 mg/dl (8.5-10.1); Creatinine Clr Calc Pharmacy 106.1 ml/min; Est GFR (African American) 105.9 ml/min; Est GFR (Non-African American) 91.4 ml/min; Potassium 4.2 mmol/L (3.5-5.1)
[2021-01-15] MEDS: ASCORBIC ACID 500 MG TAB PO SCH ×2 (08:07→20:50)
[2021-01-15] MEDS: METOPROLOL TARTRATE 25 MG TAB PO SCH ×2 (08:09→20:50)
[2021-01-15] MEDS: CHOLECALCIFEROL 1,000 UNITS 25 MCG TAB PO SCH (08:09)
[2021-01-15] MEDS: SENNA 8.6 MG TAB PO SCH (08:10)
[2021-01-15] MEDS: ZINC SULFATE 220 MG CAPSULE PO SCH (08:10)
[2021-01-15] MEDS: POTASSIUM CHLORIDE CRTAB 20 MEQ TABCR PO SCH (08:12)
--- NOTE | 2021-01-15 16:32 | Hospitalist Progress Note ---
Date of Service January 15, 2021 Assessment & Plan (1) Acute respiratory failure: Plan: Management as documented below (2) Pneumonia due to COVID-19 virus: Plan: Present on admission with worsening shortness of breath CTA chest showed no evidence of pulmonary embolism. Multifocal groundglass and consolidative opacities are compatible with history of Covid pneumonia. Unvaccinated patient with prolonged symptoms so no antiviral therapy offered. He has completed ten days of decadron therapy at this time. Was receiving daily Lasix but this was held 2/2 relative hypotension. Lungs are more clear now. Continue incentive spirometer. Continue to work with PT/OT to improve strength and endurance. Continue oxygen supplementation--main thing we are now seeing is his higher need for oxygen supplementation wtih exertion as opposed to rest. He has been very short of breath and requires high flow oxygen with ambulation and minimal exertion but the symptoms have improved and he is being denied from select facility Has had PT and OT evaluation and awaiting to go to [facility] Medically stable to be transferred when accepted (3) Acute urinary retention: Plan: resolved. (4) Tachycardia: Plan: Heart rate improved Continue metoprolol 12.5 twice daily Continue monitor closely (5) Constipation: Plan: Resolved. Remains on current bowel regimen. Ambulate with assistance as tolerated. (6) DVT prophylaxis: Plan: Lovenox Full Code Dispo-cont PCU monitoring. Plan for SNF transition this week. Admission and Anticipated Discharge Date Admission Date: December 20, 2020 Subjective 01/15/2021 The patient was seen and examined in telemetry unit He has been denied from select facility in [place] He has been feeling much better and waiting to be transferred to [facility] Review of Systems Review of Systems: All systems reviewed and are unremarkable except as noted below Respiratory: Mild to moderate shortness of breath at rest Neurologic: Generally weak and lethargic Physical Exam Physical Exam: Lying in bed with mildshortness of breath Constitutional: + acute distress (Due to shortness of breath), + ill appearing and average body habitus Eyes: PERRL, conjunctivae normal, anicteric sclerae ENMT: external ear and nose normal, oropharynx normal Neck: trachea midline, no thyromegaly Respiratory: + labored breathing and + cough; no respiratory distress Auscultation: + diminished lung sounds and + crackles (At the bases) Cardiovascular: Rate/Rhythm: regular rate and regular rhythm; not tachycardic Heart Sounds: normal S1 and normal S2; no murmur Extremities: + edema (T race edema bilaterally) Gastrointestinal (Abdomen): Inspection/Auscultation: normal bowel sounds; abdomen not distended Percussion/Palpation: abdomen soft; abdomen nontender Musculoskeletal: No acute arthritis in any joint Neurologic: Alert, awake and oriented x3 Psychiatric: A+Ox3, euthymic affect Lymphatic: no cervical or axillary lymphadenopathy Results & Data Results & Data ([facility]) Vital Signs (Past 12 Hours) Vital Signs Temp Pulse Pulse Resp BP Pulse Ox 01/15/21 15:34 36.6 C 81 18 111/72 96 01/15/21 15:14 80 01/15/21 11:52 36.4 C L 87 18 89/57 L 88 L 01/15/21 07:46 79 01/15/21 07:36 36.6 C 80 18 105/71 92 Laboratory Results Short CBC 01/15/21 Range/Units 06:09 WBC 5.49 (4.8-10.8) K/uL Hgb 12.7 L (14.0-18.0) g/dL Hct 38.4 L (42-52) % Plt Count 335 (130-400) K/uL BMP 01/15/21 06:09 Sodium 142 Potassium 4.2 Chloride 109 H Carbon Dioxide 26 BUN 13 Creatinine 0.73 Glucose 93 Calcium 8.4 L Medications Administered Current Inpatient Medications Acetaminophen (Acetaminophen 325 Mg Tab) 650 mg PO Q4H PRN PRN Reason: Pain or Fever Stop: 01/19/21 19:18 Last Admin: 01/06/21 15:27 Dose: 650 mg Documented by: Ascorbic Acid (Ascorbic Acid 500 Mg Tab) 500 mg PO BID [facility] Stop: 01/19/21 20:59 Last Admin: 01/15/21 08:07 Dose: 500 mg Documented by: Bisacodyl (Bisacodyl 10 Mg Supp) 10 mg [place] DAILY PRN PRN Reason: Constipation Stop: 01/28/21 11:52 Last Admin: 12/30/20 13:45 Dose: 10 mg Documented by: Enoxaparin Sodium (Enoxaparin Inj 40 Mg/0.4 Ml Syr) 40 mg SQ HS [facility] Stop: 01/19/21 20:59 Last Admin: 01/14/21 20:38 Dose: 40 mg Documented by: Metoprolol Tartrate (Metoprolol Tartrate 25 Mg Tab) 12.5 mg PO BID [facility] Stop: 02/11/21 21:39 Last Admin: 01/15/21 08:09 Dose: 12.5 mg Documented by: Ondansetron HCl (Ondansetron Inj 2 Mg/Ml 2 Ml Vial) 4 mg IV Q6H PRN PRN Reason: Nausea Stop: 01/19/21 19:18 Polyethylene Glycol (Polyethylene (Miralax) 17 Gm Pack) 17 gm PO DAILY PRN PRN Reason: Constipation Stop: 01/19/21 19:18 Last Admin: 01/02/21 03:30 Dose: 17 gm Documented by: Potassium Chloride (Potassium Chloride Crtab 20 Meq Tabcr) 20 meq PO [facility] Stop: 01/31/21 08:59 Last Admin: 01/15/21 08:12 Dose: 20 meq Documented by: Promethazine HCl (Promethazine Hcl 25 Mg Tab) 25 mg PO Q6H PRN PRN Reason: Nausea And Vomiting Stop: 01/19/21 19:34 Sennosides (Senna 8.6 Mg Tab) 8.6 mg PO [facility] Stop: 01/28/21 11:59 Last Admin: 01/15/21 08:10 Dose: Not Given Documented by: Sodium Chloride (Sodium Chloride 0.65% Na Soln 45 Ml ([place])) 0 sprays NA QID PRN PRN Reason: Dryness Stop: 01/23/21 11:27 Vitamin D (Cholecalciferol 1,000 Units 25 Mcg Tab) 1,000 units PO [facility] Stop: 01/20/21 08:59 Last Admin: 01/15/21 08:09 Dose: 1,000 units Documented by: Zinc Sulfate (Zinc Sulfate 220 Mg Capsule) 220 mg PO [facility] Stop: 01/20/21 08:59 Last Admin: 01/15/21 08:10 Dose: 220 mg Documented by:
[2021-01-15] MEDS: ENOXAPARIN INJ 40 MG/0.4 ML SYR SQ SCH (20:49)
[2021-01-16] MEDS: METOPROLOL TARTRATE 25 MG TAB PO SCH (08:16)
[2021-01-16] MEDS: ASCORBIC ACID 500 MG TAB PO SCH (08:16)
[2021-01-16] MEDS: ZINC SULFATE 220 MG CAPSULE PO SCH (08:17)
[2021-01-16] MEDS: SENNA 8.6 MG TAB PO SCH (08:17)
[2021-01-16] MEDS: CHOLECALCIFEROL 1,000 UNITS 25 MCG TAB PO SCH (08:17)
[2021-01-16] MEDS: POTASSIUM CHLORIDE CRTAB 20 MEQ TABCR PO SCH (08:19)
--- NOTE | 2021-01-16 12:58 | Hospitalist Progress Note ---
Date of Service January 16, 2021 Assessment & Plan (1) Acute respiratory failure: Plan: Management as documented below He has been requiring up to 4 L of oxygen via nasal cannula to maintain saturation (2) Pneumonia due to COVID-19 virus: Plan: Present on admission with worsening shortness of breath CTA chest showed no evidence of pulmonary embolism. Multifocal groundglass and consolidative opacities are compatible with history of Covid pneumonia. Unvaccinated patient with prolonged symptoms so no antiviral therapy offered. He has completed ten days of decadron therapy at this time. Was receiving daily Lasix but this was held 2/2 relative hypotension. Lungs are more clear now. Continue incentive spirometer. Continue to work with PT/OT to improve strength and endurance. Continue oxygen supplementation--main thing we are now seeing is his higher need for oxygen supplementation wtih exertion as opposed to rest. He has been very short of breath and requires high flow oxygen with ambulation and minimal exertion but the symptoms have improved and he is being denied from [facility] facility Has had PT and OT evaluation and awaiting to go to and continue PT and OT for further improvement Remains stable and has been requiring up to 4 L of oxygen at rest to maintain saturation Is been accepted to and will be transferred to this afternoon (3) Acute urinary retention: Plan: resolved. (4) Tachycardia: Plan: Heart rate improved Continue metoprolol 12.5 twice daily Continue monitor closely (5) Constipation: Plan: Resolved. Remains on current bowel regimen. Ambulate with assistance as tolerated. (6) DVT prophylaxis: Plan: Lovenox Full Code Dispo-cont PCU monitoring. Plan for SNF transition this week. Admission and Anticipated Discharge Date Admission Date: December 20, 2020 Subjective 01/15/2021 The patient was seen and examined in telemetry unit He has been denied from [facility] facility in [place] He has been feeling much better and waiting to be transferred to 01/16/2021 The patient was seen and examined in telemetry unit He remains stable and has minimal shortness of breath at rest He requires about 4 L of oxygen at rest to maintain saturation Denies any chest pain and/or palpitation, no abdominal pain nausea and vomiting Review of Systems Review of Systems: All systems reviewed and are unremarkable except as noted below Respiratory: Mild to moderate shortness of breath at rest Neurologic: Generally weak and lethargic Physical Exam Physical Exam: Lying in bed with mild shortness of breath Constitutional: + acute distress (Due to shortness of breath), + ill appearing and average body habitus Eyes: PERRL, conjunctivae normal, anicteric sclerae ENMT: external ear and nose normal, oropharynx normal Neck: trachea midline, no thyromegaly Respiratory: + labored breathing and + cough; no respiratory distress Auscultation: + diminished lung sounds and + crackles (At the bases) Cardiovascular: Rate/Rhythm: regular rate and regular rhythm; not tachycardic Heart Sounds: normal S1 and normal S2; no murmur Extremities: + edema (Trace edema bilaterally) Gastrointestinal (Abdomen): Inspection/Auscultation: normal bowel sounds; abdomen not distended Percussion/Palpation: abdomen soft; abdomen nontender Musculoskeletal: No acute arthritis in any joint Neurologic: Alert, awake and oriented x3. He generally weak but no focal sensory or motor deficit appreciated Psychiatric: A+Ox3, euthymic affect Lymphatic: no cervical or axillary lymphadenopathy Results & Data Results & Data ([facility]) Vital Signs (Past 12 Hours) Vital Signs Temp Pulse Pulse Pulse Resp BP BP 01/16/21 12:29 01/16/21 11:49 36.6 C 99 H 19 96/65 L 01/16/21 11:08 36.9 C 76 77 19 97/68 L 100/66 01/16/21 09:54 75 01/16/21 07:57 36.9 C 77 19 97/68 L 01/16/21 03:47 37.1 C 77 17 100/66 Pulse Ox 01/16/21 12:29 94 01/16/21 11:49 93 01/16/21 11:08 95 01/16/21 09:54 01/16/21 07:57 95 01/16/21 03:47 92 Medications Administered Current Inpatient Medications Acetaminophen (Acetaminophen 325 Mg Tab) 650 mg PO Q4H PRN PRN Reason: Pain or Fever Stop: 01/19/21 19:18 Last Admin: 01/06/21 15:27 Dose: 650 mg Documented by: Ascorbic Acid (Ascorbic Acid 500 Mg Tab) 500 mg PO BID [facility] Stop: 01/19/21 20:59 Last Admin: 01/16/21 08:16 Dose: 500 mg Documented by: Bisacodyl (Bisacodyl 10 Mg Supp) 10 mg [place] DAILY PRN PRN Reason: Constipation Stop: 01/28/21 11:52 Last Admin: 12/30/20 13:45 Dose: 10 mg Documented by: Enoxaparin Sodium (Enoxaparin Inj 40 Mg/0.4 Ml Syr) 40 mg SQ HS [facility] Stop: 01/19/21 20:59 Last Admin: 01/15/21 20:49 Dose: 40 mg Documented by: Metoprolol Tartrate (Metoprolol Tartrate 25 Mg Tab) 12.5 mg PO BID [facility] Stop: 02/11/21 21:39 Last Admin: 01/16/21 08:16 Dose: Not Given Documented by: Ondansetron HCl (Ondansetron Inj 2 Mg/Ml 2 Ml Vial) 4 mg IV Q6H PRN PRN Reason: Nausea Stop: 01/19/21 19:18 Polyethylene Glycol (Polyethylene (Miralax) 17 Gm Pack) 17 gm PO DAILY PRN PRN Reason: Constipation Stop: 01/19/21 19:18 Last Admin: 01/02/21 03:30 Dose: 17 gm Documented by: Potassium Chloride (Potassium Chloride Crtab 20 Meq Tabcr) 20 meq PO [facility] Stop: 01/31/21 08:59 Last Admin: 01/16/21 08:19 Dose: 20 meq Documented by: Promethazine HCl (Promethazine Hcl 25 Mg Tab) 25 mg PO Q6H PRN PRN Reason: Nausea And Vomiting Stop: 01/19/21 19:34 Sennosides (Senna 8.6 Mg Tab) 8.6 mg PO [facility] Stop: 01/28/21 11:59 Last Admin: 01/16/21 08:17 Dose: Not Given Documented by: Sodium Chloride (Sodium Chloride 0.65% Na Soln 45 Ml ([place])) 0 sprays NA QID PRN PRN Reason: Dryness Stop: 01/23/21 11:27 Vitamin D (Cholecalciferol 1,000 Units 25 Mcg Tab) 1,000 units PO [facility] Stop: 01/20/21 08:59 Last Admin: 01/16/21 08:17 Dose: 1,000 units Documented by: Zinc Sulfate (Zinc Sulfate 220 Mg Capsule) 220 mg PO [facility] Stop: 01/20/21 08:59 Last Admin: 01/16/21 08:17 Dose: 220 mg Documented by:
--- NOTE | 2021-01-17 08:08 | Discharge Summary ---
Date of Service January 17, 2021 Admission HPI Per Admitting Provider 75 yo M who presents with worsening shortness of breath. He reports having a nonproductive cough and generalized malaise with some nausea and low appetite since mid November. He then went to an urgent care where he was found to be hypoxic and was then sent to the ER in [place], [place]. There he reports being admitted overnight and was given steroids. He reports a "workup for blood clot" which was negative. He was diagnosed at that time with covid pneumonia and was sent home after one day with oxygen at 4LPM. He reports feeling weak and uncertain on his feet at home, with increasing worsening shortness of breath. His cough has resolved. He denies any fevers, chills, abdominal pain, chest pain, headache, urinary symptoms, GI symptoms. He is still not eating much reportedly eating only applesauce yesterday and nothing today. He is requiring hi flow oxygen supplementation in the ER. He has persistent pneumonia on chest imaging. I contacted his by phone who has similar symptoms and corrobora razia his story. Admission Exam Per Admitting Provider Physical Exam: CONSTITUTIONAL: WNWD, vitals as above, generally well- appearing, NAD EYES: normal conjunctivae, no scleral icterus ENT: external ear and nose normal, oropharynx clear, MMM NECK: trachea midline RESPIRATORY: course rhonchi at bases bilaterally, no wheezing or rales, no increased respiratory effort. CARDIOVASCULAR: regular rate and rhythm, S1 and 2 heard without murmurs, gallops or rubs, no JVD, no peripheral edema CHEST: inspection of chest was normal GASTROINTESTINAL: soft, nontender, ND MUSCULOSKELETAL: strength 5/5 throughout, head is normocephalic and atraumatic SKIN: warm and dry NEUROLOGIC: No facial palsy, no dysarthria. CN 2-12 grossly intact, no sensory deficit, normal cognition, normal speech, no tremor PSYCHIATRIC: alert cooperative and oriented to person, place and time. Principal Diagnosis Acute respiratory failure, pneumonia due to COVID-19 virus infection, acute urinary retention Discharge Exam Lying in bed with mild shortness of breath Constitutional + acute distress (Due to shortness of breath), + ill appearing and average body habitus Eyes PERRL, conjunctivae normal, anicteric sclerae ENMT external ear and nose normal, oropharynx normal Neck trachea midline, no thyromegaly Respiratory + labored breathing and + cough; no respiratory distress Auscultation: + diminished lung sounds and + crackles (At the bases) Cardiovascular Rate/Rhythm: regular rate and regular rhythm; not tachycardic Heart Sounds: normal S1 and normal S2; no murmur Extremities: + edema (Trace edema bilaterally) Gastrointestinal (Abdomen) Inspection/Auscultation: normal bowel sounds; abdomen not distended Percussion/Palpation: abdomen soft; abdomen nontender Psychiatric A+Ox3, euthymic affect Lymphatic no cervical or axillary lymphadenopathy Discharge Data Allergies Allergy/AdvReac Type Severity Reaction Status Date / Time No Known Allergies Allergy Unverified 12/20/20 18:19 Consultations 12/20/20 17:43 ED Decision to Admit Stat Ordered Studies 01/05/21 15:18 CT angio chest PE protocol Urgent Hospital Course (1) Acute respiratory failure: Management as documented below He has been requiring up to 4 L of oxygen via nasal cannula to maintain saturation (2) Pneumonia due to COVID-19 virus: Present on admission with worsening shortness of breath CTA chest showed no evidence of pulmonary embolism. Multifocal groundglass and consolidative opacities are compatible with history of Covid pneumonia. Unvaccinated patient with prolonged symptoms so no antiviral therapy offered. He has completed ten days of decadron therapy at this time. Was receiving daily Lasix but this was held 2/2 relative hypotension. Lungs are more clear now. Continue incentive spirometer. Continue to work with PT/OT to improve strength and endurance. Continue oxygen supplementation--main thing we are now seeing is his higher need for oxygen supplementation wtih exertion as opposed to rest. He has been very short of breath and requires high flow oxygen with ambulation and minimal exertion but the symptoms have improved and [facility] Has had PT and OT evaluation and awaiting to go to [facility] and continue PT and OT for further improvement Remains stable and has been requiring up to 4 L of oxygen at rest to maintain saturation Is been accepted to [facility] and will be transferred to [facility] this afternoon (3) Acute urinary retention: resolved. (4) Tachycardia: Heart rate improved Continue metoprolol 12.5 twice daily Continue monitor closely (5) Constipation: Resolved. Remains on current bowel regimen. Ambulate with assistance as tolerated. (6) DVT prophylaxis: Lovenox Full Code Dispo-cont PCU monitoring. Plan for SNF transition this week. Total Time Total Time Spent Total Time Spent (In Minutes): 40 minutes Discharge Plan Discharge Items Patient Disposition: Transfer Inpatient Rehab Fac Reason For Visit: ACUTE RESPIRATORY FAILURE 2/2 COVID PNEUMONIA Discharge Diagnosis: Acute respiratory failure, pneumonia due to COVID-19 virus infection, acute urinary retention Condition on Discharge: Fair Activity: As commented below Activity Comment: Continue PT and OT Non-emergency contact: Primary Care Provider Call non-emergency contact if: you have any medication questions and your symptoms worsen Follow-up/Referrals: PCP,NO [Primary Care Provider] - (Please make an appointment within 7 days with your primary care provider following discharge from the facility) Diet: Regular Addtl Attending Provider Instructions: Please take precautions to avoid fall Continue PT and OT as advised Continue oxygen as advised Please make a follow-up appointment with your PCP within 7 days following discharge from the resident Pending Studies at Discharge: No Stand-Alone Forms: My [facility] Skilled Items Patient informed of condition?: Yes DNR: No (Full resuscitation without mechanical ventilation) Discharge Level of Care: Skilled Communicable Disease: No Discharge Prognosis: Stable Lines: None Urinary Catheter: No Medications and DC Order Prescriptions: New metoprolol tartrate 25 mg Tablet 12.5 mg PO BID Qty: 14 RF: 0 potassium chloride 20 mEq Tablet,Er Particles/Crystals 20 meq PO QAM Qty: 30 RF: 0 zinc sulfate [Orazinc] 50 mg zinc (220 mg) Capsule 220 mg PO QAM Qty: 30 RF: 0 promethazine 25 mg Tablet 25 mg PO Q6H PRN (Reason: allergy symptoms) Qty: 20 RF: 0 cholecalciferol (vitamin D3) 25 mcg (1,000 unit) Capsule 1,000 unit PO QAM Qty: 30 RF: 0 ascorbic acid (vitamin C) [Vitamin C] 500 mg Tablet 500 mg PO BID Qty: 30 RF: 0 Continued albuterol sulfate 90 mcg/actuation HFA aerosol inhaler 2 puff INHALATION Q4 PRN (Reason: Shortness Of Breath) RF: 0 Discontinued prednisone 20 mg tablet 40 mg PO BID RF: 0 Discharge Orders: Discharge Order (Routine); Ordered 01/16/21 Ordered By: Cheng Levy/Other Patient Handouts: A1C Admission Data Admit Date/Time: 12/20/20 17:23 Attending Provider: Cheng Burks Admit Provider: Amena Smith Primary Care Provider: PCP,NO Other Providers: Amena Smith ; [facility] ; [facility] Other Interventions: Discharge Summary Assessment (RN) Last Done: 01/16/21 11:08
== END 2021-01-16 15:49 | DRG 177 ==
LOC: ED 13:42 → 2E 17:23 → SUATTDRO 17:23 → 2E 18:45 → 2S 01-13 07:05